=== PATIENT | female | born 1940 | race Caucasian/White ===

== ENCOUNTER → 2016-07-19 | Outpatient (CLI) | payer OTHER ==
[~2016-07-19] MED LIST: ALBUAER2 INH; ALPR0.5T PO; ASPEC81 PO; BCTO TOP; BENZ10LO2 PO; BSP/10 PO; BUSP-8 PO; CARI350T28 PO; CLOB-65 EXT; CYM/30 PO; CYM60 PO; DICL1GEL28 TOP; DPH/ PO; ERGO1CAP35 PO; EZET10TA63 PO; FLUO0.05 TOP; FLV1 PO; FURO40TA3 PO; HYDCR1CL EXT; HYDR-389 PO; ISS/10 PO; KETO2CRE14 EX; LEVO112T2 PO; METO50TA7 PO; MORP30TA23 PO; NTRGSL/4 SL; OXGN; PHEN-876 PO; POTA10CA28 PO; ROSU40TA PO; SPIR25TA PO; WARF3TAB PO; [UNRECOGNIZED DRUG - CODE]; [UNRECOGNIZED DRUG - CODE] OTL
[2016-07-19 12:31] LABS: INR 2.4 (0.9-1.1); PROTHROMBIN TIME (PATIENT) 26.6 SECONDS (9.0-12.0)
== END | disposition home or self-care (01) ==
LOC: C.LABWYN 10:55
PROVIDERS: ATTEND Pharmacist Pharmacotherapy
DX: Z51.81 Encounter for therapeutic drug level monitoring (principal); Z79.01 Long term (current) use of anticoagulants

== ENCOUNTER → 2016-08-16 | Outpatient (CLI) | payer OTHER ==
[2016-08-16 08:59] LABS: INR 2.2 (0.9-1.1); PROTHROMBIN TIME (PATIENT) 24.1 SECONDS (9.0-12.0)
== END | disposition home or self-care (01) ==
LOC: C.LABWYN 08:29
PROVIDERS: ATTEND Internal Medicine
DX: Z51.81 Encounter for therapeutic drug level monitoring (principal); Z79.01 Long term (current) use of anticoagulants

== ENCOUNTER → 2016-08-25 | Outpatient (CLI) | payer OTHER ==
[2016-08-25 13:05] LABS: BLOOD UREA NITROGEN 13 mg/dl (7-18); CARBON DIOXIDE 35 mmol/L (21-32); CHLORIDE 103 mmol/L (98-107); CREATININE 0.86 mg/dl (0.60-1.20); GLUCOSE 82 mg/dl (70-99); POTASSIUM 4.2 mmol/L (3.5-5.1); SODIUM 143 mmol/L (136-145)
== END | disposition home or self-care (01) ==
LOC: C.LABWYN 12:46
PROVIDERS: ATTEND Nurse Practitioner Family
DX: I10 Essential (primary) hypertension (principal)

== ENCOUNTER → 2016-09-15 | Outpatient (CLI) | payer OTHER ==
[2016-09-15 13:38] LABS: INR 2.1 (0.9-1.1); PROTHROMBIN TIME (PATIENT) 22.8 SECONDS (9.0-12.0)
== END | disposition home or self-care (01) ==
LOC: C.LABWYN 07:30
PROVIDERS: ATTEND Pharmacist Pharmacotherapy
DX: Z51.81 Encounter for therapeutic drug level monitoring (principal); Z79.01 Long term (current) use of anticoagulants

== ENCOUNTER → 2016-10-13 | Outpatient (CLI) | payer OTHER ==
[2016-10-13 12:29] LABS: INR 2.4 (0.9-1.1); PROTHROMBIN TIME (PATIENT) 26.8 SECONDS (9.0-12.0)
== END | disposition home or self-care (01) ==
LOC: C.LABWYN 12:18
PROVIDERS: ATTEND Pharmacist Pharmacotherapy
DX: Z51.81 Encounter for therapeutic drug level monitoring (principal); Z79.01 Long term (current) use of anticoagulants

== ENCOUNTER → 2016-11-10 | Outpatient (CLI) | payer OTHER ==
[2016-11-10 12:27] LABS: INR 2.5 (0.9-1.1); PROTHROMBIN TIME (PATIENT) 28.2 SECONDS (9.0-12.0)
== END | disposition home or self-care (01) ==
LOC: C.LABWYN 12:44
PROVIDERS: ATTEND Pharmacist Pharmacotherapy
DX: I21.3 ST elevation (STEMI) myocardial infarction of unspecified site (principal)

== ENCOUNTER → 2016-12-08 | Outpatient (CLI) | payer OTHER ==
[2016-12-08 12:33] LABS: INR 2.7 (0.9-1.1); PROTHROMBIN TIME (PATIENT) 30.4 SECONDS (9.0-12.0)
== END | disposition home or self-care (01) ==
LOC: C.LABWYN 13:40
PROVIDERS: ATTEND Pharmacist Pharmacotherapy
DX: Z51.81 Encounter for therapeutic drug level monitoring (principal); Z79.01 Long term (current) use of anticoagulants

== ENCOUNTER → 2017-01-05 | Outpatient (CLI) | payer OTHER ==
[2017-01-05 12:44] LABS: INR 2.3 (0.9-1.1); PROTHROMBIN TIME (PATIENT) 25.7 SECONDS (9.0-12.0)
== END | disposition home or self-care (01) ==
LOC: C.LABWYN 13:30
PROVIDERS: ATTEND Pharmacist Pharmacotherapy
DX: Z51.81 Encounter for therapeutic drug level monitoring (principal); Z79.01 Long term (current) use of anticoagulants

== ENCOUNTER → 2017-02-02 | Outpatient (CLI) | payer OTHER ==
[2017-02-02 12:43] LABS: INR 2.7 (0.9-1.1); PROTHROMBIN TIME (PATIENT) 30.6 SECONDS (9.0-12.0)
== END | disposition home or self-care (01) ==
LOC: C.LABWYN 12:32
PROVIDERS: ATTEND Pharmacist Pharmacotherapy
DX: Z51.81 Encounter for therapeutic drug level monitoring (principal); Z79.01 Long term (current) use of anticoagulants

== ENCOUNTER → 2017-03-02 | Outpatient (CLI) | payer OTHER ==
[2017-03-02 12:44] LABS: INR 1.9 (0.9-1.1); PROTHROMBIN TIME (PATIENT) 20.7 SECONDS (9.0-12.0)
== END | disposition home or self-care (01) ==
LOC: C.LABWYN 15:25
PROVIDERS: ATTEND Internal Medicine
DX: Z79.01 Long term (current) use of anticoagulants (principal)

== ENCOUNTER → 2017-03-30 | Outpatient (CLI) | payer OTHER ==
[2017-03-30 12:11] LABS: PROTHROMBIN TIME (PATIENT) 22.1 SECONDS (9.0-12.0)
== END | disposition home or self-care (01) ==
LOC: C.LABWYN 12:20
PROVIDERS: ATTEND Internal Medicine
DX: Z51.81 Encounter for therapeutic drug level monitoring (principal); Z79.01 Long term (current) use of anticoagulants

== ENCOUNTER → 2017-05-30 | Outpatient (CLI) | payer OTHER ==
[2017-05-30 12:45] LABS: INR 2.2 (0.9-1.1); PROTHROMBIN TIME (PATIENT) 23.9 SECONDS (9.0-12.0)
== END | disposition home or self-care (01) ==
LOC: C.LABWYN 12:13
PROVIDERS: ATTEND Pharmacist Pharmacotherapy
DX: Z51.81 Encounter for therapeutic drug level monitoring (principal); Z79.01 Long term (current) use of anticoagulants

== ENCOUNTER → 2017-06-27 | Outpatient (CLI) | payer OTHER ==
[2017-06-27 12:43] LABS: INR 2.2 (0.9-1.1); PROTHROMBIN TIME (PATIENT) 22.9 SECONDS (9.0-12.0)
== END | disposition home or self-care (01) ==
LOC: C.LABPVFM 10:28
PROVIDERS: ATTEND Pharmacist Pharmacotherapy
DX: Z51.81 Encounter for therapeutic drug level monitoring (principal); Z79.01 Long term (current) use of anticoagulants

== ENCOUNTER → 2017-07-25 | Outpatient (CLI) | payer OTHER ==
[2017-07-25 12:43] LABS: INR 2.9 (0.9-1.1)
== END | disposition home or self-care (01) ==
LOC: C.LABWYN 11:07
PROVIDERS: ATTEND Pharmacist Pharmacotherapy
DX: Z51.81 Encounter for therapeutic drug level monitoring (principal); Z79.02 Long term (current) use of antithrombotics/antiplatelets

== ENCOUNTER → 2017-08-22 | Outpatient (CLI) | payer OTHER ==
[~2017-08-22] MED LIST changes: -METO50TA7 PO; +METO50TA8 PO
[2017-08-22 12:52] LABS: INR 2.3 (0.9-1.1)
== END | disposition home or self-care (01) ==
LOC: C.LABWYN 10:52
PROVIDERS: ATTEND Physician Assistant
DX: Z51.81 Encounter for therapeutic drug level monitoring (principal); Z79.01 Long term (current) use of anticoagulants

== ENCOUNTER → 2017-09-19 | Outpatient (CLI) | payer OTHER ==
[2017-09-19 13:01] LABS: INR 1.8 (0.9-1.1)
== END | disposition home or self-care (01) ==
LOC: C.LABWYN 12:05
PROVIDERS: ATTEND Pharmacist Pharmacotherapy
DX: Z51.81 Encounter for therapeutic drug level monitoring (principal); I48.91 Unspecified atrial fibrillation; Z79.01 Long term (current) use of anticoagulants

== ENCOUNTER → 2017-09-21 | Outpatient (CLI) | payer OTHER ==
[2017-09-21 13:27] LABS: HEMOGLOBIN A1C 4.9 % (4.5-5.6)
== END | disposition home or self-care (01) ==
LOC: C.LABWYN 08:47
PROVIDERS: ATTEND Physician Assistant
DX: I25.10 Atherosclerotic heart disease of native coronary artery without angina pectoris (principal); N18.3 Chronic kidney disease, stage 3 (moderate)

== ENCOUNTER → 2017-10-17 | Outpatient (CLI) | payer OTHER ==
[2017-10-17 13:17] LABS: INR 2.7 (0.9-1.1)
== END | disposition home or self-care (01) ==
LOC: C.LABWYN 11:43
PROVIDERS: ATTEND Pharmacist Pharmacotherapy
DX: I48.91 Unspecified atrial fibrillation (principal); Z79.01 Long term (current) use of anticoagulants

== ENCOUNTER → 2017-10-26 | Outpatient (CLI) | payer OTHER ==
[2017-10-26 12:56] LABS: HEMATOCRIT 42.5 % (37-47); HEMOGLOBIN 13.3 g/dL (12.0-16.0); MEAN CELL VOLUME 97.5 fL (80-100); MEAN CORPUSCULAR HEMOGLOBIN 30.5 pg (25-34); MEAN CORPUSCULAR HGB CONC 31.3 g/dl (32-36); MEAN PLATELET VOLUME 10.1 fL (7.4-10.4); PLATELET COUNT 180 K/uL (130-400); RED CELL DISTRIBUTION WIDTH SD 50.3 fL (36.4-46.3); WHITE BLOOD COUNT 6.08 K/uL (4.8-10.8)
[2017-10-26 14:13] LABS: BLOOD UREA NITROGEN 21 mg/dl (7-18); CALCIUM 8.6 mg/dl (8.5-10.1); CARBON DIOXIDE 36 mmol/L (21-32); CREATININE 1.09 mg/dl (0.60-1.20); GLUCOSE 155 mg/dl (70-99); POTASSIUM 4.6 mmol/L (3.5-5.1); SODIUM 139 mmol/L (136-145)
== END | disposition home or self-care (01) ==
LOC: C.LABWYN 13:25
PROVIDERS: ATTEND Nurse Practitioner Adult Health
DX: E03.9 Hypothyroidism, unspecified (principal); M81.0 Age-related osteoporosis without current pathological fracture; E78.5 Hyperlipidemia, unspecified; I48.91 Unspecified atrial fibrillation

== ENCOUNTER → 2017-10-31 | Outpatient (CLI) | payer OTHER | END | disposition home or self-care (01) | LOC: C.LABWYN 17:29 | PROVIDERS: ATTEND Nurse Practitioner Adult Health | DX: E78.5 Hyperlipidemia, unspecified (principal); I10 Essential (primary) hypertension; E03.9 Hypothyroidism, unspecified; M81.0 Age-related osteoporosis without current pathological fracture ==

== ENCOUNTER → 2017-11-14 | Outpatient (CLI) | payer OTHER ==
[2017-11-14 14:12] LABS: INR 3.2 (0.9-1.1)
== END | disposition home or self-care (01) ==
LOC: C.LABWYN 16:53
PROVIDERS: ATTEND Pharmacist Ambulatory Care
DX: I48.91 Unspecified atrial fibrillation (principal)

== ENCOUNTER → 2018-01-09 | Outpatient (CLI) | payer OTHER ==
[~2018-01-09] MED LIST changes: -ALBUAER2 INH; +ALPR-411 PO; -ALPR0.5T PO; -ASPEC81 PO; +ASPI81TA28 PO; -BCTO TOP; -BENZ10LO2 PO; -BSP/10 PO; -CLOB-65 EXT; -CYM/30 PO; -CYM60 PO; +DEXT30TA7 PO; -DICL1GEL28 TOP; +DIPH-416 PO; -DPH/ PO; +DULO60CA44 PO; -ERGO1CAP35 PO; +ERGO500037 PO; -FLUO0.05 TOP; -FLV1 PO; +FOLI1TAB8 PO; +FURO-85 PO; -FURO40TA3 PO; -HYDCR1CL EXT; -HYDR-389 PO; -KETO2CRE14 EX; -LEVO112T2 PO; +LEVO137T3 PO; +LSX40 PO; +METO25TA3 PO; -METO50TA8 PO; +MORP1TAB12 PO; -MORP30TA23 PO; -NTRGSL/4 SL; +NTRGSL/4 UT; -PHEN-876 PO; -POTA10CA28 PO; -WARF3TAB PO; +WARF3TAB6 PO; -[UNRECOGNIZED DRUG - CODE]; -[UNRECOGNIZED DRUG - CODE] OTL; +[UNRECOGNIZED DRUG - CODE] TOP
[2018-01-09 12:58] LABS: INR 2.9 (0.9-1.1)
== END | disposition home or self-care (01) ==
LOC: C.LABWYN 13:48
PROVIDERS: ATTEND Internal Medicine
DX: I48.91 Unspecified atrial fibrillation (principal)

== ENCOUNTER → 2018-02-06 | Outpatient (CLI) | payer OTHER | END | disposition home or self-care (01) | LOC: C.LABWYN 16:23 | PROVIDERS: ATTEND Pharmacist Pharmacotherapy | DX: Z51.81 Encounter for therapeutic drug level monitoring (principal); Z79.01 Long term (current) use of anticoagulants ==

== ENCOUNTER 2019-01-23 08:22 | Inpatient (IN) ==
[2019-01-23] MEDS ORDERED: RAPID SEQUENCE INDUCTION BAG ONE (08:26)
[2019-01-23] MEDS ORDERED: ALBUT/IPRATROP 3MG/0.5MG NEB 3 ML VIAL ONE (08:29)
[2019-01-23] MEDS ORDERED: ALBUT/IPRATROP 3MG/0.5MG NEB 3 ML VIAL INH STA (08:30)
[2019-01-23] MEDS ORDERED: NITROGLYCERIN 2% OINTMENT 30GM TUBE EXT STA (08:37)
[2019-01-23] MEDS ORDERED: NITROGLYCERIN 2% OINTMENT 30GM TUBE ONE (08:39)
[2019-01-23] MEDS ORDERED: FUROSEMIDE 40 MG/4 ML VIAL IV STA (08:45)
[2019-01-23 08:50] LABS: Basophils # (auto) 0.03 K/uL (0-0.2); Basophils % (auto) 0.3 %; Hematocrit (blood only) 48.3 % (37-47); Immature Granulocytes # (auto) 0.04 K/uL (0.00-0.02); Immature Granulocytes % (auto) 0.4 %; Lymphocytes # (auto) 1.63 K/uL (1.2-3.4); Lymphocytes % (auto) 16.3 %; Mean Corpuscular Hgb Conc 33.1 g/dL (32-36); Mean Corpuscular Volume 90.8 fL (80-100); Mean Platelet Volume 9.5 fL (7.4-10.4); Monocytes # (auto) 1.86 K/uL (0.11-0.59); Monocytes % (auto) 18.6 %; Neutrophils # (auto) 6.46 K/uL (1.4-6.5); Neutrophils % (auto) 64.4 %; Nucleated RBC # (auto) 0.16 K/uL (0-0); Nucleated RBC % (auto) 1.6 %; Platelet Count 210 K/uL (130-400); RDW Coefficient of Variation 18.1 % (11.5-14.5); RDW Standard Deviation 59.8 fL (36.4-46.3); Red Blood Count 5.32 M/uL (4.2-5.4); White Blood Count 10.02 K/uL (4.8-10.8)
[2019-01-23 08:53] LABS: Base Excess VBG 2.8 mEq/L; Oxygen Saturation VBG 66.9 %; pH VBG 7.28 (7.36-7.41)
--- NOTE | 2019-01-23 09:06 | XRay Report ---
SINGLE VIEW CHEST CLINICAL HISTORY: Dyspnea. FINDINGS: An AP, portable, upright chest radiograph is compared to study dated 12/10/2017. The examina tion is degraded by portable technique and patient rotation. The heart is enlarged and there is ath erosclerotic calcification of the thoracic aorta. There is pulmonary vascular congestion. Diffuse ret iculonodular densities and hazy opacities likely represent interstitial edema. No large pleural effus ion or pneumothorax is seen. The skeletal structures are osteopenic. The bony thorax is grossly intac t. IMPRESSION: 1. Cardiomegaly with evidence of congestive failure. 2. Diffuse reticulonodular airspace opacities have increased from previous and likely represent a com ponent of interstitial edema. Clinical correlation will be required and radiographic follow-up to res olution is recommended. Electronically signed by: Janes Aguirre M.D. 01/23/2019 9:05 AM
[2019-01-23 09:07] LABS: Alanine Aminotransferase 27 U/L (12-78); Albumin Level 3.1 gm/dl (3.4-5.0); Aspartate Aminotransferase 28 U/L (15-37); BUN Creatinine Ratio 19.6 (10-20); Blood Urea Nitrogen 23 mg/dl (7-18); Calcium 9.8 mg/dl (8.5-10.1); Carbon Dioxide 31 mmol/L (21-32); Chloride 100 mmol/L (98-107); Est GFR (African American) 53.5; Est GFR (Non-African American) 46.2; Glucose 134 mg/dl (70-99); Magnesium 2.1 mg/dl (1.8-2.4); Potassium 4.4 mmol/L (3.5-5.1); Sodium 139 mmol/L (136-145)
[2019-01-23 09:13] LABS: Prothrombin Time 54.8 Seconds (9.0-12.0)
[2019-01-23 09:15] LABS: INR 6.1 (0.9-1.1); Partial Thromboplastin Time 53.8 Seconds (21.0-31.0)
[2019-01-23 09:19] LABS: Appearance Urine Cloudy (Clear); Bacteria Urine Automated Negative (Negative); Color Urine Dark Yellow; Epithelial Cell Urine Auto >30 /lpf (0-5); Glucose Urine UA Negative (Negative); Ketones Urine Trace (Negative); Leukocyte Esterase Urine Negative (Negative); Nitrite Urine Negative (Negative); Protein Urine 3+ (Negative); Specific Gravity Urine 1.031 (1.000-1.030); Urobilinogen Urine Negative (Negative); pH Urine 5.5 (4.5-7.5)
[2019-01-23 09:26] LABS: Albumin Globulin Ratio 0.6 (0.9-2); Alkaline Phosphatase 102 U/L (45-117); Bilirubin,Total 0.7 mg/dl (0.2-1); Globulin 5.2 gm/dl (2.5-4.0); NT Pro B Type Natriuretic Pept 3988 pg/ml (0-1800); Total Protein 8.3 gm/dl (6.4-8.2); Troponin I 0.439 ng/ml (0-0.045)
[2019-01-23 09:32] LABS: Bilirubin Urine Negative (Negative); Cast Urine Automated >30 /lpf (0-5); Granular Casts Urine >30 /lpf (0); Ictotest Urine Negative (Negative)
--- NOTE | 2019-01-23 10:24 | History & Physical Report ---
Date of Service January 23, 2019 Assessment & Plan (1) Acute on chronic respiratory failure: This is a 78-year-old female with a PMH of chronic respiratory failure with hypoxia on 2L [place] O2, COPD, current tobacco use, CAD (s/p stents), severe ischemic cardiomyopathy with EF of 20-25%, CKD 3, paroxysmal A. fib on anticoagulation, fibromyalgia and other medical problems listed below who presents from [facility] with acute respiratory failure in setting of acute decompensated heart failure and COPD exacerbation. -Hypoxic in the 60s, cyanotic and dyspneic on home 2L this morning. Significant improvement on BiPAP in the ED -Continue to monitor on BiPAP. VBG with pH of 7.28. Lactic elevated 2.7 -In setting of COPD exacerbation in active smoker, acute decompensated heart failure -Management per ICU (2) Acute decompensated heart failure: History of anterior WA in 2005 with severe ischemic cardiomyopathy -Most recent echo from 2016 with severely enlarged left ventricular cavity, akinesis of mid and apical anterior septum and inferior shin, akinesis of the apical lateral and anterior shin. Calculated EF 20 to 25% -Was evaluated by EP service in 2013 and ICD therapy still offered but declined -CXR today with cardiomegaly and evidence of congestive heart failure. Troponin mildly elevated at 0.439. BNP elevated at 3988 -Given 60mg IV Lasix in ED, strict I&Os, daily weights -Holding home PO lasix (3) COPD exacerbation: Active smoker but has decreased amount to 10 cigarettes daily -Continue BiPAP, IV solu-medrol, neb treatments and Levaquin per Dr. Horn -ABG showed improvement of pH from 7.28 to 7.36 since initiation of bipap -Recently established with [facility] pulmonology for COPD. CT chest with evidence of 9 mm ground glass opacity with six-month follow-up CT scheduled in April 2019 (4) CAD (coronary artery disease): H/o anterior WA in 2005 s/p stents -No chest pain or ischemic changes on EKG -Continue baby aspirin, Isosordil, statin (5) CKD (chronic kidney disease), stage III: Kidney function at baseline -Continue to monitor with daily BMP (6) Supratherapeutic INR: INR supratherapeutic at 6.1 -Holding anticoagulation, no evidence of active bleeding (7) Paroxysmal A-fib: Sinus tachycardia on EKG -Continue Toprol (8) Tobacco use: Strong cessation recommended (9) Mood disorder: Continue Cymbalta, Buspar, Xanax PRN (10) Fibromyalgia: Continue home MS Contin, muscle relaxer as needed (11) Hypothyroidism: Continue levothyroxine DVT Ppx: Holding coumadin for now Code status: FULL per discussion with patient and family. Only interested in em ergent intubation, not on [facility] mechanical [facility] PCP: Sandra at [facility] Dispo: Admitted to ICU. Discharge planning ordered. Patient seen in collaboration with Dr. An. Please see addendum. History of Present Illness Chief Complaint: Respiratory failure Primary Care Provider: [facility] This is a 78-year-old female with a PMH of chronic respiratory failure with hypoxia on 2L [place] O2, COPD, current tobacco use, CAD (s/p stents), severe ischemic cardiomyopathy with EF of 20-25%, CKD 3, paroxysmal A. fib on anticoagulation, fibromyalgia and other medical problems listed below who presents from [facility] with acute respiratory failure. Patient was reportedly found this morning hypoxic in the 60s, cyanotic and dyspneic on home 2 L. Placed on high flow oxygen per EMS and transitioned to BiPAP in the ED with improvement. Patient with oxygen saturation of 96% on BiPAP now with resolution of tachypnea. History of anterior WA in 2005 with severe ischemic cardiomyopathy. Most recent echo from 2016 with severely enlarged left ventricular cavity, akinesis of mid and apical anterior septum and inferior shin, akinesis of the apical lateral and anterior shin. Calculated EF 20 to 25%. Was evaluated by EP service in 2013 but was not felt to be an ideal candidate for ICD therapy. ICD therapy still offered but declined. Follows with Nikolay So PA-C and is on Lasix 20mg and spironolactone 25mg daily. Also recently established with [facility] pulmonology for COPD. CT chest with evidence of 9 mm ground glass opacity with six-month follow-up CT scheduled in April 2019. Is on Coumadin for paroxysmal atrial fibrillation. In ED, found initially to be hypertensive at 138/102 with tachypnea of 32. EKG reveals sinus tach with PVCs at 123 bpm. Chest x-ray with cardiomegaly and evidence of congestive heart failure. VBG with pH of 7.28. Lactic elevated 2.7. Troponin mildly elevated at 0.439. BNP elevated at 3988. Clinical status much improved on BiPAP. Also received breathing treatment, IV Lasix 60 mg and nitro paste. ED physician discussed with ICU attending, who will evaluate the patient further in the unit. History primarily obtained by daughter at bedside. Patient is alert and conversing but ROS limited due to patient being on BiPAP. Denies any fever, chills, chest pain. Chronic abdominal pain. Allergies Allergy/AdvReac Type Severity Reaction Status Date / Time fentanyl Allergy Mild Verified 01/23/19 09:22 nitrofurantoin Allergy Mild OTHER Verified 01/23/19 09:22 Penicillins Allergy Mild Verified 01/23/19 09:22 Home Medications Home Medications Medication Instructions Recorded Confirmed Type albuterol sulfate [Ventolin HFA] 90 mcg INHALATION Q4H PRN 01/23/19 01/23/19 History alprazolam 0.5 mg PO TID PRN 01/23/19 01/23/19 History alum-mag hydroxide-simeth [Mi-Acid] 15 ml PO Q4H PRN 01/23/19 01/23/19 History aspirin 81 mg PO HS 01/23/19 01/23/19 History betamethasone, augmented 1 applic TOPICAL BID 01/23/19 01/23/19 History buspirone 10 mg PO BID 01/23/19 01/23/19 History carboxymethylcellulose-glycern 0.5 drp OPHTHALMIC (EYE) TID 01/23/19 01/23/19 History [Refresh Optive] carisoprodol 350 mg PO TID PRN 01/23/19 01/23/19 History duloxetine 60 mg PO HS 01/23/19 01/23/19 History ergocalciferol (vitamin D2) 50,000 unit PO WK 01/23/19 01/23/19 History [Vitamin D2] ezetimibe 10 mg PO PM 01/23/19 01/23/19 History fluticasone propion-salmeterol 1 inh INHALATION Q12H 01/23/19 01/23/19 History [Advair Diskus] folic acid 1 mg PO QAM 01/23/19 01/23/19 History furosemide 20 mg PO DAILY 01/23/19 01/23/19 History guaifenesin [Mucinex] 600 mg PO BID PRN 01/23/19 01/23/19 History ipratropium-albuterol 0.5 ml INHALATION Q4H PRN 01/23/19 01/23/19 History iron,carbonyl-vitamin C [Vitron-C] 65 tab PO MOWEFR@0900 01/23/19 01/23/19 History isosorbide dinitrate 10 mg PO TID 01/23/19 01/23/19 History ketoconazole 2 % TOPICAL BID PRN 01/23/19 01/23/19 History levothyroxine 112 mcg PO QAM 01/23/19 01/23/19 History metoprolol succinate 25 mg PO QAM 01/23/19 01/23/19 History morphine 30 mg PO Q12H PRN 01/23/19 01/23/19 History nitroglycerin 0.4 mg SUBLINGUAL QAM PRN 01/23/19 01/23/19 History ondansetron HCl 4 mg PO Q6H PRN 01/23/19 01/23/19 History phenazopyridine 200 mg PO TID PRN 01/23/19 01/23/19 History rosuvastatin 40 mg PO HS 01/23/19 01/23/19 History spironolactone 25 mg PO 5XWK 01/23/19 01/23/19 History tiotropium bromide [Spiriva with 18 mcg INHALATION QAM 01/23/19 01/23/19 History HandiHaler] tobramycin 1 drp OPHTHALMIC (EYE) Q4H 01/23/19 01/23/19 History tramadol 50 mg PO Q4H PRN 01/23/19 01/23/19 History warfarin 4 mg PO HS 01/23/19 01/23/19 History white petrolatum-mineral oil 20 inch OPHTHALMIC (EYE) HS 01/23/19 01/23/19 History [Soothe Night Time Lubricant] Past Med/Surg History Medical History Tobacco use (Chronic) Mood disorder (Chronic) Fibromyalgia (Chronic) CKD (chronic kidney disease), stage III (Chronic) CAD (coronary artery disease) (Chronic) Hypothyroidism (Chronic) Chronic respiratory failure (Chronic) home 2L [place] O2 Ischemic cardiomyopathy (Chronic) IBS (irritable bowel syndrome) (Chronic) COPD (chronic obstructive pulmonary disease) (Chronic) Chronic interstitial cystitis (Chronic) Chronic pain (Chronic) Surgical History H/O cystoscopy (Chronic) H/O heart artery stent (Chronic) Family History Other Colorectal cancer Heart disease Social History Preferred Language: [place] Communication Ability: Effective Demurrage Clerk Required: Yes Beliefs That Will Affect Care: None Current Living Situation: Personal Care Facility Current Living Situation Comment: [facility] Other Information That Helps Us Care for You: No Feels Safe at Home: Yes Safety Concerns: Feels Safe At This Time Smoking Status: Current every day smoker Tobacco Type: cigarettes Cigarettes Per Day: 10 Hx Alcohol Use: No Hx Substance Use: No Review of Systems Review of Systems: ROS limited due to patient requiring BiPAP for respiratory failure Physical Exam Physical Exam: General Appearance: WD/WN, no apparent distress, wearing bipap mask, alert Head: normocephalic, atraumatic Eyes: normal inspection, PERRL, EOMI ENT: hearing grossly normal, wearing bipap mask Neck: supple, no JVD, no adenopathy Respiratory/Chest: Coarse breath sounds throughout with bibasilar crackles, scattered expiratory wheezes. No respiratory distress or accessory muscle use Cardiovascular: tachycardic, no murmur appreciated, normal peripheral pulses , trace BLE edema Abdomen/GI: normal bowel sounds, soft, non-tender to palpation Extremities/Musculoskelatal: normal inspection, no calf tenderness, normal capillary refill Neurologic/Psych: alert, normal mood/affect, oriented x 3, moves all extremities spontaneously Skin: normal color, warm/dry Results & Data Vital Signs (Past 12 Hours) Vital Signs Temp Pulse Resp BP Pulse Ox 01/23/19 10:10 112 H 96 01/23/19 10:01 113 H 24 132/85 97 01/23/19 10:00 113 H 98 01/23/19 09:50 94 H 96 01/23/19 09:46 112 H 26 H 140/78 96 01/23/19 09:40 112 H 97 01/23/19 09:32 113 H 97 01/23/19 09:31 103 H 125/81 97 01/23/19 09:30 112 H 97 01/23/19 09:20 116 H 97 01/23/19 09:16 114 H 138/108 H 98 01/23/19 09:10 119 H 97 01/23/19 09:01 115 H 32 H 138/102 H 99 01/23/19 09:00 153 H 98 01/23/19 08:50 116 H 98 01/23/19 08:46 120 H 30 H 140/79 98 01/23/19 08:40 121 H 97 01/23/19 08:38 122 H 30 H 134/73 98 01/23/19 08:34 123 H 96 01/23/19 08:30 96 01/23/19 08:28 36.9 C 126 H 35 H 143/95 H 95 01/23/19 08:25 120 H 34 H 98 Laboratory Results Short CBC 01/23/19 Range/Units 08:39 WBC 10.02 (4.8-10.8) K/uL Hgb 16.0 (12.0-16.0) g/dL Hct 48.3 H (37-47) % Plt Count 210 (130-400) K/uL BMP 01/23/19 08:39 Sodium 139 Potassium 4.4 Chloride 100 Carbon Dioxide 31 BUN 23 H Creatinine 1.15 Glucose 134 H Calcium 9.8 Cardiac Enzymes 01/23/19 Range/Units 08:39 Troponin I 0.439 H* (0-0.045) ng/ml Liver Function 01/23/19 Range/Units 08:39 Total Bilirubin 0.7 (0.2-1) mg/dl AST 28 (15-37) U/L ALT 27 (12-78) U/L Alkaline Phosphatase 102 (45-117) U/L Albumin 3.1 L (3.4-5.0) gm/dl Urine 01/23/19 Range/Units 09:05 Urine Color Dark Yellow Urine Appearance Cloudy A (Clear) Urine pH 5.5 (4.5-7.5) Ur Specific [place] 1.031 H (1.000-1.030) Urine Protein 3+ H (Negative) Urine Glucose (UA) Negative (Negative) Diagnostic Findings CXR: IMPRESSION: 1. Cardiomegaly with evidence of congestive failure. 2. Diffuse reticulonodular airspace opacities have increased from previous and likely represent a component of interstitial edema. Clinical correlation will be required and radiographic follow-up to resolution is recommended. ECG Rhythm: sinus tachycardia Findings: + PVC Supervising Physician Co-Signing Physician Notes Attending addendum: Patient seen and examined care coordinated with Michelle Ghosh with [facility] This is a 78-year-old female with complex past medical history of chronic respiratory failure on 2 L O2 continuous/COPD, ongoing tobacco abuse, severe ischemic cardiomyopathy with EF of 20-25%, CKD stage III paroxysmal A. fib on anticoagulation Sent from [facility] [place] [facility] with hypoxic respiratory failure with oxygenation in the low 60s, requiring BiPAP ICU admission Patient's respiratory status improved after being on BiPAP, nebulizer treatment, antibiotic Chest x-ray: Cardiomegaly with evidence of congestive heart failure: proBNP elevated 3988, given 60 mg IV Lasix Physical exam:( focused) General, patient is alert and awake, requiring high flow oxygen, does not appear to be any distress HEENT, sclera nonicteric Pulmonary: Diffuse wheezing in all lung field, with bibasilar crackles Cardio: Irregularly irregular Abdomen: Benign Neuro: No focal neurological deficit Assessment plan: ACUTE HYPOXIC RESPIRATORY FAILURE HISTORY OF CHRONIC RESPIRATORY FAILURE WITH HOME O2 Acute respiratory failure with hypoxia and low-dose 60s on home 2 L oxygen via nasal cannula, improved after BiPAP treatment, possible cause of hypoxic respiratory failure -decompensation CHF/COPD exacerbation Improved after IV Lasix, nebulizer treatment, IV Solu-Medrol ACUTE DECOMPENSATED HEART FAILURE WITH SYSTOLIC DYSFUNCTION 3 of WA in 2005 with severe ischemic cardiomyopathy, recent echo EF 20-25%, not a candidate for AICD patient refused AICD in past IV Lasix, continue diuresis Cardiology eval ELEVATED TROPONIN/TYPE II [place] Patient had mild elevation of troponin, without active anginal symptoms, Possible demand ischemia in the setting of severe hypoxemic respiratory failure Patient's INR elevated more than 6 Indication of IV heparin anticoagulation Deferred repeat echo, cardiology consult Please refer to further documentation by Michelle Ghosh PA-C for discussion of other chronic issues Rosalia An MD
[2019-01-23] MEDS ORDERED: ICU PROTOCOL FOR HYPERGLYCEMIA PRN (10:42)
--- NOTE | 2019-01-23 11:13 | Critical Care Consultation ---
Date of Consultation January 23, 2019 Assessment & Plan (1) Admitted to intensive care unit: Elderly female admitted with acute respiratory failure secondary to acute pulmonary edema/exacerbation of chronic obstructive pulmonary disease. Neuro: From the neuro point the patient remains stable. There are no neurological deficit at this time and she is moving all extremities. Cardiac: The patient was admitted with pulmonary edema, tachycardia. She received 60 mg of IV Lasix seems to be putting out good urine. Oxygenation is stable at this time 95% on 70% FiO2 on BiPAP. We will continue with all her current management and also BiPAP supplements. Her troponin is elevated to 0.439 and her BNP is also elevated to 3988. Respiratory: The patient continued to smoke more than half pack of cigarettes a day. She is also admitted with acute exacerbation of chronic obstructive pulmonary disease and respiratory failure. Currently she remains on BiPAP and we are going to continue with that. We also going to start on NicoDerm patch 21 mg every 24 hours and also IV Solu-Medrol and nebulizer treatment. We will continue with the BiPAP and I am going to do ABG on current settings and adjust her BiPAP accordingly. According to the daughter patient was diagnosed with right upper lobe nodule on a CT scan of the chest. We do not have those results yet. Once she is more stable will have a CT scan of the chest and follow-up with a bronchoscopy if indicated. She was also strongly recommended to stop smoking. The patient also had ABG which revealed pH of 7.36 PCO2 58 PO2 of 94 base excess of 8 bicarb of 34 and saturation of 97% and this was on 50% FiO2 on a BiPAP. We will go down on high FiO2 to 40% and monitor closely. The patient is a chronic retainer of the CO2 secondary to her chronic moderate to severe COPD. I am also going to give her a course of Levaquin IV 500 mg daily. GI: From GI point the patient remains stable at this time. Hematology: The patient overall remains stable. Her H&H and platelets are also stable. Her H&H is 16/48 and her platelets are 210. Renal: The patient is making good urine. The patient received 60 mg of IV Lasix. Her potassium is 4.4 and her BUN/creatinine is 23/1.15. Her lactate was also elevated to 2.7. We are going to monitor her electrolytes very closely. Her magnesium was 1.9. If needed we will supplement all the electrolytes. If also needed we will give her another dose of IV Lasix. Endocrine: The patient had a TSH drawn which was 0.094. We are going to check it when she is more stable because at this stage she is admitted with the acute pulmonary edema and acute respiratory failure so results will be abnormal. Her blood sugar remains stable at 134. The patient is also on steroids and we are going to monitor it very closely and she is also on ICU glycemic control. I have discussed with the family at length and answered all the questions. I have spent greater than 55 minutes of critical care time. (2) Pulmonary edema: (3) Respiratory distress: (4) CHF (congestive heart failure): (5) CO2 retention: (6) Respiratory acidosis: (7) COPD exacerbation: History of Present Illness Reason for Consultation: Respiratory failure/patient on BiPAP Requesting Physician: Rosalia An MD Attending Physician: Rosalia An MD History of Present Illness This is a 78-year-old female who has past medical history significant for chronic obstructive pulmonary disease as well as cardiomyopathy and also she had coronary artery disease status post stent placement in the past and paroxysmal atrial fibrillation currently on anticoagulation, was brought into the hospital with increasing shortness of breath tightness in her chest and oxygen saturation of only in the 60s. According to the daughter who is by the bedside the patient continued to smoke more than half pack of cigarettes a day and she lives in a ssisted living and she was doing good until last night she was more short of breath she was hypoxemic and she was brought here where it was noticed that she was in acute pulmonary edema. In the emergency room she received 60 mg of IV Lasix and currently she is still passing urine. The patient remains on a BiPAP and seems to be oxygenating well and to 98%. The patient also has previous history of coronary artery disease, status post stent placement in the past and also history of chronic kidney disease. Currently she continues to smoke. 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 We do not have any results at this time. It seems patient also had a CT of the chest which revealed right upper lobe nodules and she refused for a bronchoscopy so she was told or recommended to go for a follow-up CT scan which is still pending. Currently she is still short of breath and remains on a BiPAP and a high flow of oxygen supplementation with saturation around 97%. Allergies Allergy/AdvReac Type Severity Reaction Status Date / Time fentanyl Allergy Mild Verified 01/23/19 09:22 nitrofurantoin Allergy Mild OTHER Verified 01/23/19 09:22 Penicillins Allergy Mild Verified 01/23/19 09:22 Home Medications Home Medications Medication Instructions Recorded Confirmed Type albuterol sulfate [Ventolin HFA] 90 mcg INHALATION Q4H PRN 01/23/19 01/23/19 History alprazolam 0.5 mg PO TID PRN 01/23/19 01/23/19 History alum-mag hydroxide-simeth [Mi-Acid] 15 ml PO Q4H PRN 01/23/19 01/23/19 History aspirin 81 mg PO HS 01/23/19 01/23/19 History betamethasone, augmented 1 applic TOPICAL BID 01/23/19 01/23/19 History buspirone 10 mg PO BID 01/23/19 01/23/19 History carboxymethylcellulose-glycern 0.5 drp OPHTHALMIC (EYE) TID 01/23/19 01/23/19 History [Refresh Optive] carisoprodol 350 mg PO TID PRN 01/23/19 01/23/19 History duloxetine 60 mg PO HS 01/23/19 01/23/19 History ergocalciferol (vitamin D2) 50,000 unit PO WK 01/23/19 01/23/19 History [Vitamin D2] ezetimibe 10 mg PO PM 01/23/19 01/23/19 History fluticasone propion-salmeterol 1 inh INHALATION Q12H 01/23/19 01/23/19 History [Advair Diskus] folic acid 1 mg PO QAM 01/23/19 01/23/19 History furosemide 20 mg PO DAILY 01/23/19 01/23/19 History guaifenesin [Mucinex] 600 mg PO BID PRN 01/23/19 01/23/19 History ipratropium-albuterol 0.5 ml INHALATION Q4H PRN 01/23/19 01/23/19 History iron,carbonyl-vitamin C [Vitron-C] 65 tab PO MOWEFR@0900 01/23/19 01/23/19 History isosorbide dinitrate 10 mg PO TID 01/23/19 01/23/19 History ketoconazole 2 % TOPICAL BID PRN 01/23/19 01/23/19 History levothyroxine 112 mcg PO QAM 01/23/19 01/23/19 History metoprolol succinate 25 mg PO QAM 01/23/19 01/23/19 History morphine 30 mg PO Q12H PRN 01/23/19 01/23/19 History nitroglycerin 0.4 mg SUBLINGUAL QAM PRN 01/23/19 01/23/19 History ondansetron HCl 4 mg PO Q6H PRN 01/23/19 01/23/19 History phenazopyridine 200 mg PO TID PRN 01/23/19 01/23/19 History rosuvastatin 40 mg PO HS 01/23/19 01/23/19 History spironolactone 25 mg PO 5XWK 01/23/19 01/23/19 History tiotropium bromide [Spiriva with 18 mcg INHALATION QAM 01/23/19 01/23/19 History HandiHaler] tobramycin 1 drp OPHTHALMIC (EYE) Q4H 01/23/19 01/23/19 History tramadol 50 mg PO Q4H PRN 01/23/19 01/23/19 History warfarin 4 mg PO HS 01/23/19 01/23/19 History white petrolatum-mineral oil 20 inch OPHTHALMIC (EYE) HS 01/23/19 01/23/19 History [Soothe Night Time Lubricant] Patient History Medical History Acute HI COPD (chronic obstructive pulmonary disease) IBS (irritable bowel syndrome) Social History Preferred Language: Yi Communication Ability: Effective 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 Most of the history was obtained from her daughter who was by the bedside. The patient remains full code and at this stage they would like everything to be done including CPR as well as shock and intubation if indicated. The patient is short of breath and when she came she was hypoxemic to 66%. She seems to be somewhat comfortable after she was started on BiPAP and her tachypnea and tachycardia has also improved. A chest x-ray was consistent with pulmonary edema and she was given 60 mg of IV Lasix and now she is passing good urine. Physical Exam Physical Exam: Elderly female lying in the bed on BiPAP not any acute distress breathing with the BiPAP with oxygen saturation of 98% on 100% FiO2. HEENT: Pupils are equally reactive to light. Unable to examine the oral cavity as well as nasal passages because currently she is wearing the BiPAP. Chest: Bilateral air entry with coarse breathing and scattered rhonchi also has expiratory wheeze. She also has bilateral crackles posteriorly. Cardiac: S1-S2 heard, tachycardia, no murmur gallop or rubs appreciated. GI: Abdomen is soft, nontender and bowel sounds are positive. Unable to palpate any mass. Neuro: The patient is currently sleeping but she is arousable and she tries to follow simple commands and she is also moving all extremities. Extremities: There is no clubbing, no edema. Nontender calf muscles. Skin: There is no rash or lesion seen. Psychiatrically: Unable to assess because of her current medical condition and mental status. Results & Data Vital Signs (Past 12 Hours) Vital Signs Temp Pulse Resp BP Pulse Ox 01/23/19 10:30 31 H 97 01/23/19 10:10 112 H 96 01/23/19 10:01 113 H 24 132/85 97 01/23/19 10:00 113 H 98 01/23/19 09:50 94 H 96 01/23/19 09:46 112 H 26 H 140/78 96 01/23/19 09:40 112 H 97 01/23/19 09:32 113 H 97 01/23/19 09:31 103 H 125/81 97 01/23/19 09:30 112 H 97 01/23/19 09:20 116 H 97 01/23/19 09:16 114 H 138/108 H 98 01/23/19 09:10 119 H 97 01/23/19 09:01 115 H 32 H 138/102 H 99 07/24/19 09:00 153 H 98 01/23/19 08:50 116 H 98 01/23/19 08:46 120 H 30 H 140/79 98 01/23/19 08:40 121 H 97 01/23/19 08:38 122 H 30 H 134/73 98 01/23/19 08:34 123 H 96 01/23/19 08:30 96 01/23/19 08:28 36.9 C 126 H 35 H 143/95 H 95 01/23/19 08:25 120 H 34 H 98 Laboratory Results Abnormal lab results 01/23/19 01/23/19 01/23/19 Range/Units 08:39 08:39 08:39 Hct 48.3 H (37-47) % RDW Std Deviation 59.8 H (36.4-46.3) fL RDW Coeff of Adrianna 18.1 H (11.5-14.5) % Immature Gran # (Auto) 0.04 H (0.00-0.02) K/uL [place] # (Auto) 1.86 H (0.11-0.59) K/uL Absolute Nucleated RBC 0.16 H (0-0) K/uL PT 54.8 H (9.0-12.0) Seconds INR 6.1 H* (0.9-1.1) APTT 53.8 H* (21.0-31.0) Seconds VBG pH (7.36-7.41) VBG pCO2 (38-50) mmHg BUN 23 H (7-18) mg/dl Glucose 134 H (70-99) mg/dl Lactate (0.4-2.0) mmol/L Troponin I 0.439 H* (0-0.045) ng/ml NT-Pro-B Natriuret Pep 3988 H (0-1800) pg/ml Total Protein 8.3 H (6.4-8.2) gm/dl Albumin 3.1 L (3.4-5.0) gm/dl Globulin 5.2 H (2.5-4.0) gm/dl Albumin/Globulin Ratio 0.6 L (0.9-2) Urine Appearance (Clear) Ur Specific [place] (1.000-1.030) Urine Protein (Negative) Urine Ketones (Negative) Urine Blood (Negative) Urine RBC (Auto) (0-4) /hpf U Hyaline Cast (Auto) (0-5) /lpf U Epithel Cells (Auto) (0-5) /lpf Granular Casts (0) /lpf 01/23/19 01/23/19 01/23/19 Range/Units 08:39 08:39 09:05 Hct (37-47) % RDW Std Deviation (36.4-46.3) fL RDW Coeff of Adrianna (11.5-14.5) % Immature Gran # (Auto) (0.00-0.02) K/uL [place] # (Auto) (0.11-0.59) K/uL Absolute Nucleated RBC (0-0) K/uL PT (9.0-12.0) Seconds INR (0.9-1.1) APTT (21.0-31.0) Seconds VBG pH 7.28 L (7.36-7.41) VBG pCO2 71 H (38-50) mmHg BUN (7-18) mg/dl Glucose (70-99) mg/dl Lactate 2.7 H* (0.4-2.0) mmol/L Troponin I (0-0.045) ng/ml NT-Pro-B Natriuret Pep (0-1800) pg/ml Total Protein (6.4-8.2) gm/dl Albumin (3.4-5.0) gm/dl Globulin (2.5-4.0) gm/dl Albumin/Globulin Ratio (0.9-2) Urine Appearance Cloudy A (Clear) Ur Specific [place] 1.031 H (1.000-1.030) Urine Protein 3+ H (Negative) Urine Ketones Trace H (Negative) Urine Blood 3+ H (Negative) Urine RBC (Auto) 5-10 H (0-4) /hpf U Hyaline Cast (Auto) >30 H (0-5) /lpf U Epithel Cells (Auto) >30 H (0-5) /lpf Granular Casts >30 H (0) /lpf Diagnostic Findings SINGLE VIEW CHEST CLINICAL HISTORY: Dyspnea. FINDINGS: An AP, portable, upright chest radiograph is compared to study dated 12/10/2017. The examination is degraded by portable technique and patient rotation. The heart is enlarged and there is atherosclerotic calcification of the thoracic aorta. There is pulmonary vascular congestion. Diffuse reticulonodular densities and hazy opacities likely represent interstitial edema. No large pleural effusion or pneumothorax is seen. The skeletal structures are osteopenic. The bony thorax is grossly intact. IMPRESSION: 1. Cardiomegaly with evidence of congestive failure. 2. Diffuse reticulonodular airspace opacities have increased from previous and likely represent a component of interstitial edema. Clinical correlation will be required and radiographic follow-up to resolution is recommended. Electronically signed by: Janes Aguirre M.D. 01/23/2019 9:05 AM PG Care Time/CCT Total # of Minutes Spent Total Time Spent: 55 Total Time Spent with Patient: Total time spent is greater than 50% in coordination of care (as documented) at patient's floor/unit and/or counseling patient: Critical Care Time: Yes Total Critical Care Time: 55 (1) CHF (congestive heart failure) Heart failure type: unspecified
[2019-01-23] MEDS: methylPREDNISolone 80 MG in SYRINGE 0 ML IV SCH ×2 (11:35→18:27)
[2019-01-23] MEDS: ALBUT/IPRATROP 3MG/0.5MG NEB 3 ML VIAL NEB SCH ×2 (11:38→15:30)
[2019-01-23] MEDS ORDERED: ACETAMINOPHEN 325 MG TAB PO PRN (11:40)
[2019-01-23 11:47] LABS: iSTAT Allen Test Pass; iSTAT Arterial Blood Gas HCO3 34 meg/L (19-24); iSTAT Carbon Dioxide 36 mEq/l (24-31); iSTAT FiO2 50 %; iSTAT Hemoglobin 15.3 g/dl (12.0-16.0)
[2019-01-23] MEDS ORDERED: LEVOFLOXACIN/D5W 750 MG/150 ML BAG IV SCH (12:00)
[2019-01-23] MEDS: NICOTINE 21 MG/24 HR TDSY TD SCH (12:25)
--- NOTE | 2019-01-23 12:52 | Emergency Department Note ---
Entered by Pallavi Sanchez acting as a scribe for History of Present Illness General Chief complaint: Respiratory Distress Time Seen by Provider: 01/23/19 08:30 Source: family and EMS Mode of arrival: EMS History of Present Illness Provider complaint: respiratory distress Onset (ago): hour(s) Pain Consistency: + other (episode) Quality: + other (respiratory distress) Associated symptoms: + other (lower extremity edema, diminished lung sounds in bases, abdomen distended and soft) Treatments prior to arrival: other (CPAP) The patient is a 78 year old female who presents to the ED with an episode of respiratory distress that began a few hours ago. Per EMS, the patient was found in respiratory distress this am. Per EMS, the last time she was checked on at [facility] was last night, and she seemed okay at that time. EMS states that the patient is on Coumadin, Lasix, receives 2L of oxygen via nasal cannula and has a history of acute ND, IBS, and COPD. Per EMS, the patient had an O2 sat of 67 when they were called. Per EMS, upon arrival, the patient was in significant distress and was on a 15L non-rebreather mask, with O2 sats in 80s and respiratory rate in mid 30s. EMS notes lower extremity edema that is worse on the right, diminished lung sounds in bases bilaterally, abdomen slightly distended and soft, and blood pressure that has been steady in the 130/70s. Per EMS, no DNR or DNI was obtained. EMS stated that she was given CPAP en route. The patient's daughter states that she would like to avoid intubation at all cost. HPI and ROS is limited secondary to respiratory distress. Home Medications Home Medications Medication Instructions Recorded Confirmed Type albuterol sulfate [Ventolin HFA] 90 mcg INHALATION Q4H PRN 01/23/19 01/23/19 History alprazolam 0.5 mg PO TID PRN 01/23/19 01/23/19 History alum-mag hydroxide-simeth [Mi-Acid] 15 ml PO Q4H PRN 01/23/19 01/23/19 History aspirin 81 mg PO HS 01/23/19 01/23/19 History betamethasone, augmented 1 applic TOPICAL BID 01/23/19 01/23/19 History buspirone 10 mg PO BID 01/23/19 01/23/19 History carboxymethylcellulose-glycern 0.5 drp OPHTHALMIC (EYE) TID 01/23/19 01/23/19 History [Refresh Optive] carisoprodol 350 mg PO TID PRN 01/23/19 01/23/19 History duloxetine 60 mg PO HS 01/23/19 01/23/19 History ergocalciferol (vitamin D2) 50,000 unit PO WK 01/23/19 01/23/19 History [Vitamin D2] ezetimibe 10 mg PO PM 01/23/19 01/23/19 History fluticasone propion-salmeterol 1 inh INHALATION Q12H 01/23/19 01/23/19 History [Advair Diskus] folic acid 1 mg PO QAM 01/23/19 01/23/19 History furosemide 20 mg PO DAILY 01/23/19 01/23/19 History guaifenesin [Mucinex] 600 mg PO BID PRN 01/23/19 01/23/19 History ipratropium-albuterol 0.5 ml INHALATION Q4H PRN 01/23/19 01/23/19 History iron,carbonyl-vitamin C [Vitron-C] 65 tab PO MOWEFR@0900 01/23/19 01/23/19 History isosorbide dinitrate 10 mg PO TID 01/23/19 01/23/19 History ketoconazole 2 % TOPICAL BID PRN 01/23/19 01/23/19 History levothyroxine 112 mcg PO QAM 01/23/19 01/23/19 History metoprolol succinate 25 mg PO QAM 01/23/19 01/23/19 History morphine 30 mg PO Q12H PRN 01/23/19 01/23/19 History nitroglycerin 0.4 mg SUBLINGUAL QAM PRN 01/23/19 01/23/19 History ondansetron HCl 4 mg PO Q6H PRN 01/23/19 01/23/19 History phenazopyridine 200 mg PO TID PRN 01/23/19 01/23/19 History rosuvastatin 40 mg PO HS 01/23/19 01/23/19 History spironolactone 25 mg PO 5XWK 01/23/19 01/23/19 History tiotropium bromide [Spiriva with 18 mcg INHALATION QAM 01/23/19 01/23/19 History HandiHaler] tobramycin 1 drp OPHTHALMIC (EYE) Q4H 01/23/19 01/23/19 History tramadol 50 mg PO Q4H PRN 01/23/19 01/23/19 History warfarin 4 mg PO HS 01/23/19 01/23/19 History white petrolatum-mineral oil 20 inch OPHTHALMIC (EYE) HS 01/23/19 01/23/19 History [Soothe Night Time Lubricant] Allergies Allergy/AdvReac Type Severity Reaction Status Date / Time fentanyl Allergy Mild Verified 01/23/19 09:22 nitrofurantoin Allergy Mild OTHER Verified 01/23/19 09:22 Penicillins Allergy Mild Verified 01/23/19 09:22 Past Med/Surg History Medical History Tobacco use (Chronic) Mood disorder (Chronic) Fibromyalgia (Chronic) CKD (chronic kidney disease), stage III (Chronic) CAD (coronary artery disease) (Chronic) Hypothyroidism (Chronic) Chronic respiratory failure (Chronic) home 2L NC O2 Ischemic cardiomyopathy (Chronic) IBS (irritable bowel syndrome) (Chronic) COPD (chronic obstructive pulmonary disease) (Chronic) Chronic interstitial cystitis (Chronic) Chronic pain (Chronic) Surgical History H/O cystoscopy (Chronic) H/O heart artery stent (Chronic) Family History Other Colorectal cancer Heart disease Social History Preferred Language: Dominican Communication Ability: Effective Slitter Helper Required: Yes Beliefs That Will Affect Care: None Current Living Situation: Personal Care Facility Current Living Situation Comment: [facility] Other Information That Helps Us Care for You: No Feels Safe at Home: Yes Safety Concerns: Feels Safe At This Time Smoking Status: Current every day smoker Tobacco Type: cigarettes Cigarettes Per Day: 10 Hx Alcohol Use: No Hx Substance Use: No Review of Systems See HPI for pertinent positives & negatives. HPI and ROS is limited secondary to respiratory distress. Physical Exam Vital Signs Vital Signs - 24 hr 01/23/19 08:11 01/23/19 08:25 01/23/19 08:28 Temperature 36.9 C Temperature Source Axillary Sepsis Recent Fever Within 48 Hours No Sepsis New/Unexplained Change in Mental Status No Sepsis Action Taken by Nursing No Action Required Pulse Rate 120 H 126 H Pulse Rate [Right Finger] Pulse Rate from SpO2 Sensor Pulse Rhythm Regular Pulse Strength Normal Respiratory Rate 34 H 35 H Respiratory Effort / Characteristics Spontaneous Labored Spontaneous Labored Respiratory Depth Shallow Shallow Respiratory Pattern Tachypnea Tachypnea Tachypnea Blood Pressure 143/95 H Blood Pressure Mean 111 Blood Pressure Position Sitting Pulse Oximetry 98 95 Oxygen Delivery Method BiPAP BiPAP Fraction of Inspired Oxygen 100 01/23/19 08:30 01/23/19 08:34 01/23/19 08:38 Temperature Temperature Source Sepsis Recent Fever Within 48 Hours Sepsis New/Unexplained Change in Mental Status Sepsis Action Taken by Nursing Pulse Rate 123 H 122 H Pulse Rate [Right Finger] Pulse Rate from SpO2 Sensor 123 H 122 H Pulse Rhythm Pulse Strength Respiratory Rate 30 H Respiratory Effort / Characteristics Respiratory Depth Respiratory Pattern Blood Pressure 134/73 Blood Pressure Mean 93 Blood Pressure Position Pulse Oximetry 96 96 98 Oxygen Delivery Method BiPAP Fraction of Inspired Oxygen 01/23/19 08:40 01/23/19 08:46 01/23/19 08:50 Temperature Temperature Source Sepsis Recent Fever Within 48 Hours Sepsis New/Unexplained Change in Mental Status Sepsis Action Taken by Nursing Pulse Rate 121 H 120 H 116 H Pulse Rate [Right Finger] 113 H Pulse Rate from SpO2 Sensor 121 H 120 H 118 H Pulse Rhythm Pulse Strength Respiratory Rate 31 H 30 H Respiratory Effort / Characteristics Short of Breath Respiratory Depth Respiratory Pattern Blood Pressure 140/79 Blood Pressure Mean 99 Blood Pressure Position Pulse Oximetry 96 98 98 Oxygen Delivery Method BiPAP Fraction of Inspired Oxygen 100 01/23/19 09:00 01/23/19 09:01 01/23/19 09:10 Temperature Temperature Source Sepsis Recent Fever Within 48 Hours Sepsis New/Unexplained Change in Mental Status Sepsis Action Taken by Nursing Pulse Rate 153 H 115 H 119 H Pulse Rate [Right Finger] Pulse Rate from SpO2 Sensor 117 H 117 H 120 H Pulse Rhythm Pulse Strength Respiratory Rate 32 H Respiratory Effort / Characteristics Respiratory Depth Respiratory Pattern Blood Pressure 138/102 H Blood Pressure Mean 114 Blood Pressure Position Pulse Oximetry 98 99 97 Oxygen Delivery Method Fraction of Inspired Oxygen 01/23/19 09:16 01/23/19 09:20 01/23/19 09:30 Temperature Temperature Source Sepsis Recent Fever Within 48 Hours Sepsis New/Unexplained Change in Mental Status Sepsis Action Taken by Nursing Pulse Rate 114 H 116 H 112 H Pulse Rate [Right Finger] Pulse Rate from SpO2 Sensor 117 H 116 H 112 H Pulse Rhythm Pulse Strength Respiratory Rate Respiratory Effort / Characteristics Respiratory Depth Respiratory Pattern Blood Pressure 138/108 H Blood Pressure Mean 118 Blood Pressure Position Pulse Oximetry 98 97 97 Oxygen Delivery Method Fraction of Inspired Oxygen 01/23/19 09:31 01/23/19 09:32 01/23/19 09:40 Temperature Temperature Source Sepsis Recent Fever Within 48 Hours Sepsis New/Unexplained Change in Mental Status Sepsis Action Taken by Nursing Pulse Rate 103 H 113 H 112 H Pulse Rate [Right Finger] Pulse Rate from SpO2 Sensor 112 H 114 H 112 H Pulse Rhythm Pulse Strength Respiratory Rate Respiratory Effort / Characteristics Respiratory Depth Respiratory Pattern Blood Pressure 125/81 Blood Pressure Mean 95 Blood Pressure Position Pulse Oximetry 97 97 97 Oxygen Delivery Method Fraction of Inspired Oxygen 01/23/19 09:46 01/23/19 09:50 Temperature Temperature Source Sepsis Recent Fever Within 48 Hours Sepsis New/Unexplained Change in Mental Status Sepsis Action Taken by Nursing Pulse Rate 112 H 94 H Pulse Rate [Right Finger] Pulse Rate from SpO2 Sensor 112 H 111 H Pulse Rhythm Pulse Strength Respiratory Rate 26 H Respiratory Effort / Characteristics Respiratory Depth Respiratory Pattern Blood Pressure 140/78 Blood Pressure Mean 98 Blood Pressure Position Pulse Oximetry 96 96 Oxygen Delivery Method Fraction of Inspired Oxygen GENERAL: Respiratory distress noted. HEENT: No acute trauma, normocephalic atraumatic, mucous membranes moist, no nasal congestion, no scleral icterus. NECK: No stridor, no adenopathy, no meningismus, trachea is midline. LUNGS: Increased respiratory rate, moderate respiratory distress, wheezes and rhonchi bilaterally, diminished breath sounds bilaterally. HEART: Tachycardic with regular rhythm. No murmurs. ABDOMEN: Soft, nontender, bowel sounds positive, no hernias, no peritonitis. EXTREMITIES: No cyanosis, full range of motion of all the joints without pain or difficulty, no signs for acute trauma. NEUROLOGIC: Oriented x 3, no acute motor or sensory deficits, no focal weakness. SKIN: No rash, no jaundice, no diaphoresis. Course 08: Past medical records reviewed. The patient was evaluated in room B1. A complete history and physical exam was performed. 0914: I discussed the patient's case with GILMA Gannon. She will be accepting the patient for Dr. Luz Morrow Hospitalist. He will evaluate the patient for further management. 0918: I discussed the patient's case with ICU attending. He believes the patient should come to the ICU, but does think he needs to see her right now. He will evaluate her when she gets there. 0955: I reevaluated the patient and she is looking better. Intubation will probably be avoidable. Consultations Consultation #1: I discussed the patient's case with GILMA Gannon. She will be accepting the patient for Dr. Luz Morseist. He will evaluate the patient for further management. Time: 09:14 Consultation #2: I discussed the patient's case with ICU attending. He believes the patient should come to the ICU, but does think he needs to see her right now. He will evaluate her when she gets there. Time: 09:18 Administered Medications Albuterol (Duoneb) 3 ml NEB Q4R MIAN Stop: 02/22/19 11:59 Last Admin: 01/23/19 11:38 Dose: 3 ml Documented by: [id number] Methylprednisolone 80 mg/ (Syringe) 1.28 mls @ 1.5 mls/min IV Q8H MIAN Stop: 01/25/19 03:01 Last Admin: 01/23/19 11:35 Dose: 1.5 mls/min Documented by: [id number] Levofloxacin/Dextrose (Levaquin/D5w) 750 mg in 150 mls @ 100 mls/hr IV Q24H MIAN; Protocol Stop: 01/25/19 11:59 Last Infusion: 01/23/19 14:20 Dose: 0 mls/hr Documented by: [id number] Admin: 01/23/19 12:26 Dose: 100 mls/hr Documented by: [id number] Nicotine (Nicoderm Cq) 21 mg TD QAM MIAN Stop: 02/22/19 10:59 Last Admin: 01/23/19 12:25 Dose: 21 mg Documented by: [id number] Discontinued Medications Albuterol (Duoneb) Confirm Administered Dose 3 ml .ROUTE .STK-MED ONE Stop: 01/23/19 08:30 Last Admin: 01/23/19 08:39 Dose: Not Given Documented by: [id number] Albuterol (Duoneb) 3 ml INH NOW STA Stop: 01/23/19 08:31 Last Admin: 01/23/19 08:37 Dose: 3 ml Documented by: [id number] Furosemide (Lasix) 60 mg IV NOW STA Stop: 01/23/19 08:46 Last Admin: 01/23/19 08:49 Dose: 60 mg Documented by: [id number] Miscellaneous () Confirm Administered Dose 1 ea .ROUTE .STK-MED ONE Stop: 01/23/19 08:27 Last Admin: 01/23/19 11:36 Dose: Not Given Documented by: [id number] Nitroglycerin (Nitro-Bid 2%) 2 inch EXT NOW STA Stop: 01/23/19 08:38 Last Admin: 01/23/19 08:40 Dose: 2 inch Documented by: [id number] Nitroglycerin (Nitro-Bid 2%) Confirm Administered Dose 36 inch .ROUTE .STK-MED ONE Stop: 01/23/19 08:40 Last Admin: 01/23/19 08:41 Dose: Not Given Documented by: [id number] Medical Decision Making Differential Diagnosis Differentials include CHF, exacerbation of COPD, pneumonia, ND, anemia, electrolyte imbalance, bronchitis, pneumothorax. Medical Records Attestation: I reviewed the patient's medical records. Home Medications Current Medication List: was personally reviewed by me Laboratory Data Attestation: I reviewed the patient's lab results. Result diagrams: 01/23/19 08:39 01/23/19 08:39 Lab Results 01/23/19 01/23/19 01/23/19 Range/Units 08:39 08:39 08:39 WBC 10.02 (4.8-10.8) K/uL RBC 5.32 (4.2-5.4) M/uL Hgb 16.0 (12.0-16.0) g/dL Hct 48.3 H (37-47) % MCV 90.8 (80-100) fL MCH 30.1 (25-34) pg MCHC 33.1 (32-36) g/dL RDW Std Deviation 59.8 H (36.4-46.3) fL RDW Coeff of Adrianna 18.1 H (11.5-14.5) % Plt Count 210 (130-400) K/uL MPV 9.5 (7.4-10.4) fL Immature Gran % (Auto) 0.4 % Neut % (Auto) 64.4 % Lymph % (Auto) 16.3 % Turner % (Auto) 18.6 % Eos % (Auto) 0.0 % Baso % (Auto) 0.3 % Immature Gran # (Auto) 0.04 H (0.00-0.02) K/uL Neut # (Auto) 6.46 (1.4-6.5) K/uL Lymph # (Auto) 1.63 (1.2-3.4) K/uL Turner # (Auto) 1.86 H (0.11-0.59) K/uL Eos # (Auto) 0.00 (0-0.5) K/uL Baso # (Auto) 0.03 (0-0.2) K/uL Absolute Nucleated RBC 0.16 H (0-0) K/uL Nucleated RBC % (auto) 1.6 % PT 54.8 H (9.0-12.0) Seconds INR 6.1 H* (0.9-1.1) APTT 53.8 H* (21.0-31.0) Seconds PTT Ratio 2.0 VBG pH (7.36-7.41) VBG pCO2 (38-50) mmHg VBG pO2 mmHg VBG HCO3 mmol/L VBG O2 Saturation % VBG Base Excess mEq/L Barometric Pressure mm/Hg Sodium 139 (136-145) mmol/L Potassium 4.4 (3.5-5.1) mmol/L Chloride 100 (98-107) mmol/L Carbon Dioxide 31 (21-32) mmol/L Anion Gap 8.0 (3-11) BUN 23 H (7-18) mg/dl Creatinine 1.15 (0.6-1.2) mg/dl Est Cr Clr Drug Dosing Not Reportable Est GFR ( Amer) 53.5 Est GFR (Non-Af Amer) 46.2 BUN/Creatinine Ratio 19.6 (10-20) Glucose 134 H (70-99) mg/dl Lactate (0.4-2.0) mmol/L Calcium 9.8 (8.5-10.1) mg/dl Magnesium 2.1 (1.8-2.4) mg/dl Total Bilirubin 0.7 (0.2-1) mg/dl AST 28 (15-37) U/L ALT 27 (12-78) U/L Alkaline Phosphatase 102 (45-117) U/L Troponin I 0.439 H* (0-0.045) ng/ml NT-Pro-B Natriuret Pep 3988 H (0-1800) pg/ml Total Protein 8.3 H (6.4-8.2) gm/dl Albumin 3.1 L (3.4-5.0) gm/dl Globulin 5.2 H (2.5-4.0) gm/dl Albumin/Globulin Ratio 0.6 L (0.9-2) Urine Color Urine Appearance (Clear) Urine pH (4.5-7.5) Ur Specific Morven (1.000-1.030) Urine Protein (Negative) Urine Glucose (UA) (Negative) Urine Ketones (Negative) Urine Blood (Negative) Urine Nitrite (Negative) Urine Bilirubin (Negative) Urine Urobilinogen (Negative) Ur Leukocyte Esterase (Negative) Urine WBC (Auto) (0-5) /hpf Urine RBC (Auto) (0-4) /hpf U Hyaline Cast (Auto) (0-5) /lpf U Epithel Cells (Auto) (0-5) /lpf Urine Bacteria (Auto) (Negative) Ur Renal Epithelial Cell Granular Casts (0) /lpf 01/23/19 01/23/19 01/23/19 Range/Units 08:39 08:39 09:05 WBC (4.8-10.8) K/uL RBC (4.2-5.4) M/uL Hgb (12.0-16.0) g/dL Hct (37-47) % MCV (80-100) fL MCH (25-34) pg MCHC (32-36) g/dL RDW Std Deviation (36.4-46.3) fL RDW Coeff of Adrianna (11.5-14.5) % Plt Count (130-400) K/uL MPV (7.4-10.4) fL Immature Gran % (Auto) % Neut % (Auto) % Lymph % (Auto) % Turner % (Auto) % Eos % (Auto) % Baso % (Auto) % Immature Gran # (Auto) (0.00-0.02) K/uL Neut # (Auto) (1.4-6.5) K/uL Lymph # (Auto) (1.2-3.4) K/uL Turner # (Auto) (0.11-0.59) K/uL Eos # (Auto) (0-0.5) K/uL Baso # (Auto) (0-0.2) K/uL Absolute Nucleated RBC (0-0) K/uL Nucleated RBC % (auto) % PT (9.0-12.0) Seconds INR (0.9-1.1) APTT (21.0-31.0) Seconds PTT Ratio VBG pH 7.28 L (7.36-7.41) VBG pCO2 71 H (38-50) mmHg VBG pO2 36 mmHg VBG HCO3 32 mmol/L VBG O2 Saturation 66.9 % VBG Base Excess 2.8 mEq/L Barometric Pressure 732.9 mm/Hg Sodium (136-145) mmol/L Potassium (3.5-5.1) mmol/L Chloride (98-107) mmol/L Carbon Dioxide (21-32) mmol/L Anion Gap (3-11) BUN (7-18) mg/dl Creatinine (0.6-1.2) mg/dl Est Cr Clr Drug Dosing Est GFR ( Amer) Est GFR (Non-Af Amer) BUN/Creatinine Ratio (10-20) Glucose (70-99) mg/dl Lactate 2.7 H* (0.4-2.0) mmol/L Calcium (8.5-10.1) mg/dl Magnesium (1.8-2.4) mg/dl Total Bilirubin (0.2-1) mg/dl AST (15-37) U/L ALT (12-78) U/L Alkaline Phosphatase (45-117) U/L Troponin I (0-0.045) ng/ml NT-Pro-B Natriuret Pep (0-1800) pg/ml Total Protein (6.4-8.2) gm/dl Albumin (3.4-5.0) gm/dl Globulin (2.5-4.0) gm/dl Albumin/Globulin Ratio (0.9-2) Urine Color Dark Yellow Urine Appearance Cloudy A (Clear) Urine pH 5.5 (4.5-7.5) Ur Specific Morven 1.031 H (1.000-1.030) Urine Protein 3+ H (Negative) Urine Glucose (UA) Negative (Negative) Urine Ketones Trace H (Negative) Urine Blood 3+ H (Negative) Urine Nitrite Negative (Negative) Urine Bilirubin Negative (Negative) Urine Urobilinogen Negative (Negative) Ur Leukocyte Esterase Negative (Negative) Urine WBC (Auto) 1-5 (0-5) /hpf Urine RBC (Auto) 5-10 H (0-4) /hpf U Hyaline Cast (Auto) >30 H (0-5) /lpf U Epithel Cells (Auto) >30 H (0-5) /lpf Urine Bacteria (Auto) Negative (Negative) Ur Renal Epithelial Cell Not Reportable Granular Casts >30 H (0) /lpf Imaging Data Radiologist's Impression: Radiology results as stated below per my review and the radiologist's interpretation: SINGLE VIEW CHEST CLINICAL HISTORY: Dyspnea. FINDINGS: An AP, portable, upright chest radiograph is compared to study dated 12/10/2017. The examination is degraded by portable technique and patient rotation. The heart is enlarged and there is atherosclerotic calcification of the thoracic aorta. There is pulmonary vascular congestion. Diffuse reticulonodular densities and hazy opacities likely represent interstitial edema. No large pleural effusion or pneumothorax is seen. The skeletal structures are osteopenic. The bony thorax is grossly intact. IMPRESSION: 1. Cardiomegaly with evidence of congestive failure. 2. Diffuse reticulonodular airspace opacities have increased from previous and likely represent a component of interstitial edema. Clinical correlation will be required and radiographic follow-up to resolution is recommended. Electronically signed by: Janes Aguirre M.D. 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 INR is quite elevated at 6.1, she is over anticoagulated. Renal panel testing does not show any significant electrolyte abnormality or kidney failure. Lactic acid level was somewhat elevated consistent with possible infection versus an elevation from her hypoxia. No concerning liver enzyme elevation. BNP was quite elevated at isamar ost 4000, this is consistent with fluid overload/CHF. Chest film does suggest CHF, no pneumonia or pneumothorax. VBG shows a respiratory acidosis with a pH of 7.28. The CO2 is elevated at 71. No hypoxia. Urinalysis does show some hematuria, no signs of infection. EKG shows a sinus tachycardia, no acute ischemic change. Cardiac troponin is slightly elevated, this could be consistent with cardiac injury or strain or possibly just mismatch given her hypoxia. The patient presents in respiratory distress. She was initially placed on BiPAP and given a DuoNeb. She had already received a dose of IV Solu-Medrol prior to arrival. She was placed on 2 inches of Nitropaste. She was given 60 mg of IV Lasix. A Sanchez catheter was placed to help monitor her urine output. The patient seems to be improving. I do think she is going to be able to avoid intubation. I had a discussion about intubation with the patient and her daughter--intubation would only be acceptable as a last resort. The patient appears to be having a flare of COPD. She is in heart failure. The 2 of these issues have led to her dyspnea. She is, however, making slow improvement and seems much more comfortable than when she first arrived. I spoke to the ICU attending, I spoke with case management, the on-call spitalist has been consulted. Admission is warranted. Impression & Plan Respiratory distress, CHF (congestive heart failure), CO2 retention, Respiratory acidosis, COPD exacerbation Critical Care Time Critical Care Time: Yes Total Critical Care Time: 45 I have personally spent 45 minutes of critical care time in the direct management of this patient. This includes bedside care, interpretation of diagnostic studies, and testing, discussion with consultants, patient, and family members, and other required patient management activities. This 45 minutes is in excess of all separately billable procedures. Discharge Plan Visit Data *Final* Discharge Date/Time: 01/23/19 10:14 Chief Complaint: Respiratory Distress ED Provider: Janes Rao Discharge Problem: Respiratory distress, CHF (congestive heart failure), CO2 retention, Respiratory acidosis, COPD exacerbation Patient Disposition: Admitted As Inpatient Discharge Instructions Interventions: ED Discharge Assessment Last Done: 01/23/19 10:14 The scribe's documentation has been prepared under my direction and personally reviewed by me in its entirety. I confirm that the note above accurately reflects all work, treatment, procedures, and medical decision making performed by me.
[2019-01-23] MEDS ORDERED: PHENAZOPYRIDINE HCL 200 MG TAB PO PRN (17:25)
[2019-01-23] MEDS ORDERED: ONDANSETRON 4 MG TAB PO PRN (17:25)
[2019-01-23] MEDS ORDERED: guaiFENesin 600 MG TABCR PO PRN (17:25)
[2019-01-23] MEDS ORDERED: NITROGLYCERIN SL 0.4 MG/TAB TAB SL PRN (17:25)
[2019-01-23] MEDS ORDERED: ALBUTEROL HFA 8 GM INHALER INH PRN (17:25)
[2019-01-23] MEDS: ALPRAZolam 0.5 MG TABLET PO PRN (18:30)
[2019-01-23] MEDS: FLUTICASONE/SALMETEROL 250/50 (ADVAIR) 14 PUFF/1 INHALER INH SCH (19:33)
[2019-01-23] MEDS: EZETIMIBE 10 MG TABLET PO SCH (19:35)
[2019-01-23] MEDS: ASPIRIN 81 MG ECTAB PO SCH (19:35)
[2019-01-23] MEDS: ROSUVASTATIN CALCIUM 20 MG TAB PO SCH (19:36)
[2019-01-23] MEDS: DULOXETINE HCL 60 MG CAP PO SCH (19:36)
[2019-01-23] MEDS: TOBRAMYCIN SULF 0.3% OP SOLN 5 ML BTL OP SCH ×2 (19:38→23:48)
[2019-01-23] MEDS: BETAMETHASONE DIP AUG 0.05% OINT 15 GM TUBE TOP SCH (19:40)
[2019-01-23] MEDS ORDERED: XOPENEX/ATROVENT 1.25mg/0.5MG NEB COMBO NEB SCH (20:00)
[2019-01-23] MEDS: IPRATROPIUM BROMIDE NEB SOLN 0.02% 2.5 ML VIAL INH SCH ×2 (20:46→23:18)
[2019-01-23] MEDS: LEVALBUTEROL 1.25MG/0.5ML NEB INH SCH ×2 (20:46→23:18)
[2019-01-23] MEDS: ARTIFICIAL TEARS OP SCH (20:56)
[2019-01-23] MEDS ORDERED: MINERAL OIL OP SCH (21:00)
[2019-01-23] MEDS ORDERED: [UNRECOGNIZED DRUG - OTHER] OP SCH (21:00)
[2019-01-23] MEDS ORDERED: WHITE PETROLATUM OP SCH (21:00)
[2019-01-23] MEDS ORDERED: ARTIFICIAL TEARS OP SCH (21:00)
[2019-01-23] MEDS: KETOCONAZOLE 2% CR 15 GM TUBE EXT PRN (21:59)
[2019-01-23] MEDS ORDERED: MoRPHine SULFATE IR 15 MG TAB (IMMEDIATE RELEASE) PO STA (22:07)
[2019-01-24] MEDS: ACETAMINOPHEN 1,000 MG/100 ML VIAL IV PRN (02:06)
[2019-01-24] MEDS: methylPREDNISolone 80 MG in SYRINGE 0 ML IV SCH ×2 (02:07→10:40)
[2019-01-24] MEDS: TOBRAMYCIN SULF 0.3% OP SOLN 5 ML BTL OP SCH ×6 (03:11→23:50)
[2019-01-24] MEDS: LEVALBUTEROL 1.25MG/0.5ML NEB INH SCH ×6 (03:11→23:02)
[2019-01-24] MEDS: IPRATROPIUM BROMIDE NEB SOLN 0.02% 2.5 ML VIAL INH SCH ×6 (03:11→23:02)
[2019-01-24] MEDS: ALPRAZolam 0.5 MG TABLET PO PRN (05:02)
[2019-01-24] MEDS: LEVOTHYROXINE SODIUM 112 MCG TABLET PO SCH (05:03)
[2019-01-24] MEDS: ALUMINUM/MAGNESIUM/SIMETH (MAALOX MAX) 30 ML UDC PO PRN (06:49)
[2019-01-24 07:20] LABS: Hematocrit (blood only) 45.1 % (37-47); Hemoglobin 14.9 g/dL (12.0-16.0); Mean Corpuscular Volume 88.3 fL (80-100); Mean Platelet Volume 9.7 fL (7.4-10.4); Nucleated RBC # (auto) 0.09 K/uL (0-0); Nucleated RBC % (auto) 1.1 %; Platelet Count 178 K/uL (130-400); RDW Coefficient of Variation 17.8 % (11.5-14.5); RDW Standard Deviation 57.5 fL (36.4-46.3); Red Blood Count 5.11 M/uL (4.2-5.4); White Blood Count 8.13 K/uL (4.8-10.8)
[2019-01-24 07:41] LABS: Prothrombin Time 47.1 Seconds (9.0-12.0)
[2019-01-24] MEDS: FOLIC ACID 1 MG TAB PO SCH (07:41)
[2019-01-24] MEDS: NICOTINE 21 MG/24 HR TDSY TD SCH (07:41)
[2019-01-24] MEDS: FLUTICASONE/SALMETEROL 250/50 (ADVAIR) 14 PUFF/1 INHALER INH SCH ×2 (07:42→21:10)
[2019-01-24] MEDS: BETAMETHASONE DIP AUG 0.05% OINT 15 GM TUBE TOP SCH ×2 (07:43→21:14)
[2019-01-24] MEDS: TIOTROPIUM BROMIDE 5 PUFF/90 MCG INH INH SCH (07:45)
[2019-01-24 07:47] LABS: INR 5.2 (0.9-1.1)
[2019-01-24] MEDS: ARTIFICIAL TEARS OP SCH ×3 (07:57→21:10)
[2019-01-24 07:59] LABS: BUN Creatinine Ratio 34.4 (10-20); Calcium 9.9 mg/dl (8.5-10.1); Creatinine Clr Calc Pharmacy 45.6 ml/min; Est GFR (African American) 53.5; Est GFR (Non-African American) 46.2; Potassium 3.5 mmol/L (3.5-5.1)
[2019-01-24] MEDS ORDERED: METOPROLOL SUCC 25MG EXT REL TAB PO SCH (09:00)
--- NOTE | 2019-01-24 09:16 | Cardiology Consultation ---
Date of Consultation January 24, 2019 Assessment & Plan (1) Acute on chronic respiratory failure: (2) Acute decompensated heart failure: (3) Ischemic cardiomyopathy: (4) Tobacco use: (5) COPD exacerbation: (6) Elevated troponin I level: 78-year-old female admitted with acute respiratory failure secondary to exacerbation of COPD and acute decompensated systolic heart failure with pulmonary edema. Elevated troponin secondary to type II injury, demand ischemia in the setting of acute hypoxemic respiratory failure, COPD exacerbation, and acute decompensated systolic heart failure. Respiratory status improved with IV Lasix, steroids, and nebulizer treatments. Will continue Lasix 20 mill grams IV daily. Monitor fluid balance, daily weight, GFR, and electrolytes. Hold warfarin today with supratherapeutic INR. Repeat INR in a.m. Patient anticoagulated due to history of severe ischemic cardiomyopathy with extensive anterior apical expansion. No indication for IV heparin currently in setting of supratherapeutic INR. History of Present Illness Reason for Consultation: Elevated Troponin Requesting Physician: Dr. An Attending Physician: Rosalia An MD History of Present Illness 78-year-old female presented to the emergency department with acute shortness of breath. Hypoxic with oxygen saturation in the 60s on presentation. Patient states she attempted to get up to smoke a cigarette which is her usual routine in the evening. She became short of breath walking down the hallway. She returned to her bed there initially felt better however began to experience worsening shortness of breath and respiratory distress. She was brought to the emergency department treated with IV steroids, antibiotics, and Lasix. Respiratory status improved. Oxygen saturation 95% currently on high flow oxygen nasal cannula. Denies chest pain, palpitations, lightheadedness, dizziness, syncope, or near syncope. Currently patient feeling better. Tolerating a.m. meal. Denies chest pain or cough. Notes occasional orthopnea without paroxysmal nocturnal dyspnea. No lower extremity edema or weight gain. Troponin mildly elevated. ECG without significant changes. Cardiac history: 1. Acute anterior apical ST segment elevation myocardial infarction in January 2006 with PTCA and stenting of the left anterior descending. Patient with extensive anteroapical expansion. 2. Repeat cardiac catheterization in 03/10 demonstrated a RCA occlusion with excellent collateral filling, patent stenting of the LAD and only moderate luminal irregularities of the left circumflex coronary artery. 3. Severe ischemic cardiomyopathy. Patient referred to EP, evaluated by Dr. Suarez on 04/30/2014 who felt that she was not an ideal candidate for ICD therapy; ICD therapy was offered but declined. 4. Moderate mitral insufficiency 5. Hypertension 6. Hyperlipidemia 7. Chronic anemia, iron deficieincy 8. Chronic obstructive pulmonary disease with continued chronic tobacco use. 9. Nocturnal hypoxemia 10. Pulmonary nodules 11. Hypothyroidism 12. Fibromyalgia Allergies Allergy/AdvReac Type Severity Reaction Status Date / Time fentanyl Allergy Mild Verified 01/23/19 09:22 nitrofurantoin Allergy Mild OTHER Verified 01/23/19 09:22 Penicillins Allergy Mild Verified 01/23/19 09:22 Home Medications Home Medications Medication Instructions Recorded Confirmed Type albuterol sulfate [Ventolin HFA] 90 mcg INHALATION Q4H PRN 01/23/19 01/23/19 History alprazolam 0.5 mg PO TID PRN 01/23/19 01/23/19 History alum-mag hydroxide-simeth [Mi-Acid] 15 ml PO Q4H PRN 01/23/19 01/23/19 History aspirin 81 mg PO HS 01/23/19 01/23/19 History betamethasone, augmented 1 applic TOPICAL BID 01/23/19 01/23/19 History buspirone 10 mg PO BID 01/23/19 01/23/19 History carboxymethylcellulose-glycern 0.5 drp OPHTHALMIC (EYE) TID 01/23/19 01/23/19 History [Refresh Optive] carisoprodol 350 mg PO TID PRN 01/23/19 01/23/19 History duloxetine 60 mg PO HS 01/23/19 01/23/19 History ergocalciferol (vitamin D2) 50,000 unit PO WK 01/23/19 01/23/19 History [Vitamin D2] ezetimibe 10 mg PO PM 01/23/19 01/23/19 History fluticasone propion-salmeterol 1 inh INHALATION Q12H 01/23/19 01/23/19 History [Advair Diskus] folic acid 1 mg PO QAM 01/23/19 01/23/19 History furosemide 20 mg PO DAILY 01/23/19 01/23/19 History guaifenesin [Mucinex] 600 mg PO BID PRN 01/23/19 01/23/19 History ipratropium-albuterol 0.5 ml INHALATION Q4H PRN 01/23/19 01/23/19 History iron,carbonyl-vitamin C [Vitron-C] 65 tab PO MOWEFR@0900 01/23/19 01/23/19 History isosorbide dinitrate 10 mg PO TID 01/23/19 01/23/19 History ketoconazole 2 % TOPICAL BID PRN 01/23/19 01/23/19 History levothyroxine 112 mcg PO QAM 01/23/19 01/23/19 History metoprolol succinate 25 mg PO QAM 01/23/19 01/23/19 History morphine 30 mg PO Q12H PRN 01/23/19 01/23/19 History nitroglycerin 0.4 mg SUBLINGUAL QAM PRN 01/23/19 01/23/19 History ondansetron HCl 4 mg PO Q6H PRN 01/23/19 01/23/19 History phenazopyridine 200 mg PO TID PRN 01/23/19 01/23/19 History rosuvastatin 40 mg PO HS 01/23/19 01/23/19 History spironolactone 25 mg PO 5XWK 01/23/19 01/23/19 History tiotropium bromide [Spiriva with 18 mcg INHALATION QAM 01/23/19 01/23/19 History HandiHaler] tobramycin 1 drp OPHTHALMIC (EYE) Q4H 01/23/19 01/23/19 History tramadol 50 mg PO Q4H PRN 01/23/19 01/23/19 History warfarin 4 mg PO HS 01/23/19 01/23/19 History white petrolatum-mineral oil 20 inch OPHTHALMIC (EYE) HS 01/23/19 01/23/19 History [Soothe Night Time Lubricant] Patient History Medical History Tobacco use (Chronic) Mood disorder (Chronic) Fibromyalgia (Chronic) CKD (chronic kidney disease), stage III (Chronic) CAD (coronary artery disease) (Chronic) Hypothyroidism (Chronic) Chronic respiratory failure (Chronic) home 2L NC O2 Ischemic cardiomyopathy (Chronic) IBS (irritable bowel syndrome) (Chronic) COPD (chronic obstructive pulmonary disease) (Chronic) Chronic interstitial cystitis (Chronic) Chronic pain (Chronic) Surgical History H/O cystoscopy (Chronic) H/O heart artery stent (Chronic) Family History Other Colorectal cancer Heart disease Social History Preferred Language: Croatian Communication Ability: Effective 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 Chronically ill. HEENT: Normocephalic. Atraumatic. Conjunctiva pink, no scleral icterus. Neck: No carotid bruits, the carotid upstrokes are brisk. No JVD. No HJR Heart: Regular normal S-1 and S-2 no S-3 or S-4 gallop. No murmurs or rub appreciated. PMI is not displaced. No RV heave. Lungs: + Bilateral rhonchi and expiratory wheezing. Abdomen: Normal bowel sounds. Soft. Nontender. No masses or organomegaly. No abdominal bruits. Extremities: No clubbing, cyanosis, or edema. Pulses: radial=2/4, posterior tibial=2/4. Neuro: Cranial nerves grossly intact. No focal motor deficit. Results & Data Vital Signs (Past 12 Hours) Vital Signs Temp Pulse Pulse Resp BP Pulse Ox 01/24/19 07:38 68 20 95 01/24/19 07:32 104 H 20 95 01/24/19 06:44 36.8 C 113 H 22 126/72 93 01/24/19 03:12 108 H 24 93 01/24/19 03:11 108 H 24 93 01/24/19 02:02 36.6 C 107 H 22 112/61 93 01/23/19 23:22 107 H 22 93 01/23/19 23:18 119 H 28 H 97 01/23/19 23:07 36.6 C 119 H 22 108/55 L 93 01/23/19 22:20 112 H Laboratory Results Laboratory Results - last 24 hr 01/23/19 01/23/19 01/23/19 08:39 08:39 08:39 WBC RBC Hgb POC Hgb Hct POC Hct MCV MCH MCHC RDW Std Deviation RDW Coeff of Adrianna Plt Count MPV Absolute Nucleated RBC Nucleated RBC % (auto) PT 54.8 H INR 6.1 H* APTT 53.8 H* PTT Ratio 2.0 Sample Site POC pH POC pCO2 POC pO2 POC HCO3 POC Total CO2 POC Base Excess ABG pH (Temp Correct) ABG pCO2 (Temp Corrct POC ABG pO2 at Pt Temp Hermann Test O2 Delivery Device POC O2 Rate POC FiO2 IPAP POC Sodium Sodium 139 POC Potassium Potassium 4.4 Chloride 100 Carbon Dioxide 31 Anion Gap 8.0 BUN 23 H Creatinine 1.15 Est Cr Clr Drug Dosing Not Reportable Est GFR ( Amer) 53.5 Est GFR (Non-Af Amer) 46.2 BUN/Creatinine Ratio 19.6 Glucose 134 H Lactate 2.7 H* Calcium 9.8 Magnesium 2.1 Total Bilirubin 0.7 AST 28 ALT 27 Alkaline Phosphatase 102 Troponin I 0.439 H* NT-Pro-B Natriuret Pep 3988 H Total Protein 8.3 H Albumin 3.1 L Globulin 5.2 H Albumin/Globulin Ratio 0.6 L Urine Color Urine Appearance Urine pH Ur Specific [place] Urine Protein Urine Glucose (UA) Urine Ketones Urine Blood Urine Nitrite Urine Bilirubin Urine Urobilinogen Ur Leukocyte Esterase Urine WBC (Auto) Urine RBC (Auto) U Hyaline Cast (Auto) U Epithel Cells (Auto) Urine Bacteria (Auto) Ur Renal Epithelial Cell Granular Casts Nasal Screen MRSA (PCR) 01/23/19 01/23/19 01/23/19 09:05 11:33 13:00 WBC RBC Hgb POC Hgb 15.3 Hct POC Hct 45 MCV MCH MCHC RDW Std Deviation RDW Coeff of Adrianna Plt Count MPV Absolute Nucleated RBC Nucleated RBC % (auto) PT INR APTT PTT Ratio Sample Site R Radial POC pH 7.37 POC pCO2 59 H POC pO2 94 POC HCO3 34 H POC Total CO2 36 H POC Base Excess 8.0 H ABG pH (Temp Correct) 7.375 ABG pCO2 (Temp Corrct 58 H POC ABG pO2 at Pt Temp 91 Hermann Test Pass O2 Delivery Device BIPAP POC O2 Rate 16 POC FiO2 50 IPAP 14 POC Sodium 139 Sodium POC Potassium 3.9 Potassium Chloride Carbon Dioxide Anion Gap BUN Creatinine Est Cr Clr Drug Dosing Est GFR ( Amer) Est GFR (Non-Af Amer) BUN/Creatinine Ratio Glucose Lactate Calcium Magnesium Total Bilirubin AST ALT Alkaline Phosphatase Troponin I NT-Pro-B Natriuret Pep Total Protein Albumin Globulin Albumin/Globulin Ratio Urine Color Dark Yellow Urine Appearance Cloudy A Urine pH 5.5 Ur Specific [place] 1.031 H Urine Protein 3+ H Urine Glucose (UA) Negative Urine Ketones Trace H Urine Blood 3+ H Urine Nitrite Negative Urine Bilirubin Negative Urine Urobilinogen Negative Ur Leukocyte Esterase Negative Urine WBC (Auto) 1-5 Urine RBC (Auto) 5-10 H U Hyaline Cast (Auto) >30 H U Epithel Cells (Auto) >30 H Urine Bacteria (Auto) Negative Ur Renal Epithelial Cell Not Reportable Granular Casts >30 H Nasal Screen MRSA (PCR) Positive A 01/23/19 01/23/19 01/23/19 14:35 14:35 20:36 WBC RBC Hgb POC Hgb Hct POC Hct MCV MCH MCHC RDW Std Deviation RDW Coeff of Adrianna Plt Count MPV Absolute Nucleated RBC Nucleated RBC % (auto) PT INR APTT PTT Ratio Sample Site POC pH POC pCO2 POC pO2 POC HCO3 POC Total CO2 POC Base Excess ABG pH (Temp Correct) ABG pCO2 (Temp Corrct POC ABG pO2 at Pt Temp Hermann Test O2 Delivery Device POC O2 Rate POC FiO2 IPAP POC Sodium Sodium POC Potassium Potassium Chloride Carbon Dioxide Anion Gap BUN Creatinine Est Cr Clr Drug Dosing Est GFR ( Amer) Est GFR (Non-Af Amer) BUN/Creatinine Ratio Glucose Lactate 2.4 H* Calcium Magnesium Total Bilirubin AST ALT Alkaline Phosphatase Troponin I 2.000 H* 2.610 H* NT-Pro-B Natriuret Pep Total Protein Albumin Globulin Albumin/Globulin Ratio Urine Color Urine Appearance Urine pH Ur Specific [place] Urine Protein Urine Glucose (UA) Urine Ketones Urine Blood Urine Nitrite Urine Bilirubin Urine Urobilinogen Ur Leukocyte Esterase Urine WBC (Auto) Urine RBC (Auto) U Hyaline Cast (Auto) U Epithel Cells (Auto) Urine Bacteria (Auto) Ur Renal Epithelial Cell Granular Casts Nasal Screen MRSA (PCR) 01/24/19 01/24/19 01/24/19 07:03 07:03 07:03 WBC 8.13 RBC 5.11 Hgb 14.9 POC Hgb Hct 45.1 POC Hct MCV 88.3 MCH 29.2 MCHC 33.0 RDW Std Deviation 57.5 H RDW Coeff of Adrianna 17.8 H Plt Count 178 MPV 9.7 Absolute Nucleated RBC 0.09 H Nucleated RBC % (auto) 1.1 PT 47.1 H INR 5.2 H APTT PTT Ratio Sample Site POC pH POC pCO2 POC pO2 POC HCO3 POC Total CO2 POC Base Excess ABG pH (Temp Correct) ABG pCO2 (Temp Corrct POC ABG pO2 at Pt Temp Hermann Test O2 Delivery Device POC O2 Rate POC FiO2 IPAP POC Sodium Sodium 139 POC Potassium Potassium 3.5 D Chloride 98 Carbon Dioxide 34 H Anion Gap 7.0 BUN 40 H D Creatinine 1.15 Est Cr Clr Drug Dosing 45.6 Est GFR ( Amer) 53.5 Est GFR (Non-Af Amer) 46.2 BUN/Creatinine Ratio 34.4 H Glucose 155 H Lactate Calcium 9.9 Magnesium Total Bilirubin AST ALT Alkaline Phosphatase Troponin I NT-Pro-B Natriuret Pep Total Protein Albumin Globulin Albumin/Globulin Ratio Urine Color Urine Appearance Urine pH Ur Specific [place] Urine Protein Urine Glucose (UA) Urine Ketones Urine Blood Urine Nitrite Urine Bilirubin Urine Urobilinogen Ur Leukocyte Esterase Urine WBC (Auto) Urine RBC (Auto) U Hyaline Cast (Auto) U Epithel Cells (Auto) Urine Bacteria (Auto) Ur Renal Epithelial Cell Granular Casts Nasal Screen MRSA (PCR) (1) Acute on chronic respiratory failure Respiratory failure complication: hypoxia and hypercapnia Qualified Code(s): J96.21 - Acute and chronic respiratory failure with hypoxia; J96.22 - Acute and chronic respiratory failure with hypercapnia
[2019-01-24] MEDS: FUROSEMIDE 20 MG in SYRINGE 0 ML IV SCH (09:35)
[2019-01-24] MEDS ORDERED: ALBUT/IPRATROP 3MG/0.5MG NEB 3 ML VIAL INH PRN (10:21)
[2019-01-24] MEDS: MoRPHine SULFATE IR 15 MG TAB (IMMEDIATE RELEASE) PO PRN ×2 (10:40→23:50)
--- NOTE | 2019-01-24 12:25 | Hospitalist Progress Note ---
Date of Service January 24, 2019 Assessment & Plan (1) Acute on chronic respiratory failure: PRESENTED WITH ACUTE HYPOXEMIC RESPIRATORY FAILURE: Secondary to decompensated CHF/COPD exacerbation -Hypoxic in the 60s, cyanotic and dyspneic on home 2L this morning. 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 was transferred out of ICU to telemetry unit, Patient's severe bronchospasm/wheeze improved with IV Solu-Medrol Nebulizer treatment with Xopenex continued SPO2 noted to be in 96% on high flow O2, High flow O2 discontinued transition to nasal cannula at present on 3 L O2 (at base on 2 L home O2 continuous) Continue Lasix 20 mg IV daily Antibiotic level Alexandr discontinued as no evidence of pneumonia (2) Acute decompensated heart failure: Acute decompensated heart failure with severe systolic dysfunction EF 20% History of anterior NH in 2005 with severe ischemic cardiomyopathy -Most recent echo from 2015 with severely enlarged left ventricular cavity, akinesis of mid and apical anterior septum and inferior shin, akinesis of the apical lateral and anterior shin. Calculated EF 20 to 25% -Was evaluated by EP service in 2013 and ICD therapy still offered but declined -CXR cardiomegaly and evidence of congestive heart failure. Troponin mildly elevated at 0.439. BNP elevated at 3988 -Given 60mg IV Lasix in ED,-with improvement of respiratory status Appreciate input from cardiology Continue diuresis with 20 mg IV Lasix daily Monitor intake output and daily weights strictly (3) COPD exacerbation: Active smoker but has decreased amount to 10 cigarettes daily Presented with acute hypoxemic respiratory failure with combination of severe systolic CHF/COPD exacerbation -Received BiPAP, IV solu-medrol, neb treatments in ICU -ABG showed improvement of pH from 7.28 to 7.36 since initiation of bipap -Recently established with [facility] pulmonology for COPD. -CT chest with evidence of 9 mm ground glass opacity with six-month follow-up CT scheduled in April 2019 -We will start weaning down IV Solu-Medrol, continue nebulizer treatment Levaquin discontinued as there is no evidence of pneumonia Patient is strongly encouraged to quit smoking (4) CAD (coronary artery disease): H/o anterior NH in 2005 s/p stents -No chest pain or ischemic changes on EKG Patient with decompensated CHF with systolic dysfunction Troponin elevation noted: Secondary to type II NH/demand ischemia in the setting of severe ischemic cardiomyopathy, severe hypoxia, acute respiratory failure Appreciate input from cardiology Patient presented with elevated INR 6, no indication of IV heparin treatment -Continue baby aspirin, Isosordil, statin (5) CKD (chronic kidney disease), stage III: Kidney function at baseline -Continue to monitor with daily BMP (6) Supratherapeutic INR: INR supratherapeutic at 6.1 on admission -Holding anticoagulation, INR improved to 5 today no evidence of active bleeding Continue to hold Coumadin, ordered for daily PT/INR (7) Paroxysmal A-fib: Sinus tachycardia on EKG -Continue Toprol INR elevated (8) Tobacco use: Smoking cessation strongly encouraged (9) Mood disorder: Continue Cymbalta, Buspar, Xanax PRN (10) Fibromyalgia: Continue home MS Contin, muscle relaxer as needed (11) Hypothyroidism: Continue levothyroxine DVT Ppx: Elevated INR Code status: FULL per discussion with patient and family. Only interested in emergent intubation, not on penitentiary mechanical ventilation PCP: Sandra at [facility] Dispo: Patient is a resident at [facility] Ordered for PT OT evaluation Plan to discharge back to [facility] when medically stable Subjective Respiratory status much improved today, Weaned off high flow oxygen, transition to 3 L oxygen via nasal cannula Patient complains of generalized pain, chronic-continue to her fibromyalgia Requesting her pain meds, irritated that her pain meds were kept on hold yesterday Patient is counseled, she presented with severe respiratory failure, all sedatives were tried avoid to allow adequate respiratory Physical Exam Physical Exam: GENERAL: No sign of distress, HEENT: Sclera nonicteric, pink-purple bilateral equal reactive to light extraocular muscle intact Normal oral mucosa, neck: No JVD, no thyromegaly, trachea midline Lungs: Scattered wheeze, improved auscultation from yesterday, trace bilateral rails Cardiovascular: Regular S1 and S2, no murmur or gallop, no JVD, no lower extremity edema Abdomen: Soft, nontender, bowel sounds active, no hepatosplenomegaly Extremities: No rash or deformity, normal joint, Neuro: No focal neurological deficit, no dysarthria, no facial droop Psych: Alert awake oriented x3: Euthymic Skin: No rash LYMPH NODES: No cervical lymphadenopathy Results & Data Vital Signs (Past 12 Hours) Vital Signs Temp Pulse Resp BP Pulse Ox 01/24/19 11:08 105 H 18 50 L 01/24/19 10:24 36.7 C 108 H 19 129/71 92 01/24/19 07:38 68 20 95 01/24/19 07:32 104 H 20 95 01/24/19 06:44 36.8 C 113 H 22 126/72 93 01/24/19 03:12 108 H 24 93 01/24/19 03:11 108 H 24 93 01/24/19 02:02 36.6 C 107 H 22 112/61 93 (1) Acute on chronic respiratory failure Respiratory failure complication: hypoxia and hypercapnia Qualified Code(s): J96.21 - Acute and chronic respiratory failure with hypoxia; J96.22 - Acute and chronic respiratory failure with hypercapnia
[2019-01-24] MEDS: ISOSORBIDE DINITRATE 10 MG TAB PO SCH ×2 (16:49→21:10)
[2019-01-24] MEDS ORDERED: POTASSIUM CHLORIDE 20 MEQ TABCR PO STA (18:24)
[2019-01-24] MEDS: METOPROLOL TARTRATE 25 MG TAB PO SCH (18:48)
[2019-01-24] MEDS: methylPREDNISolone 40 MG in SYRINGE 0 ML IV SCH (18:49)
[2019-01-24] MEDS: DULOXETINE HCL 60 MG CAP PO SCH (21:13)
[2019-01-24] MEDS: EZETIMIBE 10 MG TABLET PO SCH (21:13)
[2019-01-24] MEDS: ASPIRIN 81 MG ECTAB PO SCH (21:13)
[2019-01-24] MEDS: ROSUVASTATIN CALCIUM 20 MG TAB PO SCH (21:13)
[2019-01-25] MEDS: methylPREDNISolone 40 MG in SYRINGE 0 ML IV SCH ×3 (02:22→20:50)
[2019-01-25] MEDS: LEVALBUTEROL 1.25MG/0.5ML NEB INH SCH ×6 (04:10→23:16)
[2019-01-25] MEDS: IPRATROPIUM BROMIDE NEB SOLN 0.02% 2.5 ML VIAL INH SCH ×6 (04:10→23:16)
[2019-01-25] MEDS: TOBRAMYCIN SULF 0.3% OP SOLN 5 ML BTL OP SCH ×7 (05:10→23:40)
[2019-01-25] MEDS: LEVOTHYROXINE SODIUM 112 MCG TABLET PO SCH (06:03)
[2019-01-25 07:27] LABS: Hematocrit (blood only) 46.5 % (37-47); Hemoglobin 15.7 g/dL (12.0-16.0); Mean Corpuscular Hgb Conc 33.8 g/dL (32-36); Mean Corpuscular Volume 89.6 fL (80-100); Mean Platelet Volume 9.8 fL (7.4-10.4); Nucleated RBC # (auto) 0.04 K/uL (0-0); Nucleated RBC % (auto) 0.3 %; Platelet Count 223 K/uL (130-400); RDW Coefficient of Variation 17.9 % (11.5-14.5); RDW Standard Deviation 58.4 fL (36.4-46.3); Red Blood Count 5.19 M/uL (4.2-5.4); White Blood Count 11.82 K/uL (4.8-10.8)
[2019-01-25 07:38] LABS: INR 3.2 (0.9-1.1); Prothrombin Time 30.3 Seconds (9.0-12.0)
[2019-01-25 08:05] LABS: BUN Creatinine Ratio 38.7 (10-20); Calcium 9.7 mg/dl (8.5-10.1); Creatinine Clr Calc Pharmacy 50.3 ml/min; Est GFR (African American) 60.4; Est GFR (Non-African American) 52.1; Magnesium 2.6 mg/dl (1.8-2.4); Potassium 3.8 mmol/L (3.5-5.1)
[2019-01-25] MEDS: MoRPHine SULFATE IR 15 MG TAB (IMMEDIATE RELEASE) PO PRN ×2 (08:25→21:03)
[2019-01-25] MEDS: ALPRAZolam 0.5 MG TABLET PO PRN (08:25)
[2019-01-25] MEDS: TIOTROPIUM BROMIDE 5 PUFF/90 MCG INH INH SCH (08:26)
[2019-01-25] MEDS: FLUTICASONE/SALMETEROL 250/50 (ADVAIR) 14 PUFF/1 INHALER INH SCH ×2 (08:27→20:49)
[2019-01-25] MEDS: FOLIC ACID 1 MG TAB PO SCH (08:27)
[2019-01-25] MEDS: BETAMETHASONE DIP AUG 0.05% OINT 15 GM TUBE TOP SCH ×2 (08:27→21:26)
[2019-01-25] MEDS: SPIRONOLACTONE 25 MG TAB PO SCH (08:27)
[2019-01-25] MEDS: FUROSEMIDE 20 MG in SYRINGE 0 ML IV SCH (08:28)
[2019-01-25] MEDS: ARTIFICIAL TEARS OP SCH ×3 (08:28→20:50)
[2019-01-25] MEDS: ISOSORBIDE DINITRATE 10 MG TAB PO SCH ×3 (08:29→19:51)
[2019-01-25] MEDS: NICOTINE 21 MG/24 HR TDSY TD SCH (08:29)
[2019-01-25] MEDS: METOPROLOL TARTRATE 25 MG TAB PO SCH (08:29)
[2019-01-25] MEDS ORDERED: IRON CARBONYL VITAMIN C PO SCH (09:00)
[2019-01-25] MEDS ORDERED: FUROSEMIDE 20 MG TAB PO SCH (09:00)
[2019-01-25] MEDS ORDERED: LOPERAMIDE HCL 2 MG CAP PO PRN ×2 (09:39→09:46)
--- NOTE | 2019-01-25 12:41 | Cardiology Progress Note ---
Date of Service January 25, 2019 Assessment & Plan (1) Acute on chronic respiratory failure: (2) Acute decompensated heart failure: (3) Ischemic cardiomyopathy: (4) Tobacco use: (5) COPD exacerbation: (6) Elevated troponin I level: 78-year-old female admitted with acute respiratory failure secondary to exacerbation of COPD and acute decompensated systolic heart failure with pulmonary edema. Elevated troponin secondary to type II injury, demand ischemia in the setting of acute hypoxemic respiratory failure, COPD exacerbation, and acute decompensated systolic heart failure. Repeat resting 2D transthoracic echocardiogram demonstrates stable findings with severe ischemic cardiomyopathy. Respiratory status markedly improved this a.m. with diuretic therapy, steroids, and nebulizer treatment. Continue IV Lasix x24 hours with consideration for transition to oral diuretic therapy in the next 24 to 48 hours. Coumadin may be restarted today at reduced dose. Repeat INR in a.m. Monitor daily weight, fluid balance, GFR, and electrolytes. Continue other cardiovascular medications as previously ordered. Subjective Patient seen and examined at the bedside. Respiratory status markedly improved. Fluid balance negative approximately 1300 cc. Lying flat without orthopnea. Denies chest pain or palpitations. Isolated javon of nonsustained ventricular tachycardia recorded last evening at approximately 5:30 PM. No associated symptoms are reported. Urine output not accurately measured due to intermittent incontinence. Weight loss noted. Patient states she does not feel ready for discharge at this time. ECG performed this a.m. stable without ischemic changes. INR trending downward however remains supratherapeutic at 3.2 today. Review of Systems Review of Systems: All systems reviewed & are unremarkable except as noted in HPI & below Physical Exam Physical Exam: General: NAD, AAO x3, well nourished. Chronically ill. HEENT: Normocephalic. Atraumatic. Conjunctiva pink, no scleral icterus. Neck: No carotid bruits, the carotid upstrokes are brisk. No JVD. No HJR Heart: Regular normal S-1 and S-2 no S-3 or S-4 gallop. No murmurs or rub appreciated. PMI is not displaced. No RV heave. Lungs: Scant crackles at the bases bilaterally. No rhonchi or wheeze. Abdomen: Normal bowel sounds. Soft. Nontender. No masses or organomegaly. No abdominal bruits. Extremities: No clubbing, cyanosis, or edema. Pulses: radial=2/4, posterior tibial=2/4. Neuro: Cranial nerves grossly intact. No focal motor deficit. Results & Data Vital Signs (Past 12 Hours) Vital Signs Temp Pulse Resp BP BP Pulse Ox Pulse Ox 01/25/19 11:23 91 01/25/19 11:21 79 16 96 01/25/19 10:58 96/60 L 01/25/19 10:47 36.8 C 84 19 84/42 L 96 01/25/19 07:09 36.6 C 88 19 110/66 98 01/25/19 07:05 87 18 94 01/25/19 04:00 36.6 C 90 24 105/73 94 Pulse Ox Pulse Ox Pulse Ox 01/25/19 11:23 90 91 85 L 01/25/19 11:21 01/25/19 10:58 01/25/19 10:47 01/25/19 07:09 01/25/19 07:05 01/25/19 04:00 (1) Acute on chronic respiratory failure Respiratory failure complication: hypoxia and hypercapnia Qualified Code(s): J96.21 - Acute and chronic respiratory failure with hypoxia; J96.22 - Acute and chronic respiratory failure with hypercapnia
[2019-01-25] MEDS: FERROUS SULFATE 325 MG TAB PO SCH (12:45)
[2019-01-25] MEDS: ASCORBIC ACID 500 MG TAB PO SCH (12:45)
[2019-01-25] MEDS: POTASSIUM CHLORIDE 20 MEQ TABCR PO SCH (12:45)
--- NOTE | 2019-01-25 15:08 | Hospitalist Progress Note ---
Date of Service January 25, 2019 Assessment & Plan (1) Acute on chronic respiratory failure: PRESENTED WITH ACUTE HYPOXEMIC RESPIRATORY FAILURE: Clinically much improved with ongoing diuresis with IV Lasix At present on negative balance, Received IV Solu-Medrol, scheduled nebulizer treatment Off BiPAP, on nasal cannula, requiring higher than her baseline 3 L with desaturation noted with exertion(baseline on 2 L oxygen continuous) Given underlying advanced COPD patient's oxygen saturation should be kept in higher 80slower 90s to prevent CO2 retention Secondary to decompensated CHF/COPD exacerbation -Hypoxic in the 60s, was cyanotic and dyspneic at [facility]. Required BiPAP support/ICU admission -Given Lasix 60 mg IV x1 in ER with adequate diuresis - Respiratory status improved, appreciate input from box fabricator was transferred out of ICU to telemetry unit, Patient's severe bronchospasm/wheeze improved with IV Solu-Medrol Nebulizer treatment with Xopenex continued SPO2 noted to be in 96% on high flow O2, High flow O2 discontinued transition to nasal cannula at present on 3 L O2 ([place] on 2 L home O2 continuous) Continue Lasix 20 mg IV daily Antibiotic discontinued as there was no evidence of pneumonia (2) Acute decompensated heart failure: Acute decompensated heart failure with severe systolic dysfunction EF 20% History of anterior CT in 2006 with severe ischemic cardiomyopathy -Most recent echo from 2016 with severely enlarged left ventricular cavity, akinesis of mid and apical anterior septum and inferior shin, akinesis of the apical lateral and anterior shin. Calculated EF 20 to 25% -Was evaluated by EP service in 2014 and ICD therapy still offered but declined -Echo this admission shows unchanged severe cardiomyopathy with low ejection fraction with normal wall motion abnormality involved akinesis of mid and apical anteroseptal and inferior wall Overall poor prognosis, continue medical management as per cardiology Appreciate input from cardiology Continue diuresis with 20 mg IV Lasix daily Plan to transition to oral Lasix possible tomorrow Monitor intake output and daily weights strictly (3) COPD exacerbation: Active smoker but has decreased amount to 10 cigarettes daily Continues to smokeon 2 L oxygen via nasal cannula continuous, patient reports she takes her oxygen off while smoking Presented with acute hypoxemic respiratory failure with combination of severe systolic CHF/COPD exacerbation-when she stepped outside to smoke -Received BiPAP, IV solu-medrol, neb treatments in ICU -ABG showed improvement of pH from 7.28 to 7.36 since initiation of bipap -Recently established with [facility] pulmonology for COPD. -CT chest with evidence of 9 mm ground glass opacity with six-month follow-up CT scheduled in April 2019-needs close surveillance given history of smoking IV Solu-Medrol continued, will do very slow weaning Levaquin discontinued as there is no evidence of pneumonia Patient is strongly encouraged to quit smoking (4) CAD (coronary artery disease): H/o anterior CT in 2005 s/p stents -No chest pain or ischemic changes on EKG Patient with decompensated CHF with systolic dysfunction Troponin elevation noted: Secondary to type II CT/demand ischemia in the setting of severe ischemic cardiomyopathy, severe hypoxia, acute respiratory failure Appreciate input from cardiology Echo shows chronic severe wall motion changes with, ejection fraction in the low 20s Continue Lasix diuresis On aspirin statin and beta-iqra (5) CKD (chronic kidney disease), stage III: Kidney function at baseline -Continue to monitor with daily BMP (6) Supratherapeutic INR: INR supratherapeutic at 6.1 on admission -Holding anticoagulation, INR improved to 5 -3.5 no evidence of active bleeding Coumadin will be resumed on lower dose, ordered for daily PT/INR (7) Paroxysmal A-fib: Sinus tachycardia on EKG -Continue Toprol INR elevated (8) Tobacco use: Smoking cessation strongly encouraged (9) Mood disorder: Continue Cymbalta, Buspar, Xanax PRN (10) Fibromyalgia: Continue home MS Contin, muscle relaxer as needed (11) Hypothyroidism: Continue levothyroxine DVT Ppx: Elevated INR Code status: FULL per discussion with patient and family. Only interested in emergent intubation, not on assisted mechanical ventilation PCP: Sandra at [facility] Dispo: Patient is a resident at [facility] Ordered for PT OT evaluation Plan to discharge back to [facility] when medically stable Subjective Respiratory status improved, on 3 L oxygen via nasal cannula, noted to have desaturation with minimum activity/movement No cough no chest heaviness or discomfort, Patient's main issue is generalized pain secondary to fibromyalgia No fever or chills Physical Exam Physical Exam: GENERAL: Elderly female, no sign of distress, HEENT: Sclera nonicteric, pink-purple bilateral equal reactive to light extraocular muscle intact Normal oral mucosa, neck: No JVD, no thyromegaly, trachea midline Lungs: Persistent wheeze, bilateral leg Rales auscultation improved since yesterday Cardiovascular: Regular S1 and S2, no murmur or gallop, no JVD, no lower extremity edema Abdomen: Soft, nontender, bowel sounds active, no hepatosplenomegaly Extremities: No rash or deformity, normal joint, Neuro: No focal neurological deficit, no dysarthria, no facial droop Psych: Alert awake oriented x3: Euthymic Skin: No rash LYMPH NODES: No cervical lymphadenopathy Results & Data Vital Signs (Past 12 Hours) Vital Signs Temp Pulse Resp BP BP Pulse Ox Pulse Ox 01/25/19 11:23 91 01/25/19 11:21 79 16 96 01/25/19 10:58 96/60 L 01/25/19 10:47 36.8 C 84 19 84/42 L 96 01/25/19 07:09 36.6 C 88 19 110/66 98 01/25/19 07:05 87 18 94 01/25/19 04:00 36.6 C 90 24 105/73 94 Pulse Ox Pulse Ox Pulse Ox 01/25/19 11:23 90 91 85 L 01/25/19 11:21 01/25/19 10:58 01/25/19 10:47 01/25/19 07:09 01/25/19 07:05 01/25/19 04:00 (1) Acute on chronic respiratory failure Respiratory failure complication: hypoxia and hypercapnia Qualified Code(s): J96.21 - Acute and chronic respiratory failure with hypoxia; J96.22 - Acute and chronic respiratory failure with hypercapnia
[2019-01-25] MEDS: EZETIMIBE 10 MG TABLET PO SCH (20:48)
[2019-01-25] MEDS: ROSUVASTATIN CALCIUM 20 MG TAB PO SCH (20:48)
[2019-01-25] MEDS: ASPIRIN 81 MG ECTAB PO SCH (20:48)
[2019-01-25] MEDS: KETOCONAZOLE 2% CR 15 GM TUBE EXT PRN (20:49)
[2019-01-25] MEDS: DULOXETINE HCL 60 MG CAP PO SCH (20:50)
[2019-01-26] MEDS: IPRATROPIUM BROMIDE NEB SOLN 0.02% 2.5 ML VIAL INH SCH ×7 (03:40→23:00)
[2019-01-26] MEDS: LEVALBUTEROL 1.25MG/0.5ML NEB INH SCH ×7 (03:41→23:00)
[2019-01-26] MEDS: TOBRAMYCIN SULF 0.3% OP SOLN 5 ML BTL OP SCH ×6 (04:00→23:45)
[2019-01-26] MEDS: LEVOTHYROXINE SODIUM 112 MCG TABLET PO SCH (05:27)
[2019-01-26] MEDS: methylPREDNISolone 40 MG in SYRINGE 0 ML IV SCH ×3 (05:28→21:09)
[2019-01-26] MEDS: ACETAMINOPHEN 1,000 MG/100 ML VIAL IV PRN (05:28)
[2019-01-26 06:28] LABS: INR 2.5 (0.9-1.1); Prothrombin Time 24.1 Seconds (9.0-12.0)
[2019-01-26 06:44] LABS: Calcium 9.3 mg/dl (8.5-10.1); Creatinine Clr Calc Pharmacy 55.1 ml/min; Est GFR (African American) 67.4; Est GFR (Non-African American) 58.2; Magnesium 2.4 mg/dl (1.8-2.4); Potassium 4.2 mmol/L (3.5-5.1)
[2019-01-26] MEDS: MoRPHine SULFATE IR 15 MG TAB (IMMEDIATE RELEASE) PO PRN (09:19)
[2019-01-26] MEDS: FLUTICASONE/SALMETEROL 250/50 (ADVAIR) 14 PUFF/1 INHALER INH SCH ×2 (09:20→21:06)
[2019-01-26] MEDS: FUROSEMIDE 20 MG in SYRINGE 0 ML IV SCH (09:20)
[2019-01-26] MEDS: SPIRONOLACTONE 25 MG TAB PO SCH (09:21)
[2019-01-26] MEDS: ISOSORBIDE DINITRATE 10 MG TAB PO SCH ×3 (09:21→20:55)
[2019-01-26] MEDS: FERROUS SULFATE 325 MG TAB PO SCH (09:21)
[2019-01-26] MEDS: ASCORBIC ACID 500 MG TAB PO SCH (09:21)
[2019-01-26] MEDS: KETOCONAZOLE 2% CR 15 GM TUBE EXT PRN (09:21)
[2019-01-26] MEDS: NICOTINE 21 MG/24 HR TDSY TD SCH (09:22)
[2019-01-26] MEDS: BETAMETHASONE DIP AUG 0.05% OINT 15 GM TUBE TOP SCH (09:22)
[2019-01-26] MEDS: TIOTROPIUM BROMIDE 5 PUFF/90 MCG INH INH SCH (09:22)
[2019-01-26] MEDS: METOPROLOL SUCC 25MG EXT REL TAB PO SCH (09:22)
[2019-01-26] MEDS: POTASSIUM CHLORIDE 20 MEQ TABCR PO SCH (09:22)
[2019-01-26] MEDS: FOLIC ACID 1 MG TAB PO SCH (09:22)
[2019-01-26] MEDS: ARTIFICIAL TEARS OP SCH ×3 (09:23→21:07)
--- NOTE | 2019-01-26 11:02 | Cardiology Progress Note ---
Date of Service January 26, 2019 Assessment & Plan (1) Acute on chronic respiratory failure: (2) Acute decompensated heart failure: (3) Ischemic cardiomyopathy: (4) Tobacco use: (5) COPD exacerbation: (6) Elevated troponin I level: 78-year-old female admitted with acute respiratory failure secondary to exacerbation of COPD and acute decompensated systolic heart failure with pulmonary edema. Elevated troponin secondary to type II injury, demand ischemia in the setting of acute hypoxemic respiratory failure, COPD exacerbation, and acute decompensated systolic heart failure. Repeat resting 2D transthoracic echocardiogram demonstrates stable findings with severe ischemic cardiomyopathy. Respiratory status continues gradual improving appears to be exacerbation obstructive lung disease with cardiac demand issues secondary to medical issues Slowly improving now back on beta-iqra and usual cardiac medications. Would continue IV furosemide additional 24-hour along with treatment of underlying pulmonary exacerbation Subjective Patient seen and examined, chart, telemetry, medications reviewed. Continues to complain of loose cough diffuse myalgias. Painful all over. Notes uses multiple pillows at home to for comfort measures with poor sleep last night. Respiratory status approximately same, notes nebulizers do appear to help Physical Exam Constitutional: + ill appearing; no acute distress Eyes: PERRL, conjunctivae normal, anicteric sclerae Neck: trachea midline, no thyromegaly Respiratory: Coarse rhonchi and wheeze present with cough diminished breath sounds diffusely Cardiovascular: Rate/Rhythm: regular rate and regular rhythm Heart Sounds: normal S1 and normal S2; no gallop Extremities: + edema (Trace) Gastrointestinal (Abdomen): normal bowel sounds, soft, nontender, no hepatosplenomegaly Results & Data Vital Signs (Past 12 Hours) Vital Signs Temp Pulse Pulse Resp BP BP Pulse Ox 01/26/19 10:35 36.8 C 93 H 20 143/66 H 92 01/26/19 07:13 36.8 C 77 19 108/74 99 01/26/19 07:04 73 16 93 01/26/19 05:18 36.8 C 85 20 89/47 L 94 01/26/19 03:41 94 H 18 92 01/25/19 23:41 78 01/25/19 23:25 36.7 C 94 H 24 123/79 93 01/25/19 23:18 86 17 94 Laboratory Results Laboratory Results - last 24 hr 01/26/19 01/26/19 05:31 05:31 PT 24.1 H INR 2.5 H Sodium 138 Potassium 4.2 Chloride 95 L Carbon Dioxide 38 H Anion Gap 5.0 BUN 36 H Creatinine 0.95 Est Cr Clr Drug Dosing 55.1 Est GFR ( Amer) 67.4 Est GFR (Non-Af Amer) 58.2 BUN/Creatinine Ratio 38.0 H Glucose 175 H Calcium 9.3 Magnesium 2.4 (1) Acute on chronic respiratory failure Respiratory failure complication: hypoxia and hypercapnia Qualified Code(s): J96.21 - Acute and chronic respiratory failure with hypoxia; J96.22 - Acute and chronic respiratory failure with hypercapnia
[2019-01-26] MEDS ORDERED: WARFARIN SOD 4 MG TAB PO SCH (16:00)
[2019-01-26] MEDS: WARFARIN SOD 2 MG TAB PO SCH (16:46)
[2019-01-26] MEDS: TRAMADOL HCL 50 MG TABLET PO PRN (19:33)
[2019-01-26] MEDS: ASPIRIN 81 MG ECTAB PO SCH (21:08)
[2019-01-26] MEDS: EZETIMIBE 10 MG TABLET PO SCH (21:08)
[2019-01-26] MEDS: ROSUVASTATIN CALCIUM 20 MG TAB PO SCH (21:08)
[2019-01-26] MEDS: DULOXETINE HCL 60 MG CAP PO SCH (21:09)
[2019-01-26] MEDS: CARISOPRODOL 350 MG TABLET PO PRN (21:25)
[2019-01-27] MEDS: MoRPHine SULFATE IR 15 MG TAB (IMMEDIATE RELEASE) PO PRN ×2 (01:55→15:21)
[2019-01-27] MEDS: LEVALBUTEROL 1.25MG/0.5ML NEB INH SCH ×6 (04:20→23:43)
[2019-01-27] MEDS: IPRATROPIUM BROMIDE NEB SOLN 0.02% 2.5 ML VIAL INH SCH ×6 (04:20→23:43)
[2019-01-27] MEDS: TOBRAMYCIN SULF 0.3% OP SOLN 5 ML BTL OP SCH ×6 (05:00→23:14)
[2019-01-27] MEDS: methylPREDNISolone 40 MG in SYRINGE 0 ML IV SCH ×2 (05:39→13:44)
[2019-01-27] MEDS: LEVOTHYROXINE SODIUM 112 MCG TABLET PO SCH (05:39)
[2019-01-27 06:16] LABS: Prothrombin Time 19.6 Seconds (9.0-12.0)
[2019-01-27 06:31] LABS: BUN Creatinine Ratio 38.5 (10-20); Calcium 9.2 mg/dl (8.5-10.1); Creatinine Clr Calc Pharmacy 61.1 ml/min; Est GFR (African American) 77.1; Est GFR (Non-African American) 66.6; Magnesium 2.4 mg/dl (1.8-2.4); Potassium 4.3 mmol/L (3.5-5.1)
[2019-01-27] MEDS: ALPRAZolam 0.5 MG TABLET PO PRN (07:42)
[2019-01-27] MEDS: TRAMADOL HCL 50 MG TABLET PO PRN ×2 (07:42→20:37)
[2019-01-27] MEDS: ASCORBIC ACID 500 MG TAB PO SCH (07:43)
[2019-01-27] MEDS: POTASSIUM CHLORIDE 20 MEQ TABCR PO SCH (07:43)
[2019-01-27] MEDS: SPIRONOLACTONE 25 MG TAB PO SCH (07:43)
[2019-01-27] MEDS: FERROUS SULFATE 325 MG TAB PO SCH (07:44)
[2019-01-27] MEDS: FOLIC ACID 1 MG TAB PO SCH (07:44)
[2019-01-27] MEDS: FUROSEMIDE 20 MG in SYRINGE 0 ML IV SCH (07:44)
[2019-01-27] MEDS: NICOTINE 21 MG/24 HR TDSY TD SCH (07:44)
[2019-01-27] MEDS: METOPROLOL SUCC 25MG EXT REL TAB PO SCH (07:45)
[2019-01-27] MEDS: TIOTROPIUM BROMIDE 5 PUFF/90 MCG INH INH SCH (07:45)
[2019-01-27] MEDS: ARTIFICIAL TEARS OP SCH ×3 (07:46→20:24)
[2019-01-27] MEDS: FLUTICASONE/SALMETEROL 250/50 (ADVAIR) 14 PUFF/1 INHALER INH SCH ×2 (07:46→20:25)
--- NOTE | 2019-01-27 09:53 | Cardiology Progress Note ---
Date of Service January 27, 2019 Assessment & Plan (1) Acute on chronic respiratory failure: (2) Acute decompensated heart failure: (3) Ischemic cardiomyopathy: (4) Tobacco use: (5) COPD exacerbation: (6) Elevated troponin I level: 78-year-old female admitted with acute respiratory failure secondary to exacerbation of COPD and acute decompensated systolic heart failure with pulmonary edema. Elevated troponin secondary to type II injury, demand ischemia in the setting of acute hypoxemic respiratory failure, COPD exacerbation, and acute decompensated systolic heart failure. Repeat resting 2D transthoracic echocardiogram demonstrates stable findings with severe ischemic cardiomyopathy. Respiratory status continues gradual improving appears to be exacerbation obstructive lung disease with cardiac demand issues secondary to medical issues Slowly improving now back on beta-iqra and usual cardiac medications. We will change furosemide to oral continue underlying therapies otherwise with patient demonstrating clinical improvement Subjective Patient sitting up at bedside feels "better" less myalgias this morning. Patient seen and examined, chart, telemetry, medications reviewed. Patient sitting up at bedside this morning. "Feels better "difficulty clearing cough but otherwise breathing easier myalgias better. No tachypalpitations dizziness or lightheadedness. No chest pains. Weight down substantially since admission though not reflected in I's and O's Physical Exam Constitutional: WD/WN, vitals as above no acute distress Eyes: PERRL, conjunctivae normal, anicteric sclerae Neck: trachea midline, no thyromegaly Respiratory: Lung exam reveals diminished breath sounds with few scattered wheezes with better aeration than past examination. Still mild rhonchorous cough on forced cough and expiration Cardiovascular: Rate/Rhythm: regular rate and regular rhythm Heart Sounds: normal S1 and normal S2; no gallop Extremities: + edema (Trace) Gastrointestinal (Abdomen): normal bowel sounds, soft, nontender, no hepatosplenomegaly Musculoskeletal: no cyanosis or clubbing, extremities motor strength 5/5 Results & Data Vital Signs (Past 12 Hours) Vital Signs Temp Pulse Pulse Resp BP Pulse Ox 01/27/19 07:10 65 16 94 01/27/19 07:00 36.9 C 71 19 109/56 L 97 01/27/19 04:20 70 17 95 01/27/19 03:58 36.9 C 75 20 118/57 L 93 01/27/19 01:56 131/82 01/27/19 00:00 81 01/26/19 23:34 36.7 C 95 H 18 108/61 92 01/26/19 23:02 75 16 94 Laboratory Results Laboratory Results - last 24 hr 01/27/19 01/27/19 05:22 05:22 PT 19.6 H INR 2.0 H Sodium 137 Potassium 4.3 Chloride 96 L Carbon Dioxide 36 H Anion Gap 5.0 BUN 33 H Creatinine 0.85 Est Cr Clr Drug Dosing 61.1 Est GFR ( Amer) 77.1 Est GFR (Non-Af Amer) 66.6 BUN/Creatinine Ratio 38.5 H Glucose 152 H Calcium 9.2 Magnesium 2.4 (1) Acute on chronic respiratory failure Respiratory failure complication: hypoxia and hypercapnia Qualified Code(s): J96.21 - Acute and chronic respiratory failure with hypoxia; J96.22 - Acute and chronic respiratory failure with hypercapnia
[2019-01-27] MEDS: ISOSORBIDE DINITRATE 10 MG TAB PO SCH ×3 (11:32→20:27)
[2019-01-27] MEDS: ALUMINUM/MAGNESIUM/SIMETH (MAALOX MAX) 30 ML UDC PO PRN ×2 (11:34→23:14)
[2019-01-27] MEDS: WARFARIN SOD 2 MG TAB PO SCH (15:22)
--- NOTE | 2019-01-27 16:54 | Hospitalist Progress Note ---
Date of Service January 27, 2019 Assessment & Plan (1) Acute on chronic respiratory failure: PRESENTED WITH ACUTE HYPOXEMIC RESPIRATORY FAILURE: Due to combination of acute decompensated CHF with severe systolic dysfunction/COPD exacerbation Respiratory status improved to baseline Volume status improved with ongoing diuresis with IV Lasix-appreciate cardiology input IV Lasix discontinued Patient resumed on outpatient Lasix 20 mg p.o. daily At present on negative balance, Off BiPAP, on nasal cannula, requiring higher than her baseline 3 L with desaturation noted with exertion(baseline on 2 L oxygen continuous) Given underlying advanced COPD patient's oxygen saturation should be kept in higher 80slower 90s to prevent CO2 retention Presentation patient with -Hypoxic in the 60s, was cyanotic and dyspneic [facility] with 2 L oxygen. Required BiPAP support/ICU admission -Given Lasix 60 mg IV x1 in ER with adequate diuresis - Respiratory status improved, appreciate input from watcher automat long goods was transferred out of ICU to telemetry unit, Patient's severe bronchospasm/wheeze improved with IV Solu-Medrol Started to wean down dose, transition to p.o. prednisone 40 mg daily tomorrow Nebulizer treatment with Xopenex continued (2) Acute decompensated heart failure: Acute decompensated heart failure with severe systolic dysfunction EF 20% History of anterior [place] in 2006 with severe ischemic cardiomyopathy -Most recent echo from 2016 with severely enlarged left ventricular cavity, akinesis of mid and apical anterior septum and inferior shin, akinesis of the apical lateral and anterior shin. Calculated EF 20 to 25% -Was evaluated by EP service in 2014 and ICD therapy still offered but declined -Echo this admission shows unchanged severe cardiomyopathy with low ejection fraction with normal wall motion abnormality involved akinesis of mid and apical anteroseptal and inferior wall Overall poor prognosis, continue medical management as per cardiology Appreciate input from cardiology P.o. Lasix 20 mg daily today Monitor intake output and daily weights strictly (3) COPD exacerbation: Active smoker but has decreased amount to 10 cigarettes daily Continues to smokeon 2 L oxygen via nasal cannula continuous, patient reports she takes her oxygen off while smoking Presented with acute hypoxemic respiratory failure with combination of severe systolic CHF/COPD exacerbation-when she stepped outside to smoke -Received BiPAP, IV solu-medrol, neb treatments in ICU -ABG showed improvement of pH from 7.28 to 7.36 since initiation of bipap -Recently established with [facility] pulmonology for COPD. -CT chest with evidence of 9 mm ground glass opacity with six-month follow-up CT scheduled in April 2019-needs close surveillance given history of smoking Start weaning down IV Solu-Medrol Will transition to p.o. prednisone 40 mg daily tomorrow (4) CAD (coronary artery disease): H/o anterior [place] in 2005 s/p stents -No chest pain or ischemic changes on EKG Patient with decompensated CHF with systolic dysfunction Troponin elevation noted: Secondary to type II [place]/demand ischemia in the setting of severe ischemic cardiomyopathy, severe hypoxia, acute respiratory failure Appreciate input from cardiology Echo shows chronic severe wall motion changes with, ejection fraction in the low 20s Adequately diuresed with IV Lasix Transition to 20 mg p.o. Lasix(home dose) On aspirin statin and beta-iqra (5) CKD (chronic kidney disease), stage III: Kidney function at baseline -Continue to monitor with daily BMP (6) Supratherapeutic INR: INR supratherapeutic at 6.1 on admission -Anticoagulation was kept on hold INR improved~2 Coumadin resumed at lower dose, monitor daily PT/INR (7) Paroxysmal A-fib: Sinus tachycardia on EKG -Continue Toprol On Coumadin (8) Tobacco use: Smoking cessation strongly encouraged (9) Mood disorder: Continue Cymbalta, Buspar, Xanax PRN (10) Fibromyalgia: Continue home MS Contin, muscle relaxer as needed (11) Hypothyroidism: Continue levothyroxine DVT Ppx: Coumadin Code status: FULL per discussion with patient and family. Only interested in emergent intubation, not on senior care mechanical ventilation PCP: Sandra at [facility] Dispo: Patient is a resident at [facility] PT OT evaluation appreciated, recommend rehab pt improved markedly clinically repeat PT/OT eval tomorrow pt is interested to return to [facility] , Social service following for discharge planning Subjective breathing much better no cough no chest heaviness continues to feel well Physical Exam Constitutional: WD/WN, vitals as above + ill appearing; no acute distress Eyes: PERRL, conjunctivae normal, anicteric sclerae Neck: trachea midline, no thyromegaly Cardiovascular: Rate/Rhythm: regular rate and regular rhythm Heart Sounds: normal S1 and normal S2; no gallop Extremities: + edema (Trace) Gastrointestinal (Abdomen): normal bowel sounds, soft, nontender, no hepatosplenomegaly Musculoskeletal: no cyanosis or clubbing, extremities motor strength 5/5 Results & Data Vital Signs (Past 12 Hours) Vital Signs Temp Pulse Pulse Resp BP BP Pulse Ox 01/27/19 15:40 81 16 94 01/27/19 15:02 36.6 C 70 19 132/75 96 01/27/19 11:13 69 16 94 01/27/19 10:42 81 01/27/19 10:41 36.8 C 69 18 106/48 L 92 01/27/19 08:00 81 01/27/19 07:10 65 16 94 01/27/19 07:00 36.9 C 71 19 109/56 L 97 (1) Acute on chronic respiratory failure Respiratory failure complication: hypoxia and hypercapnia Qualified Code(s): J96.21 - Acute and chronic respiratory failure with hypoxia; J96.22 - Acute and chronic respiratory failure with hypercapnia
[2019-01-27] MEDS: ASPIRIN 81 MG ECTAB PO SCH (20:27)
[2019-01-27] MEDS: EZETIMIBE 10 MG TABLET PO SCH (20:28)
[2019-01-27] MEDS: DULOXETINE HCL 60 MG CAP PO SCH (20:28)
[2019-01-27] MEDS: ROSUVASTATIN CALCIUM 20 MG TAB PO SCH (20:29)
[2019-01-27] MEDS ORDERED: methylPREDNISolone 40 MG in SYRINGE 0 ML IV SCH (21:00)
[2019-01-27] MEDS: CARISOPRODOL 350 MG TABLET PO PRN (23:20)
[2019-01-28] MEDS: MoRPHine SULFATE IR 15 MG TAB (IMMEDIATE RELEASE) PO PRN (03:39)
[2019-01-28] MEDS: TOBRAMYCIN SULF 0.3% OP SOLN 5 ML BTL OP SCH ×4 (03:40→15:30)
[2019-01-28] MEDS: LEVALBUTEROL 1.25MG/0.5ML NEB INH SCH ×5 (04:24→19:01)
[2019-01-28] MEDS: IPRATROPIUM BROMIDE NEB SOLN 0.02% 2.5 ML VIAL INH SCH ×5 (04:24→19:01)
[2019-01-28] MEDS: LEVOTHYROXINE SODIUM 112 MCG TABLET PO SCH (05:59)
[2019-01-28 06:30] LABS: INR 2.1 (0.9-1.1); Prothrombin Time 20.3 Seconds (9.0-12.0)
[2019-01-28 06:54] LABS: BUN Creatinine Ratio 35.1 (10-20); Calcium 9.3 mg/dl (8.5-10.1); Est GFR (African American) 67.4; Est GFR (Non-African American) 58.2; Magnesium 2.6 mg/dl (1.8-2.4); Potassium 4.8 mmol/L (3.5-5.1)
[2019-01-28] MEDS: ALPRAZolam 0.5 MG TABLET PO PRN (08:44)
[2019-01-28] MEDS: TRAMADOL HCL 50 MG TABLET PO PRN ×2 (08:44→15:29)
[2019-01-28] MEDS: ASCORBIC ACID 500 MG TAB PO SCH (08:46)
[2019-01-28] MEDS: SPIRONOLACTONE 25 MG TAB PO SCH (08:49)
[2019-01-28] MEDS: POTASSIUM CHLORIDE 20 MEQ TABCR PO SCH (08:50)
[2019-01-28] MEDS: FOLIC ACID 1 MG TAB PO SCH (08:50)
[2019-01-28] MEDS: NICOTINE 21 MG/24 HR TDSY TD SCH (08:51)
[2019-01-28] MEDS: FERROUS SULFATE 325 MG TAB PO SCH (08:53)
[2019-01-28] MEDS: FLUTICASONE/SALMETEROL 250/50 (ADVAIR) 14 PUFF/1 INHALER INH SCH (08:54)
[2019-01-28] MEDS: TIOTROPIUM BROMIDE 5 PUFF/90 MCG INH INH SCH (08:54)
[2019-01-28] MEDS: METOPROLOL SUCC 25MG EXT REL TAB PO SCH (08:58)
[2019-01-28] MEDS: ISOSORBIDE DINITRATE 10 MG TAB PO SCH ×2 (08:58→15:31)
[2019-01-28] MEDS: ARTIFICIAL TEARS OP SCH ×2 (08:59→13:17)
[2019-01-28] MEDS ORDERED: predniSONE 20 MG TAB PO SCH (09:00)
[2019-01-28] MEDS ORDERED: FUROSEMIDE 40 MG TAB PO SCH (09:00)
--- NOTE | 2019-01-28 10:27 | Cardiology Progress Note ---
Date of Service January 28, 2019 Assessment & Plan (1) Acute on chronic respiratory failure: (2) Acute decompensated heart failure: (3) Ischemic cardiomyopathy: (4) Tobacco use: (5) COPD exacerbation: (6) Elevated troponin I level: 78-year-old female admitted with acute respiratory failure secondary to exacerbation of COPD and acute decompensated systolic heart failure with pulmonary edema. Elevated troponin secondary to type II injury, demand ischemia in the setting of acute hypoxemic respiratory failure, COPD exacerbation, and acute decompensated systolic heart failure. Repeat resting 2D transthoracic echocardiogram demonstrates stable findings with severe ischemic cardiomyopathy. Respiratory status continues gradual improving appears to be exacerbation obstructive lung disease with cardiac demand issues secondary to medical issues Slowly improving now back on beta-iqra and usual cardiac medications. Will make no changes today continue to treat underlying pulmonary issues treat underlying chronic fibromyalgia Subjective Patient seen and examined, chart reviewed. Slowly getting better but still with rhonchorous cough. No fevers or chills no chest discomfort. Notes chronic myalgia pains and questions whether she is getting her usual medication Physical Exam Constitutional: WD/WN, vitals as above no acute distress Eyes: PERRL, conjunctivae normal, anicteric sclerae Neck: trachea midline, no thyromegaly Respiratory: Auscultation: + diminished lung sounds and + rhonchi (With forced cough) Cardiovascular: Rate/Rhythm: regular rate and regular rhythm Heart Sounds: normal S1 and normal S2; no gallop Extremities: + edema (Trace) Gastrointestinal (Abdomen): normal bowel sounds, soft, nontender, no hepatosplenomegaly Musculoskeletal: no cyanosis or clubbing, extremities motor strength 5/5 Results & Data Vital Signs (Past 12 Hours) Vital Signs Temp Pulse Pulse Resp BP Pulse Ox 01/28/19 07:31 36.6 C 61 17 119/68 91 01/28/19 07:05 86 16 94 01/28/19 04:24 87 16 95 01/28/19 03:13 36.8 C 72 20 131/73 93 01/27/19 23:43 61 18 94 01/27/19 23:28 65 01/27/19 23:03 36.6 C 67 20 112/58 L 95 Laboratory Results Laboratory Results - last 24 hr 01/28/19 01/28/19 05:59 05:59 PT 20.3 H INR 2.1 H Sodium 137 Potassium 4.8 Chloride 95 L Carbon Dioxide 38 H Anion Gap 4.0 BUN 33 H Creatinine 0.95 Est Cr Clr Drug Dosing 54.0 Est GFR ( Amer) 67.4 Est GFR (Non-Af Amer) 58.2 BUN/Creatinine Ratio 35.1 H Glucose 154 H Calcium 9.3 Magnesium 2.6 H (1) Acute on chronic respiratory failure Respiratory failure complication: hypoxia and hypercapnia Qualified Code(s): J96.21 - Acute and chronic respiratory failure with hypoxia; J96.22 - Acute and chronic respiratory failure with hypercapnia
[2019-01-28] MEDS ORDERED: ERGOCALCIFEROL 50,000 UNITS CAP PO SCH (12:00)
[2019-01-28] MEDS: WARFARIN SOD 2 MG TAB PO SCH (15:31)
--- NOTE | 2019-01-28 16:55 | Hospitalist Progress Note ---
Date of Service January 28, 2019 Assessment & Plan (1) Acute on chronic respiratory failure: Resolved respiratory status improved to baseline PRESENTED WITH ACUTE HYPOXEMIC RESPIRATORY FAILURE: Due to combination of acute decompensated CHF with severe systolic dysfunction/COPD exacerbation Respiratory status improved to baseline Volume status improved with ongoing diuresis with IV Lasix-appreciate cardiology input IV Lasix discontinued Lasix dose changed to oral, will be discharged on Lasix 40 mg daily Has been off BiPAP since admission, on nasal cannula, requiring higher than her baseline 3 L with desaturation noted with exertion(baseline on 2 L oxygen continuous) Given underlying advanced COPD patient's oxygen saturation should be kept in higher 80slower 90s to prevent CO2 retention Presentation patient with -Hypoxic in the 60s, was cyanotic and dyspneic at personal usp with 2 L oxygen. Required BiPAP support/ICU admission -Given Lasix 60 mg IV x1 in ER with adequate diuresis - Respiratory status improved, appreciate input from director of architecture was transferred out of ICU to telemetry unit, Patient's severe bronchospasm/wheeze improved with IV Solu-Medrol Started on p.o. prednisone 40 mg daily To be discharged on Medrol Dosepak Patient continues to smoke heavily, possible leading to his COPD exacerbation, decompensated systolic CHF secondary to hypoxia has underlying severe ischemic cardiomegaly Patient counseled repeatedly to quit smoking (2) Acute decompensated heart failure: Volume status improved with diuretics Acute decompensated heart failure with severe systolic dysfunction EF 20% History of anterior CA in 2006 with severe ischemic cardiomyopathy -Most recent echo from 2016 with severely enlarged left ventricular cavity, akinesis of mid and apical anterior septum and inferior shin, akinesis of the apical lateral and anterior shin. Calculated EF 20 to 25% -Was evaluated by EP service in 2014 and ICD therapy still offered but declined -Echo this admission shows unchanged severe cardiomyopathy with low ejection fraction with normal wall motion abnormality involved akinesis of mid and apical anteroseptal and inferior wall Overall poor prognosis, continue medical management as per cardiology Appreciate input from cardiology Will be discharged home with Lasix 40 mg daily, [place] added potassium supplement (3) COPD exacerbation: Active smoker but has decreased amount to 10 cigarettes daily Continues to smokeon 2 L oxygen via nasal cannula continuous, patient reports she takes her oxygen off while smoking Presented with acute hypoxemic respiratory failure with combination of severe systolic CHF/COPD exacerbation-when she stepped outside to smoke -Received BiPAP, IV solu-medrol, neb treatments in ICU -ABG showed improvement of pH from 7.28 to 7.36 since initiation of bipap -Recently established with [facility] pulmonology for COPD. -CT chest with evidence of 9 mm ground glass opacity with six-month follow-up CT scheduled in April 2019-needs close surveillance given history of smoking Start weaning down IV Solu-Medrol On p.o. prednisone 40 mg daily Will be discharged with Medrol Dosepak (4) CAD (coronary artery disease): H/o anterior CA in 2005 s/p stents -No chest pain or ischemic changes on EKG Patient with decompensated CHF with systolic dysfunction Troponin elevation noted: Secondary to type II CA/demand ischemia in the setting of severe ischemic cardiomyopathy, severe hypoxia, acute respiratory failure Appreciate input from cardiology Echo shows chronic severe wall motion changes with, ejection fraction in the low 20s Adequately diuresed with IV Lasix On aspirin statin and beta-iqra (5) CKD (chronic kidney disease), stage III: Kidney function at baseline -Continue to monitor with daily BMP (6) Supratherapeutic INR: INR supratherapeutic at 6.1 on admission -Anticoagulation was kept on hold INR improved~2 Coumadin resumed at lower dose, 2 mg daily (was on 4 mg madiha Patient will need PT/INR check in next 2 days (7) Paroxysmal A-fib: Sinus tachycardia on EKG -Continue Toprol On Coumadin (8) Tobacco use: Smoking cessation strongly encouraged (9) Mood disorder: Continue Cymbalta, Buspar, Xanax PRN (10) Fibromyalgia: Continue home MS Contin, muscle relaxer as needed (11) Hypothyroidism: Continue levothyroxine DVT Ppx: Coumadin Code status: FULL per discussion with patient and family. Only interested in emergent intubation, not on alf mechanical ventilation PCP: Sandra at [facility] Dispo: Patient is a resident at [facility] Patient is independent in her ADLs, ambulating in her hospital room, on 2 L oxygen without any dyspnea on exertion or respiratory distress Patient is stable to return back to the [facility], update given to patient's daughter Dulce over the phone Subjective No complaint of shortness of breath, on 2 L oxygen at baseline Has minimum cough, orthopnea, no fever or chills Stable to return back to the [facility] today Physical Exam Constitutional: WD/WN, vitals as above + ill appearing; no acute distress Eyes: PERRL, conjunctivae normal, anicteric sclerae Neck: trachea midline, no thyromegaly Cardiovascular: Rate/Rhythm: regular rate and regular rhythm Heart Sounds: normal S1 and normal S2; no gallop Extremities: + edema (Trace) Gastrointestinal (Abdomen): normal bowel sounds, soft, nontender, no hep atosplenomegaly Musculoskeletal: no cyanosis or clubbing, extremities motor strength 5/5 Neurologic: PERRL, EOMI, accommodation nl, no face palsy, no dysarthria Psychiatric: A+Ox3, euthymic affect Results & Data Vital Signs (Past 12 Hours) Vital Signs Temp Pulse Pulse Resp BP BP Pulse Ox 01/28/19 16:43 36.6 C 74 18 106/48 L 124/73 92 01/28/19 16:00 66 01/28/19 15:15 36.6 C 74 18 124/73 92 01/28/19 14:56 75 18 95 01/28/19 11:57 36.9 C 83 18 108/62 91 01/28/19 11:21 69 18 94 01/28/19 07:31 36.6 C 61 17 119/68 91 01/28/19 07:05 86 16 94 (1) Acute on chronic respiratory failure Respiratory failure complication: hypoxia and hypercapnia Qualified Code(s): J96.21 - Acute and chronic respiratory failure with hypoxia; J96.22 - Acute and chronic respiratory failure with hypercapnia
--- NOTE | 2019-01-28 16:56 | Discharge Summary ---
Date of Service January 28, 2019 Admission HPI Per Admitting Provider This is a 78-year-old female with a PMH of chronic respiratory failure with hypoxia on 2L [place] O2, COPD, current tobacco use, CAD (s/p stents), severe ischemic cardiomyopathy with EF of 20-25%, CKD 3, paroxysmal A. fib on anticoagulation, fibromyalgia and other medical problems listed below who presents from [facility] with acute respiratory failure. Patient was reportedly found this morning hypoxic in the 60s, cyanotic and dyspneic on home 2 L. Placed on high flow oxygen per EMS and transitioned to BiPAP in the ED with improvement. Patient with oxygen saturation of 96% on BiPAP now with resolution of tachypnea. History of anterior MD in 2005 with severe ischemic cardiomyopathy. Most recent echo from 2015 with severely enlarged left ventricular cavity, akinesis of mid and apical anterior septum and inferior shin, akinesis of the apical lateral and anterior shin. Calculated EF 20 to 25%. Was evaluated by EP service in 2013 but was not felt to be an ideal candidate for ICD therapy. ICD therapy still offered but declined. Follows with Cierra Moreira PA-C and is on Lasix 20mg and spironolactone 25mg daily. Also recently established with [facility] pulmonology for COPD. CT chest with evidence of 9 mm ground glass opacity with six-month follow-up CT scheduled in April 2019. Is on Coumadin for paroxysmal atrial fibrillation. In ED, found initially to be hypertensive at 138/102 with tachypnea of 32. EKG reveals sinus tach with PVCs at 123 bpm. Chest x-ray with cardiomegaly and evidence of congestive heart failure. VBG with pH of 7.28. Lactic elevated 2.7. Troponin mildly elevated at 0.439. BNP elevated at 3988. Clinical status much improved on BiPAP. Also received breathing treatment, IV Lasix 60 mg and nitro paste. ED physician discussed with ICU attending, who will evaluate the patient further in the unit. History primarily obtained by daughter at bedside. Patient is alert and conversing but ROS limited due to patient being on BiPAP. Denies any fever, chills, chest pain. Chronic abdominal pain. Principal Diagnosis ACUTE ON CHRONIC RESPIRATORY FAILURE WITH HYPOXIA/ACUTE CHF WITH SEVERE SYSTOLIC DYSFUNCTION, ISCHEMIC CARDIOMYOPATHY/COPD EXACERBATIONRESOLVED Discharge Data Allergies Allergy/AdvReac Type Severity Reaction Status Date / Time fentanyl Allergy Mild Verified 01/23/19 09:22 nitrofurantoin Allergy Mild OTHER Verified 01/23/19 09:22 Penicillins Allergy Mild Verified 01/23/19 09:22 Consultations 01/23/19 09:30 ED Decision to Admit Stat 01/23/19 10:42 Consult Case Management - Discharge Planning Routine Consult Lamination Machine Operator Routine 01/23/19 18:58 Consult Cardiology Routine Hospital Course (1) Acute on chronic respiratory failure: Resolved respiratory status improved to baseline PRESENTED WITH ACUTE HYPOXEMIC RESPIRATORY FAILURE: Due to combination of acute decompensated CHF with severe systolic dysfunction/COPD exacerbation Respiratory status improved to baseline Volume status improved with ongoing diuresis with IV Lasix-appreciate cardiology input IV Lasix discontinued Lasix dose changed to oral, will be discharged on Lasix 40 mg daily Has been off BiPAP since admission, on nasal cannula, requiring higher than her baseline 3 L with desaturation noted with exertion(baseline on 2 L oxygen continuous) Given underlying advanced COPD patient's oxygen saturation should be kept in higher 80slower 90s to prevent CO2 retention Presentation patient with -Hypoxic in the 60s, was cyanotic and dyspneic at personal [facility] with 2 L oxygen. Required BiPAP support/ICU admission -Given Lasix 60 mg IV x1 in ER with adequate diuresis - Respiratory status improved, appreciate input from client technical support associate was transferred out of ICU to telemetry unit, Patient's severe bronchospasm/wheeze improved with IV Solu-Medrol Started on p.o. prednisone 40 mg daily To be discharged on Medrol Dosepak Patient continues to smoke heavily, possible leading to his COPD exacerbation, decompensated systolic CHF secondary to hypoxia has underlying severe ischemic cardiomegaly Patient counseled repeatedly to quit smoking (2) Acute decompensated heart failure: Volume status improved with diuretics Acute decompensated heart failure with severe systolic dysfunction EF 20% History of anterior MD in 2006 with severe ischemic cardiomyopathy -Most recent echo from 2016 with severely enlarged left ventricular cavity, akinesis of mid and apical anterior septum and inferior shin, akinesis of the apical lateral and anterior shin. Calculated EF 20 to 25% -Was evaluated by EP service in 2013 and ICD therapy still offered but declined -Echo this admission shows unchanged severe cardiomyopathy with low ejection fraction with normal wall motion abnormality involved akinesis of mid and apical anteroseptal and inferior wall Overall poor prognosis, continue medical management as per cardiology Appreciate input from cardiology Will be discharged home with Lasix 40 mg daily, [place] added potassium supplement (3) COPD exacerbation: Active smoker but has decreased amount to 10 cigarettes daily Continues to smokeon 2 L oxygen via nasal cannula continuous, patient reports she takes her oxygen off while smoking Presented with acute hypoxemic respiratory failure with combination of severe systolic CHF/COPD exacerbation-when she stepped outside to smoke -Received BiPAP, IV solu-medrol, neb treatments in ICU -ABG showed improvement of pH from 7.28 to 7.36 since initiation of bipap -Recently established with [facility] pulmonology for COPD. -CT chest with evidence of 9 mm ground glass opacity with six-month follow-up CT scheduled in April 2019-needs close surveillance given history of smoking Start weaning down IV Solu-Medrol On p.o. prednisone 40 mg daily Will be discharged with Medrol Dosepak (4) CAD (coronary artery disease): H/o anterior MD in 2005 s/p stents -No chest pain or ischemic changes on EKG Patient with decompensated CHF with systolic dysfunction Troponin elevation noted: Secondary to type II MD/demand ischemia in the setting of severe ischemic cardiomyopathy, severe hypoxia, acute respiratory failure Appreciate input from cardiology Echo shows chronic severe wall motion changes with, ejection fraction in the low 20s Adequately diuresed with IV Lasix On aspirin statin and beta-iqra (5) CKD (chronic kidney disease), stage III: Kidney function at baseline -Continue to monitor with daily BMP (6) Supratherapeutic INR: INR supratherapeutic at 6.1 on admission -Anticoagulation was kept on hold INR improved~2 Coumadin resumed at lower dose, 2 mg daily (was on 4 mg madiha Patient will need PT/INR check in next 2 days (7) Paroxysmal A-fib: Sinus tachycardia on EKG -Continue Toprol On Coumadin (8) Tobacco use: Smoking cessation strongly encouraged (9) Mood disorder: Continue Cymbalta, Buspar, Xanax PRN (10) Fibromyalgia: Continue home MS Contin, muscle relaxer as needed (11) Hypothyroidism: Continue levothyroxine DVT Ppx: Coumadin Code status: FULL per discussion with patient and family. Only interested in emergent intubation, not on usp mechanical ventilation PCP: Sandra at [facility] Dispo: Patient is a resident at [facility] Patient is independent in her ADLs, ambulating in her hospital room, on 2 L oxygen without any dyspnea on exertion or respiratory distress Patient is stable to return back to the [facility], update given to patient's daughter Dulce over the phone Total Time Total Time Spent Total Time Spent (In Minutes): Proximal 40 minutes Total Time Includes: Examination of the Patient, Discharge Planning and Medication Reconciliation Discharge Plan Discharge Items Patient Disposition: Personal Skilled Nursing Reason For Visit: ACUTE ON CHRONIC RESP FAILURE,CHF,COPD Discharge Diagnosis: ACUTE ON CHRONIC RESPIRATORY FAILURE WITH HYPOXIA/ACUTE CHF WITH SEVERE SYSTOLIC DYSFUNCTION, ISCHEMIC CARDIOMYOPATHY/COPD EXACERBATIONRESOLVED Discharge Goals: Decrease discomfort, Diagnostic testing and Therapeutic intervention Activity: Resume your previous activity Non-emergency contact: Primary Care Provider Call non-emergency contact if: you have any medication questions [facility] - Diet: Heart Healthy Add Provider Instructions: Lasix/furosemide dose increased to 40 mg daily Coumadin dose reduced to 2 mg daily (was on 4 mg daily) PT/INR check in 2 days Complete Medrol Dosepak FOLLOW UP WITH FAMILY PHYSICIAN IN [facility] IN 2-3 DAYS CARDIOLOGY FOLLOW UP WITH CIERRA MOREIRA PA-C IN 3-4 WEEKS NEED TO QUIT SMOKING Call your Primary Care doctor if any of the following symptoms or problems start or get worse: * Shortness of breath or difficulty breathing * Wake up at night short of breath * Chest pain * Cough * Swelling of your hands, feet, or legs * More fatigued or tired with your normal activity * Palpitations - sudden fast heart beats WEIGHT * Weigh yourself every morning after using the bathroom. * Use the same scale. * Wear the same amount of clothing. * Write your weight down on a chart. * Call your Primary Care doctor if you gain more than 2-3 pounds in 1-2 days. MEDICATIONS * Use this discharge instruction sheet for medication instructions. * Take your medications at the time your doctor ordered. * Do not skip a dose of your medicines. * If you miss a dose of medicine, take it as soon as possible, but DO NOT DOUBLE A DOSE. * Read your medicine information when you get home. * Know all of the side effects of your medicine. If in doubt, ask your pharmacist * Call your Primary Care doctor's office if you have any side effects. * Be sure all of your doctors know what medicine and herbs you take (including cold, flu, and herbal medicine). Take the following with you to your follow-up doctor appointments: * Weight Chart * Medication List * List of questions Do not drink excessive alcohol, beer or wine. Prescriptions: New furosemide 40 mg Tablet 40 mg PO QAM 30 Days Qty: 30 RF: 0 potassium chloride [Klor-Con M20] 20 mEq Tablet,Er Particles/Crystals 20 meq PO QAM 30 Days Qty: 30 RF: 0 warfarin [Coumadin] 2 mg Tablet 2 mg PO DAILY 30 Days Qty: 30 RF: 0 methylprednisolone [Medrol (Julian)] 4 mg tablets,dose pack 4 mg PO UD Qty: 21 RF: 0 nicotine 21 mg/24 hr patch 24 hour 1 patch TD DAILY Qty: 28 RF: 3 Continued carisoprodol 350 mg Tablet 350 mg PO TID PRN (Reason: Edema) RF: 0 isosorbide dinitrate 10 mg Tablet 10 mg PO TID RF: 0 ipratropium-albuterol 0.5 mg-3 mg(2.5 mg base)/3 mL Solution For Nebulization 0.5 ml inhalation Q4H PRN (Reason: Shortness Of Breath) RF: 0 phenazopyridine 200 mg Tablet 200 mg PO TID PRN (Reason: Pain) RF: 0 ondansetron HCl 4 mg Tablet 4 mg PO Q6H PRN (Reason: Nausea) RF: 0 aspirin 81 mg Tablet,Delayed Release (Dr/Ec) 81 mg PO HS RF: 0 tramadol 50 mg Tablet 50 mg PO Q4H PRN (Reason: Pain) RF: 0 spironolactone 25 mg Tablet 25 mg PO 5XWK RF: 0 alprazolam 0.5 mg Tablet 0.5 mg PO TID PRN (Reason: Anxiety) RF: 0 morphine 30 mg Tablet 30 mg PO Q12H PRN (Reason: Pain) RF: 0 buspirone 10 mg Tablet 10 mg PO BID RF: 0 nitroglycerin 0.4 mg Tablet, Sublingual 0.4 mg sublingual QAM PRN (Reason: Chest Pain) RF: 0 betamethasone, augmented 0.05 % Ointment 1 applic TOPICAL BID RF: 0 folic acid 1 mg Tablet 1 mg PO QAM RF: 0 metoprolol succinate 25 mg Tablet Extended Release 24 Hr 25 mg PO QAM RF: 0 ergocalciferol (vitamin D2) [Vitamin D2] 50,000 unit Capsule 50,000 unit PO WK RF: 0 alum-mag hydroxide-simeth [Mi-Acid] 200-200-20 mg/5 mL Suspension 15 ml PO Q4H PRN (Reason: dyspepsea) RF: 0 albuterol sulfate [Ventolin HFA] 90 mcg/actuation Hfa Aerosol Inhaler 90 mcg inhalation Q4H PRN (Reason: Shortness Of Breath) RF: 0 ketoconazole 2 % Cream 2 % topical BID PRN (Reason: fungal infection) RF: 0 levothyroxine 112 mcg Tablet 112 mcg PO QAM RF: 0 ezetimibe 10 mg Tablet 10 mg PO PM RF: 0 rosuvastatin 40 mg Tablet 40 mg PO HS RF: 0 Spiriva with HandiHaler 18 mcg Capsule, W/Inhalation Device 18 mcg inhalation QAM RF: 0 duloxetine 60 mg Capsule,Delayed Release(Dr/Ec) 60 mg PO HS RF: 0 Refresh Optive 0.5-0.9 % Drops 0.5 drp ophthalmic (eye) TID RF: 0 Soothe Night Time Lubricant 80-20 % Ointment 20 inch ophthalmic (eye) HS RF: 0 Vitron-C 65 mg iron- 125 mg Tablet,Delayed Release (Dr/Ec) 65 tab PO MOWEFR@0900 RF: 0 guaifenesin [Mucinex] 600 mg Tablet Extended Release 12hr 600 mg PO BID PRN (Reason: Cough) RF: 0 fluticasone propion-salmeterol [Advair Diskus] 250-50 mcg/dose Blister With Device 1 inh INHALATION Q12H RF: 0 tobramycin 0.3 % Drops 1 drp OPHTHALMIC (EYE) Q4H RF: 0 Discontinued warfarin 4 mg Tablet 4 mg PO HS RF: 0 furosemide 20 mg Tablet 20 mg PO DAILY RF: 0 Stand-Alone [facility]: [facility]Other Patient Handouts: Furosemide Oral tablet, Disease Chronic Lung Quit Smoking, Stress Relief Relaxation Discharge Orders: Discharge Order (Routine); Ordered 01/28/19 Ordered By: Rosalia An Admission Data Admit Date/Time: 01/23/19 09:56 Attending Provider: Rosalia An Admit Provider: Rosalia An Primary Care Provider: ARSALAN SO [facility] Other Providers: Rosalia An ; Greyson Horn ; Larry Lai ; Lincoln Nguyen ; Travis Gilbert ; Donnell Goldberg ; Chris Matute ; Cierra Moreira ; Hannah Conte ; Ashley Odonnell Service: Telemetry Other Interventions: Discharge Summary Assessment (RN) Last Done: 01/28/19 16:43
== END 2019-01-28 20:40 | disposition home or self-care (01) | DRG 291 ==
LOC: ED 08:22 → 1E 09:56 → 2E 15:04
DX: I48.0 Paroxysmal atrial fibrillation; J81.0 Acute pulmonary edema; M79.7 Fibromyalgia; J96.21 Acute and chronic respiratory failure with hypoxia; R79.1 Abnormal coagulation profile; E87.2 Acidosis; Z88.5 Allergy status to narcotic agent; Z79.01 Long term (current) use of anticoagulants; I50.21 Acute systolic (congestive) heart failure; I25.2 Old myocardial infarction; E03.9 Hypothyroidism, unspecified; J44.1 Chronic obstructive pulmonary disease with (acute) exacerbation; N18.3 Chronic kidney disease, stage 3 (moderate); Z88.0 Allergy status to penicillin; I25.10 Atherosclerotic heart disease of native coronary artery without angina pectoris; F39 Unspecified mood [affective] disorder; Z88.8 Allergy status to other drugs, medicaments and biological substances; F17.200 Nicotine dependence, unspecified, uncomplicated

== ENCOUNTER 2019-04-30 15:37 | Inpatient (IN) ==
[2019-04-30] MEDS ORDERED: VANCOMYCIN CONSULT ACTIVE PRN (17:24)
[2019-04-30] MEDS ORDERED: VANCOMYCIN HCL 2,250 MG in SODIUM CHLORIDE 0.9% 500 ML IV ONE (17:24)
--- NOTE | 2019-04-30 17:43 | XRay Report ---
XR chest 1V portable CLINICAL HISTORY: Atypical chest pain COMPARISON STUDY: 01/23/2019 FINDINGS: The heart remains enlarged. There is been marked interval improvement in the previously my ntified bilateral reticulonodular shadowing. There is no evidence for lobar consolidation. There are bibasilar opacity statistically atelectatic. There are no pleural effusions. There is no pneumothorax .[ IMPRESSION: 1. Significant interval improvement in the bilateral diffuse reticular nodular airspace opacities 2. Bilateral lower lung zone opacities statistically atelectatic 3. No evidence of pneumothorax Electronically signed by: Santos Rueda M.D. 04/30/2019 5:40 PM
[2019-04-30] MEDS ORDERED: CEFEPIME 2,000 MG in SYRINGE 7.5 ML IV SCH (17:45)
[2019-04-30 18:00] LABS: Basophils # (auto) 0.03 K/uL (0-0.2); Basophils % (auto) 0.4 %; Eosinophils # (auto) 0.23 K/uL (0-0.5); Eosinophils % (auto) 2.9 %; Hematocrit (blood only) 38.9 % (37-47); Hemoglobin 12.9 g/dL (12.0-16.0); Immature Granulocytes # (auto) 0.01 K/uL (0.00-0.02); Immature Granulocytes % (auto) 0.1 %; Lymphocytes # (auto) 1.78 K/uL (1.2-3.4); Lymphocytes % (auto) 22.5 %; Mean Corpuscular Hemoglobin 30.6 pg (25-34); Mean Corpuscular Hgb Conc 33.2 g/dL (32-36); Mean Corpuscular Volume 92.4 fL (80-100); Mean Platelet Volume 8.7 fL (7.4-10.4); Monocytes # (auto) 0.69 K/uL (0.11-0.59); Monocytes % (auto) 8.7 %; Neutrophils # (auto) 5.18 K/uL (1.4-6.5); Neutrophils % (auto) 65.4 %; Platelet Count 266 K/uL (130-400); RDW Standard Deviation 50.8 fL (36.4-46.3); Red Blood Count 4.21 M/uL (4.2-5.4); White Blood Count 7.92 K/uL (4.8-10.8)
[2019-04-30 18:14] LABS: Alanine Aminotransferase 20 U/L (12-78); Albumin Level 3.2 gm/dl (3.4-5.0); Aspartate Aminotransferase 22 U/L (15-37); BUN Creatinine Ratio 18.9 (10-20); Blood Urea Nitrogen 20 mg/dl (7-18); Calcium 9.6 mg/dl (8.5-10.1); Carbon Dioxide 35 mmol/L (21-32); Chloride 98 mmol/L (98-107); Creatinine Clr Calc Pharmacy 49.1 ml/min; Est GFR (African American) 60.4; Est GFR (Non-African American) 52.1; Glucose 95 mg/dl (70-99); Potassium 4.2 mmol/L (3.5-5.1); Sodium 137 mmol/L (136-145)
[2019-04-30 18:18] LABS: Albumin Globulin Ratio 0.7 (0.9-2); Alkaline Phosphatase 89 U/L (45-117); Bilirubin,Total 0.3 mg/dl (0.2-1); Globulin 4.3 gm/dl (2.5-4.0); Total Protein 7.5 gm/dl (6.4-8.2); Troponin I < 0.015 ng/ml (0-0.045)
--- NOTE | 2019-04-30 19:27 | History & Physical Report ---
Date of Service April 30, 2019 Assessment & Plan (1) Cellulitis of right lower extremity: Cellulitis refractory to Levaquin p.o. x4 days plus dalbavancin given on 04/28. She remains afebrile and without chills or other symptoms. She is not septic. Continue vancomycin and cefepime started in the ER. Will consult infectious diseases to help with antibiotic de-escalation. Continue supportive care (2) Hypotension: Looks to be around her baseline blood pressure may be slightly lower. Not on any antihypertensives at this time. We will give some IV fluids overnight. (3) Paroxysmal A-fib: Sinus rhythm on EKG tonight. Continue Coumadin with therapeutic INR. Continue Toprol-XL for rate control per home regimen. (4) CKD (chronic kidney disease), stage III: Chronic, stable and at baseline. Continue to avoid nephrotoxic substances. (5) CAD (coronary artery disease): Chronic, has reported stable angina that is not currently present. Continue medical management with Crestor, Isordil, Zetia, metoprolol, aspirin per home regimen. Notably she is not on an TANNER or arm. Will review this and cardiology outpatient notes. She does have a history of ischemic cardiomyopathy. Continue spinal lactone per home regimen. (6) Hypothyroidism: Normal TSH last month. Continue home dose of Synthroid. (7) Chronic respiratory failure: Continue chronic home oxygen. (8) DVT prophylaxis: Anticoagulated on Coumadin Full code as discussed with patient and her family on admission. Disposition-pending response to antibiotics and infectious disease recommendations. Doris Estevez DO [facility] Hospitalist History of Present Illness Chief Complaint: Persisting right lower extremity cellulitis Primary Care Provider: [facility] 78-year-old female [facility] with right lower extremity cellulitis present for the last 7 days and refractory to Levaquin p.o. and dalbavancin given in the ER 2 days ago. She denies any fevers or chills but does report some pain in her right lower extremity. She otherwise denies any chest pain, shortness of breath, nausea, vomiting, diarrhea, changes in urination or other issues at this time. She has been tolerating food without issue. Allergies Allergy/AdvReac Type Severity Reaction Status Date / Time fentanyl Allergy Mild Unknown Verified 04/30/19 16:40 nitrofurantoin Allergy Mild Unknown Verified 04/30/19 16:40 Penicillins Allergy Mild Unknown Verified 04/30/19 16:40 Home Medications Home Medications Medication Instructions Recorded Confirmed Type Refresh Optive 0.5 drp OPB DAILY@0800,1200,1700 01/23/19 04/30/19 History Soothe Night Time Lubricant 20 inch OPB HS 01/23/19 04/30/19 History Spiriva with HandiHaler 18 mcg INHALATION DAILY@1000 01/23/19 04/30/19 History Vitron-C 65 tab PO DAILY@1200 01/23/19 04/30/19 History albuterol sulfate [Ventolin HFA] 90 mcg INHALATION Q4H PRN 01/23/19 04/30/19 History alprazolam 0.5 mg PO DAILY@1000,2200 PRN 01/23/19 04/30/19 History alum-mag hydroxide-simeth [Mi-Acid] 15 ml PO Q4H PRN 01/23/19 04/30/19 History aspirin 81 mg PO DAILY@1200 01/23/19 04/30/19 History betamethasone, augmented 1 applic TOPICAL DAILY@0800,1700 01/23/19 04/30/19 History carisoprodol 350 mg PO TID PRN 01/23/19 04/30/19 History duloxetine 60 mg PO DAILY@1600 01/23/19 04/30/19 History ergocalciferol (vitamin D2) 50,000 unit PO MO@1200 01/23/19 04/30/19 History [Vitamin D2] ezetimibe 10 mg PO HS 01/23/19 04/30/19 History fluticasone propion-salmeterol 1 inh INHALATION Q12H 01/23/19 04/30/19 History [Advair Diskus] folic acid 1 mg PO DAILY@1200 01/23/19 04/30/19 History guaifenesin [Mucinex] 600 mg PO BID PRN 01/23/19 04/30/19 History ipratropium-albuterol 0.5 ml INHALATION Q4H PRN 01/23/19 04/30/19 History isosorbide dinitrate 10 mg PO DAILY@1000,1600,2200 01/23/19 04/30/19 History ketoconazole 2 % TOPICAL BID PRN 01/23/19 04/30/19 History levothyroxine 112 mcg PO QAM 01/23/19 04/30/19 History metoprolol succinate 25 mg PO DAILY@1200 01/23/19 04/30/19 History nitroglycerin 0.4 mg SUBLINGUAL QAM PRN 01/23/19 04/30/19 History ondansetron HCl 4 mg PO Q6H PRN 01/23/19 04/30/19 History phenazopyridine 200 mg PO TID PRN 01/23/19 04/30/19 History rosuvastatin 40 mg PO HS 01/23/19 04/30/19 History spironolactone 25 mg PO SUMOWEFRSA@1000 01/23/19 04/30/19 History tramadol 50 mg PO Q4H PRN 01/23/19 04/30/19 History buspirone 10 mg PO DAILY@1200 04/27/19 04/30/19 History buspirone 20 mg PO HS 04/27/19 04/30/19 History furosemide 20 mg PO DAILY@1700 04/27/19 04/30/19 History furosemide 40 mg PO DAILY@0800 04/27/19 04/30/19 History levofloxacin 250 mg PO DAILY@0800 04/27/19 04/30/19 History nicotine 1 patch TD QAM 04/27/19 04/30/19 History potassium chloride [Klor-Con M20] 20 meq PO DAILY@0800 04/27/19 04/30/19 History warfarin 4 mg PO DAILY@1700 04/27/19 04/30/19 History buspirone 5 mg PO QAM 04/30/19 04/30/19 History morphine 30 mg PO DAILY@1000,2200 PRN 04/30/19 04/30/19 History tiotropium bromide [Spiriva with 04/30/19 History HandiHaler] Past Med/Surg History Medical History CHF (congestive heart failure) (Chronic) Tobacco use (Chronic) Mood disorder (Chronic) Fibromyalgia (Chronic) CKD (chronic kidney disease), stage III (Chronic) CAD (coronary artery disease) (Chronic) Hypothyroidism (Chronic) Chronic respiratory failure (Chronic) home 2L NC O2 Ischemic cardiomyopathy (Chronic) IBS (irritable bowel syndrome) (Chronic) COPD (chronic obstructive pulmonary disease) (Chronic) Pulmonary edema (Acute) Respiratory acidosis (Acute) Myocardial infarction (Resolved) Chronic interstitial cystitis (Chronic) Chronic pain (Chronic) Surgical History H/O cystoscopy (Chronic) H/O heart artery stent (Chronic) Family History Other Colorectal cancer Heart disease Social History Preferred Language: [place] Communication Ability: Effective Nursing Home Director Required: No Beliefs That Will Affect Care: None marital status: Current Living Situation: Personal Care Facility Current [facility] Situation Comment: [facility] current occupational status: retired Other Information That Helps Us Care for You: No Feels Safe at Home: Yes Safety Concerns: Feels Safe At This Time Smoking Status: Former smoker Tobacco Type: cigarettes ; Cigarettes Per Day: 10 ; Smoking End Date: december ; Hx Alcohol Use: No Hx Substance Use: No Review of Systems Review of Systems: At least 10 systems were reviewed and negative except as indicated in HPI above Physical Exam Physical Exam: CONSTITUTIONAL: WNWD, vitals as above, generally well- appearing EYES: normal conjunctivae, no scleral icterus ENT: mucous membranes were dry RESPIRATORY: clear to auscultation bilaterally, no crackles, rales or wheezes, normal respiratory effort CARDIOVASCULAR: regular rate and rhythm, S1 and 2 heard without murmurs, gallops or rubs, no JVD GASTROINTESTINAL: normal bowel sounds, soft, nontender, nondistended MUSCULOSKELETAL: strength 5/5 throughout, head is normocephalic and atraumatic, moving all extremities equally SKIN: warm and dry, RLE swelling and erythema up to the knee area. 1+ pitting edema. Small closed scab on anterior tibia area. NEUROLOGIC: No facial palsy, CN 2-12 grossly intact, normal cognition,no gross focal deficits. PSYCHIATRIC: alert cooperative and oriented to person, place and time. Results & Data Vital Signs (Past 12 Hours) Vital Signs Temp Pulse Pulse Resp BP BP Pulse Ox 04/30/19 17:56 70 18 92/53 L 97 04/30/19 15:48 36.4 C L 71 18 93/64 L 93 Laboratory Results Short CBC 04/30/19 Range/Units 17:38 WBC 7.92 (4.8-10.8) K/uL Hgb 12.9 (12.0-16.0) g/dL Hct 38.9 (37-47) % Plt Count 266 (130-400) K/uL BMP 04/30/19 17:38 Sodium 137 Potassium 4.2 Chloride 98 Carbon Dioxide 35 H BUN 20 H Creatinine 1.04 Glucose 95 Calcium 9.6 Cardiac Enzymes 04/30/19 Range/Units 17:38 Troponin I < 0.015 (0-0.045) ng/ml Liver Function 04/30/19 Range/Units 17:38 Total Bilirubin 0.3 (0.2-1) mg/dl AST 22 (15-37) U/L ALT 20 (12-78) U/L Alkaline Phosphatase 89 (45-117) U/L Albumin 3.2 L (3.4-5.0) gm/dl Code Status & VTE Plan Code Status full
--- NOTE | 2019-04-30 20:45 | Emergency Department Note ---
General (ED) Blank Date of Service April 30, 2019 I attended to this patient's care in conjunction with Dr. Berkowitz; please see his documentation for pertinent details regarding care. : Cellulitis Qualifiers: Site of cellulitis: extremity Site of cellulitis of extremity: lower extremity Laterality: left Qualified Code(s): L03.116 - Cellulitis of left lower limb
[2019-04-30] MEDS ORDERED: PHENAZOPYRIDINE HCL 200 MG TAB PO PRN (21:09)
[2019-04-30] MEDS ORDERED: ONDANSETRON 4 MG OD TAB PO PRN (21:09)
[2019-04-30] MEDS ORDERED: SODIUM CHLORIDE 0.9% 500 ML IV SCH (21:09)
[2019-04-30] MEDS ORDERED: NITROGLYCERIN SL 0.4 MG/TAB TAB SL PRN (21:09)
[2019-04-30] MEDS ORDERED: CEFEPIME CONSULT ACTIVE STA (21:09)
[2019-04-30] MEDS ORDERED: ROSUVASTATIN CALCIUM 20 MG TAB PO SCH (21:09)
[2019-04-30] MEDS ORDERED: ALBUTEROL HFA 8 GM INHALER INH PRN (21:09)
[2019-04-30] MEDS ORDERED: ALUMINUM/MAGNESIUM SUSP 30 ML UDC PO PRN (21:09)
[2019-04-30] MEDS ORDERED: EZETIMIBE 10 MG TABLET PO SCH (21:09)
[2019-04-30] MEDS ORDERED: CEFEPIME CONSULT ACTIVE PRN (21:31)
--- NOTE | 2019-04-30 21:41 | Pharmacy Report ---
Pharmacy Abx Dose Short Note - Date of Service April 30, 2019 - Assessment & Plan Assessment: 78 yo Female receiving VANC/CEFEPIME-IV for treatment of RLE cellulitis * Day # 1 of antimicrobial therapy. Plan: Vanc-IV: * Estimated pharmacokinetics: Vd~0.7 L/kg, Ke~0.0451 hr-1, T 1/2~15 hrs * LOADING DOSE: VANC 2250mg (~25mg/kg) IV x 1, then * MAINTENANCE DOSE: VANC 1250mg (~14mg/kg) IV q 16 hours. * Goal trough level: ~15 mcg/mL * VANC Trough level ordered @ [facility] prior to 05/02/19 1800 dose Cefepime-IV: target dose 2giv q 12h, ordered 2g IV q24h for est GFR 30- 60mL/min. Pharmacy will continue to follow and will adjust dose/frequency as necessary. Thank you.
[2019-04-30 21:58] LABS: INR 2.4 (0.9-1.1)
--- NOTE | 2019-04-30 22:07 | Emergency Department Note ---
Entered by Jj Valdez acting as a scribe for History of Present Illness General Chief complaint: Infection Stated complaint: RECHECK FOR CELLULITIS Time Seen by Provider: 04/30/19 16:18 Source: patient History of Present Illness Onset (ago): day(s) (few) Location: lower extremity and left Pain Consistency: + constant Maximum Pain Intensity: 2 Quality: + other (cellulitis) Associated symptoms: no fever/chills and no nausea/vomiting The patient is a 78 y/o female w/ PMHx COPD, [place], hypothyroidism, IBS, CKD, CAD, CHF, paroxysmal a-fib who presents to the ED w/ CC of constant cellulitis to her left lower extremity beginning a few days ago. The patient states she was evaluated in the ED last week and given Dalvance. She reports she was told to come back in 48 hours to have a recheck. The patient notes she returned yes terday and was told her cellulitis has not decreased as much as it should, and she should return in 24 hours to have one last evaluation before being admitted to the hospital. She states she returned today for re-evaluation. The patient reports it has gotten slightly better and has receded from the line that was drawn on her leg, but it has not gotten significantly better or worse. She notes she was advised to elevate her left leg, but she has not been because it increases her chronic back pain. The patient states she does not have any other symptoms at this time, including fevers, chills, nausea, and vomiting. Home Medications Home Medications Medication Instructions Recorded Confirmed Type Refresh Optive 0.5 drp OPB DAILY@0800,1200,1700 01/23/19 04/30/19 History Soothe Night Time Lubricant 20 inch OPB HS 01/23/19 04/30/19 History Spiriva with HandiHaler 18 mcg INHALATION DAILY@1000 01/23/19 04/30/19 History Vitron-C 65 tab PO DAILY@1200 01/23/19 04/30/19 History albuterol sulfate [Ventolin HFA] 90 mcg INHALATION Q4H PRN 01/23/19 04/30/19 History alprazolam 0.5 mg PO DAILY@1000,2200 PRN 01/23/19 04/30/19 History alum-mag hydroxide-simeth [Mi-Acid] 15 ml PO Q4H PRN 01/23/19 04/30/19 History aspirin 81 mg PO DAILY@1200 01/23/19 04/30/19 History betamethasone, augmented 1 applic TOPICAL DAILY@0800,1700 01/23/19 04/30/19 History carisoprodol 350 mg PO TID PRN 01/23/19 04/30/19 History duloxetine 60 mg PO DAILY@1600 01/23/19 04/30/19 History ergocalciferol (vitamin D2) 50,000 unit PO MO@1200 01/23/19 04/30/19 History [Vitamin D2] ezetimibe 10 mg PO HS 01/23/19 04/30/19 History fluticasone propion-salmeterol 1 inh INHALATION Q12H 01/23/19 04/30/19 History [Advair Diskus] folic acid 1 mg PO DAILY@1200 01/23/19 04/30/19 History guaifenesin [Mucinex] 600 mg PO BID PRN 01/23/19 04/30/19 History ipratropium-albuterol 0.5 ml INHALATION Q4H PRN 01/23/19 04/30/19 History isosorbide dinitrate 10 mg PO DAILY@1000,1600,2200 01/23/19 04/30/19 History ketoconazole 2 % TOPICAL BID PRN 01/23/19 04/30/19 History levothyroxine 112 mcg PO QAM 01/23/19 04/30/19 History metoprolol succinate 25 mg PO DAILY@1200 01/23/19 04/30/19 History nitroglycerin 0.4 mg SUBLINGUAL QAM PRN 01/23/19 04/30/19 History ondansetron HCl 4 mg PO Q6H PRN 01/23/19 04/30/19 History phenazopyridine 200 mg PO TID PRN 01/23/19 04/30/19 History rosuvastatin 40 mg PO HS 01/23/19 04/30/19 History spironolactone 25 mg PO SUMOWEFRSA@1000 01/23/19 04/30/19 History tramadol 50 mg PO Q4H PRN 01/23/19 04/30/19 History buspirone 10 mg PO DAILY@1200 04/27/19 04/30/19 History buspirone 20 mg PO HS 04/27/19 04/30/19 History furosemide 20 mg PO DAILY@1700 04/27/19 04/30/19 History furosemide 40 mg PO DAILY@0800 04/27/19 04/30/19 History levofloxacin 250 mg PO DAILY@0800 04/27/19 04/30/19 History nicotine 1 patch TD QAM 04/27/19 04/30/19 History potassium chloride [Klor-Con M20] 20 meq PO DAILY@0800 04/27/19 04/30/19 History warfarin 4 mg PO DAILY@1700 04/27/19 04/30/19 History buspirone 5 mg PO QAM 04/30/19 04/30/19 History morphine 30 mg PO DAILY@1000,2200 PRN 04/30/19 04/30/19 History tiotropium bromide [Spiriva with 04/30/19 History HandiHaler] Allergies Allergy/AdvReac Type Severity Reaction Status Date / Time fentanyl Allergy Mild Unknown Verified 04/30/19 16:40 nitrofurantoin Allergy Mild Unknown Verified 04/30/19 16:40 Penicillins Allergy Mild Unknown Verified 04/30/19 16:40 Past Med/Surg History Medical History CHF (congestive heart failure) (Chronic) Tobacco use (Chronic) Mood disorder (Chronic) Fibromyalgia (Chronic) CKD (chronic kidney disease), stage III (Chronic) CAD (coronary artery disease) (Chronic) Hypothyroidism (Chronic) Chronic respiratory failure (Chronic) home 2L NC O2 Ischemic cardiomyopathy (Chronic) IBS (irritable bowel syndrome) (Chronic) COPD (chronic obstructive pulmonary disease) (Chronic) Pulmonary edema (Acute) Respiratory acidosis (Acute) Myocardial infarction (Resolved) Chronic interstitial cystitis (Chronic) Chronic pain (Chronic) Surgical History H/O cystoscopy (Chronic) H/O heart artery stent (Chronic) Family History Other Colorectal cancer Heart disease Social History Preferred Language: Niuean Communication Ability: Effective 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 and A total of 10 systems reviewed and were otherwise negative Physical Exam Vital Signs Vital Signs - 24 hr 04/30/19 15:48 04/30/19 17:56 04/30/19 19:00 Temperature 36.4 C L Temperature Source Oral Sepsis Recent Fever Within 48 Hours No Sepsis New/Unexplained Change in Mental Status No Sepsis Action Taken by Nursing No Action Required Pulse Rate 71 Pulse Rate [Finger] 70 78 Pulse Rhythm [Finger] Regular Respiratory Rate 18 18 18 Respiratory Effort / Characteristics Non-Labored Spontaneous Non-Labored Spontaneous Respiratory Depth Normal Normal Respiratory Pattern Regular Regular Blood Pressure 93/64 L Blood Pressure [Left Arm] 92/53 L 106/68 Blood Pressure Mean 73 Blood Pressure Mean [Left Arm] 66 80 Blood Pressure Position Sitting Pulse Oximetry 93 97 97 Oxygen Delivery Method Room Air Room Air GENERAL: Awake, alert, chronically ill-appearing, in no distress. BMI of 33.4 kg/m^2. HENT: Normocephalic, atraumatic. Oropharynx with dry mucous membranes and oth erwise unremarkable. EYES: Normal conjunctiva. Sclera non-icteric. NECK: Supple. No nuchal rigidity. FROM. No JVD. RESPIRATORY: Diminished breath sounds at the bases bilaterally, otherwise clear. CARDIAC: Regular rate, normal rhythm. Extremities warm and well perfused. Pulses equal. ABDOMEN: Soft, non-distended. No tenderness to palpation. No rebound or guarding. No masses. RECTAL: Deferred. MUSCULOSKELETAL: Chest examination reveals no tenderness. The back is symmetrical on inspection without obvious abnormality. There is no CVA tenderness to palpation. No joint edema. LOWER EXTREMITIES: Calves are non-tender. Erythema, warmth, and edema of the left lower leg extending down to the foot, no crepitus. NEURO: Normal sensorium. No sensory or motor deficits noted. SKIN: No rash or jaundice noted. Course 1621: Past medical records reviewed. The patient was evaluated in room A12B by the resident under my supervision. A complete history and physical exam was performed. 170: Past medical records reviewed. The patient was evaluated in room A12B by me. A complete history and physical exam was performed. The patient is now complaining of chest pain. A complete chest pain work-up with be performed. She is in agreement with the treatment plan and hospitalist evaluation. 1740: The resident discussed the patient's case with Dr. Estevez, [facility] Hospitalist. She states she will call the resident back when the labs are back. 1830: The resident updated Dr. Estevez of the patient's lab. She will evaluate the patient for further management and care. Administered Medications Alprazolam (Xanax) 0.5 mg PO DAILY@1000,2200 PRN PRN Reason: Anxiety Stop: 05/30/19 21:59 Last Admin: 05/01/19 00:23 Dose: 0.5 mg Documented by: [id number] Buspirone HCl (Buspar) 20 mg PO [facility] Stop: 05/30/19 21:08 Last Admin: 05/01/19 00:16 Dose: 20 mg Documented by: [id number] Carisoprodol (Soma) 350 mg PO TID PRN PRN Reason: Muscle Spasm Stop: 05/31/19 00:52 Last Admin: 05/01/19 01:29 Dose: 350 mg Documented by: [id number] Ezetimibe (Zetia) 10 mg PO [facility] Stop: 05/30/19 21:08 Last Admin: 05/01/19 00:14 Dose: 10 mg Documented by: [id number] Isosorbide Dinitrate (Isordil) 10 mg PO DAILY@1000,1600,2200 [facility] Stop: 05/30/19 21:59 Last Admin: 05/01/19 00:16 Dose: 10 mg Documented by: [id number] Miscellaneous (Remove Nicoderm Patch) 1 ea N/A [facility] Stop: 05/31/19 07:58 Last Admin: 04/30/19 22:16 Dose: 1 ea Documented by: [id number] Morphine Sulfate (Ms Contin) 30 mg PO DAILY@1000,2200 PRN PRN Reason: Pain Last Admin: 05/01/19 01:29 Dose: 30 mg Documented by: [id number] Rosuvastatin Calcium (Crestor) 40 mg PO HS [facility]AN Stop: 05/30/19 21:08 Last Admin: 05/01/19 00:14 Dose: 40 mg Documented by: [id number] Fluticasone/Salmeterol (Advair Diskus 250/50) 1 puffs INH Q12 [facility] Stop: 05/30/19 21:08 Last Admin: 05/01/19 00:12 Dose: 1 puffs Documented by: [id number] Tramadol HCl (Ultram) 50 mg PO Q4H PRN PRN Reason: Pain Stop: 05/30/19 21:08 Last Admin: 05/01/19 00:23 Dose: 50 mg Documented by: [id number] Discontinued Medications Vancomycin HCl 2,250 mg/ (Sodium Chloride) 545 mls @ 200 mls/hr IV NOW ONE Stop: 04/30/19 20:07 Last Infusion: 04/30/19 21:03 Dose: 0 mls/hr Documented by: [id number] Admin: 04/30/19 18:16 Dose: 200 mls/hr Documented by: [id number] Cefepime HCl 2,000 mg/ Syringe 20 mls @ 5.5 mls/min IV Q12H MIAN; Protocol Stop: 05/10/19 17:44 Last Admin: 04/30/19 18:15 Dose: 5.5 mls/min Documented by: [id number] Sodium Chloride (Nss) 500 mls @ 125 mls/hr IV .Q4H [facility]AN Stop: 05/01/19 01:08 Last Admin: 05/01/19 02:53 Dose: 125 mls/hr Documented by: [id number] Miscellaneous Information (Cefepime Consult Active) 1 ea N/A NOW STA Stop: 04/30/19 21:10 Last Admin: 05/01/19 03:17 Dose: Not Given Documented by: [id number] Medical Decision Making Differential Diagnosis Differential diagnosis includes etiologies such as cellulitis, abscess, MRSA infection, DVT, necrotizing fasciitis, dermatitis, drug eruption, as well as others were entertained. Medical Records Attestation: I reviewed the patient's medical records. Home Medications Current Medication List: was personally reviewed by me Laboratory Data Attestation: I reviewed the patient's lab results. Result diagrams: 05/01/19 01:01 05/01/19 01:01 Lab Results 04/30/19 04/30/19 Range/Units 17:38 17:38 WBC 7.92 (4.8-10.8) K/uL RBC 4.21 (4.2-5.4) M/uL Hgb 12.9 (12.0-16.0) g/dL Hct 38.9 (37-47) % MCV 92.4 (80-100) fL MCH 30.6 (25-34) pg MCHC 33.2 (32-36) g/dL RDW Std Deviation 50.8 H (36.4-46.3) fL RDW Coeff of Adrianna 15.0 H (11.5-14.5) % Plt Count 266 (130-400) K/uL MPV 8.7 (7.4-10.4) fL Immature Gran % (Auto) 0.1 % Neut % (Auto) 65.4 % Lymph % (Auto) 22.5 % Calvert % (Auto) 8.7 % Eos % (Auto) 2.9 % Baso % (Auto) 0.4 % Immature Gran # (Auto) 0.01 (0.00-0.02) K/uL Neut # (Auto) 5.18 (1.4-6.5) K/uL Lymph # (Auto) 1.78 (1.2-3.4) K/uL Calvert # (Auto) 0.69 H (0.11-0.59) K/uL Eos # (Auto) 0.23 (0-0.5) K/uL Baso # (Auto) 0.03 (0-0.2) K/uL Sodium 137 (136-145) mmol/L Potassium 4.2 (3.5-5.1) mmol/L Chloride 98 (98-107) mmol/L Carbon Dioxide 35 H (21-32) mmol/L Anion Gap 4.0 (3-11) BUN 20 H (7-18) mg/dl Creatinine 1.04 (0.6-1.2) mg/dl Est Cr Clr Drug Dosing 49.1 ml/min Est GFR ( Amer) 60.4 Est GFR (Non-Af Amer) 52.1 BUN/Creatinine Ratio 18.9 (10-20) Glucose 95 (70-99) mg/dl Calcium 9.6 (8.5-10.1) mg/dl Total Bilirubin 0.3 (0.2-1) mg/dl AST 22 (15-37) U/L ALT 20 (12-78) U/L Alkaline Phosphatase 89 (45-117) U/L Troponin I < 0.015 (0-0.045) ng/ml Total Protein 7.5 (6.4-8.2) gm/dl Albumin 3.2 L (3.4-5.0) gm/dl Globulin 4.3 H (2.5-4.0) gm/dl Albumin/Globulin Ratio 0.7 L (0.9-2) Imaging Data Radiologist's Impression: Radiology results as stated below per my review and the radiologist's interpretation: XR chest 1V portable CLINICAL HISTORY: Atypical chest pain COMPARISON STUDY: 01/23/2019 FINDINGS: The heart remains enlarged. There is been marked interval improvement in the previously identified bilateral reticulonodular shadowing. There is no evidence for lobar consolidation. There are bibasilar opacity statistically atelectatic. There are no pleural effusions. There is no pneumothorax.[ IMPRESSION: 1. Significant interval improvement in the bilateral diffuse reticular nodular airspace opacities 2. Bilateral lower lung zone opacities statistically atelectatic 3. No evidence of pneumothorax Electronically signed by: Santos Rueda M.D. 04/30/2019 5:40 PM ECG Data Attestation: I personally reviewed and interpreted this ECG as follows: Indication: chest pain Rate (beats per minute): 69 Rhythm: normal sinus ECG Intervals/blocks: Left anterior fascicular block ECG Findings: Other (No: PACs, PVCs, ST depression, ST elevation. QTc of 422.) Blood Pressure Blood Pressure Findings: Low blood pressure Blood Pressure Disposition: further management by hospitalist FELIZ Narrative The patient is a pleasant 78-year-old woman with a past medical history of COPD on chronic home oxygen who presents emergency department with persistent left lower extremity redness and swelling in the setting of a recent diagnosis of cellulitis with failed outpatient treatment with Levaquin seen in the emergency department several days ago with trial of one-time Dalvance however upon 48-hour follow-up the patient had minimal improvement however she did not want admission at that time and so a second 24-hour follow-up was arranged and so she presents today with continued lack of improvement with no definite worsening per the patient. On arrival the patient is in no acute distress, chronically il l-appearing, afebrile stable vital signs. On exam the patient has erythema warmth and 3+ edema to the left lower leg without crepitus. Given the patient's lack of improvement she was agreeable today for admission for IV antibiotics. Cultures were drawn and lab work performed WBC, H/H and platelets within normal limits. INR 2.4. Chemistry without acidosis. Electrolytes and LFTs unremarkable. Troponin negative. EKG without overt acute ischemia. Chest x- ray negative for acute process. Order for Cefepime and Vancomycin for now. Dr. Freedom Barber discussed the case with Dr. Estevez, [facility] hospitalist, who will evaluate the patient for admission. This patient was managed with the assistance of resident, Dr. Freedom Barber. I discussed the case with the resident, examined the patient, and confirm the findings and plan as documented in this note. Impression & Plan Cellulitis, Failure of outpatient treatment, History of hypertension, History of CHF (congestive heart failure) Discharge Plan Visit Data *Final* Discharge Date/Time: 04/30/19 21:02 Chief Complaint: Infection Stated Complaint: RECHECK FOR CELLULITIS ED Provider: Sanjeev Berkowitz ED Midlevel Provider: Freedom Barber Discharge Problem: Cellulitis, Failure of outpatient treatment, History of hypertension, History of CHF (congestive heart failure) Patient Disposition: Admitted As Inpatient Discharge Instructions Interventions: ED Discharge Assessment Last Done: 04/30/19 21:02 Discharge Problem: Cellulitis Qualifiers: Site of cellulitis: extremity Site of cellulitis of extremity: lower extremity Laterality: left Qualified Code(s): L03.116 - Cellulitis of left lower limb The scribe's documentation has been prepared under my direction and personally reviewed by me in its entirety. I confirm that the note above accurately reflects all work, treatment, procedures, and medical decision making performed by me.
[2019-05-01] MEDS: FLUTICASONE/SALMETEROL 250/50 (ADVAIR) 14 PUFF/1 INHALER INH SCH ×3 (00:12→21:40)
[2019-05-01] MEDS: ISOSORBIDE DINITRATE 10 MG TAB PO SCH ×4 (00:16→21:44)
[2019-05-01] MEDS: TRAMADOL HCL 50 MG TABLET PO PRN ×4 (00:23→21:57)
[2019-05-01] MEDS: ALPRAZolam 0.5 MG TABLET PO PRN ×3 (00:23→21:42)
[2019-05-01] MEDS ORDERED: CARISOPRODOL 350 MG TABLET PO PRN ×2 (00:53→22:32)
[2019-05-01] MEDS: MoRPHine SULFATE CR 15 MG TABCR PO PRN ×3 (01:29→21:42)
[2019-05-01 01:49] LABS: Hematocrit (blood only) 37.7 % (37-47); Hemoglobin 12.3 g/dL (12.0-16.0); Mean Corpuscular Hemoglobin 30.7 pg (25-34); Mean Corpuscular Hgb Conc 32.6 g/dL (32-36); Mean Platelet Volume 9.2 fL (7.4-10.4); Platelet Count 247 K/uL (130-400); RDW Coefficient of Variation 14.9 % (11.5-14.5); Red Blood Count 4.01 M/uL (4.2-5.4); White Blood Count 8.12 K/uL (4.8-10.8)
[2019-05-01 01:59] LABS: INR 1.9 (0.9-1.1); Prothrombin Time 18.9 Seconds (9.0-12.0)
[2019-05-01 02:06] LABS: BUN Creatinine Ratio 18.1 (10-20); Calcium 9.2 mg/dl (8.5-10.1); Creatinine Clr Calc Pharmacy 55.2 ml/min; Est GFR (African American) 67.4; Est GFR (Non-African American) 58.2; Potassium 3.9 mmol/L (3.5-5.1)
[2019-05-01] MEDS: LEVOTHYROXINE SODIUM 112 MCG TABLET PO SCH (06:04)
[2019-05-01] MEDS: NICOTINE 21 MG/24 HR TDSY TD SCH (07:38)
[2019-05-01] MEDS ORDERED: VANCOMYCIN HCL 1,250 MG in SODIUM CHLORIDE 0.9% 250 ML IV SCH (10:00)
--- NOTE | 2019-05-01 11:01 | Infectious Disease Consult ---
Date of Consultation May 01, 2019 Assessment & Plan (1) Cellulitis of right lower extremity: Patient with worsening right lower extremity cellulitis despite what should have been adequate therapy. Will change patient to IV ceftaroline, with length of IV antibiotics to be determined by clinical response. Will follow. History of Present Illness Reason for Consultation: Right lower extremity cellulitis refractory to dalbavancin Attending Physician: Aquiles Toure MD History of Present Illness 78-year-old female with history of stage III chronic kidney disease, congestive heart failure, coronary artery disease, hypothyroidism, COPD, CAD, paroxysmal atrial fibrillation, who was diagnosed 1 week ago with right lower extremity cellulitis. She was given a dose of IV dalbavancin and oral levofloxacin, but developed worsening redness and swelling of her right leg and so was admitted for further management. She is now been started empirically on vancomycin and cefepime. Cultures are pending. Complaining of some pain in her right leg, currently 3 out of 10 in intensity. No reported fever or chills. Allergies Allergy/AdvReac Type Severity Reaction Status Date / Time fentanyl Allergy Mild Unknown Verified 04/30/19 16:40 nitrofurantoin Allergy Mild Unknown Verified 04/30/19 16:40 Penicillins Allergy Mild Unknown Verified 04/30/19 16:40 Home Medications Home Medications Medication Instructions Recorded Confirmed Type Refresh Optive 0.5 drp OPB DAILY@0800,1200,1700 01/23/19 04/30/19 History Soothe Night Time Lubricant 20 inch OPB HS 01/23/19 04/30/19 History Spiriva with HandiHaler 18 mcg INHALATION DAILY@1000 01/23/19 04/30/19 History Vitron-C 65 tab PO DAILY@1200 01/23/19 04/30/19 History albuterol sulfate [Ventolin HFA] 90 mcg INHALATION Q4H PRN 01/23/19 04/30/19 History alprazolam 0.5 mg PO DAILY@1000,2200 PRN 01/23/19 04/30/19 History alum-mag hydroxide-simeth [Mi-Acid] 15 ml PO Q4H PRN 01/23/19 04/30/19 History aspirin 81 mg PO DAILY@1200 01/23/19 04/30/19 History betamethasone, augmented 1 applic TOPICAL DAILY@0800,1700 01/23/19 04/30/19 History carisoprodol 350 mg PO TID PRN 01/23/19 04/30/19 History duloxetine 60 mg PO DAILY@1600 01/23/19 04/30/19 History ergocalciferol (vitamin D2) 50,000 unit PO MO@1200 01/23/19 04/30/19 History [Vitamin D2] ezetimibe 10 mg PO HS 01/23/19 04/30/19 History fluticasone propion-salmeterol 1 inh INHALATION Q12H 01/23/19 04/30/19 History [Advair Diskus] folic acid 1 mg PO DAILY@1200 01/23/19 04/30/19 History guaifenesin [Mucinex] 600 mg PO BID PRN 01/23/19 04/30/19 History ipratropium-albuterol 0.5 ml INHALATION Q4H PRN 01/23/19 04/30/19 History isosorbide dinitrate 10 mg PO DAILY@1000,1600,2200 01/23/19 04/30/19 History ketoconazole 2 % TOPICAL BID PRN 01/23/19 04/30/19 History levothyroxine 112 mcg PO QAM 01/23/19 04/30/19 History metoprolol succinate 25 mg PO DAILY@1200 01/23/19 04/30/19 History nitroglycerin 0.4 mg SUBLINGUAL QAM PRN 01/23/19 04/30/19 History ondansetron HCl 4 mg PO Q6H PRN 01/23/19 04/30/19 History phenazopyridine 200 mg PO TID PRN 01/23/19 04/30/19 History rosuvastatin 40 mg PO HS 01/23/19 04/30/19 History spironolactone 25 mg PO SUMOWEFRSA@1000 01/23/19 04/30/19 History tramadol 50 mg PO Q4H PRN 01/23/19 04/30/19 History buspirone 10 mg PO DAILY@1200 04/27/19 04/30/19 History buspirone 20 mg PO HS 04/27/19 04/30/19 History furosemide 20 mg PO DAILY@1700 04/27/19 04/30/19 History furosemide 40 mg PO DAILY@0800 04/27/19 04/30/19 History levofloxacin 250 mg PO DAILY@0800 04/27/19 04/30/19 History nicotine 1 patch TD QAM 04/27/19 04/30/19 History potassium chloride [Klor-Con M20] 20 meq PO DAILY@0800 04/27/19 04/30/19 History warfarin 4 mg PO DAILY@1700 04/27/19 04/30/19 History buspirone 5 mg PO QAM 04/30/19 04/30/19 History morphine 30 mg PO DAILY@1000,2200 PRN 04/30/19 04/30/19 History tiotropium bromide [Spiriva with 04/30/19 History HandiHaler] Patient History Medical History CHF (congestive heart failure) (Chronic) Tobacco use (Chronic) Mood disorder (Chronic) Fibromyalgia (Chronic) CKD (chronic kidney disease), stage III (Chronic) CAD (coronary artery disease) (Chronic) Hypothyroidism (Chronic) Chronic respiratory failure (Chronic) home 2L NC O2 Ischemic cardiomyopathy (Chronic) IBS (irritable bowel syndrome) (Chronic) COPD (chronic obstructive pulmonary disease) (Chronic) Pulmonary edema (Acute) Respiratory acidosis (Acute) Myocardial infarction (Resolved) Chronic interstitial cystitis (Chronic) Chronic pain (Chronic) Surgical History H/O cystoscopy (Chronic) H/O heart artery stent (Chronic) Family History Other Colorectal cancer Heart disease Social History Preferred Language: [place] Communication Ability: Effective Lock Setter Required: No Beliefs That Will Affect Care: None marital status: Current Living Situation: Personal Care Facility Current Living Situation Comment: [facility] current occupational status: retired Other Information That Helps Us Care for You: No Feels Safe at Home: Yes Safety Concerns: Feels Safe At This Time Smoking Status: Former smoker Tobacco Type: cigarettes ; Cigarettes Per Day: 10 ; Smoking End Date: december ; Hx Alcohol Use: No Hx Substance Use: No Review of Systems Review of Systems: All systems reviewed & are unremarkable except as noted in HPI & below Physical Exam Constitutional: WD/WN, vitals as above comfortable; no acute distress Eyes: PERRL, conjunctivae normal, anicteric sclerae ENMT: external ear and nose normal, oropharynx normal Neck: trachea midline, no thyromegaly neck nontender Respiratory: normal respiratory effort, lungs clear to auscultation normal percussion; does not use accessory muscles Cardiovascular: Rate/Rhythm: regular rate and regular rhythm Heart Sounds: normal S1 and normal S2; no gallop, no murmur and no cardiac rub Vessels: normal peripheral pulses; no JVD Extremities: + edema (Right lower extremity below the knee) Gastrointestinal (Abdomen): normal bowel sounds, soft, nontender, no hepatosplenomegaly Musculoskeletal: no cyanosis or clubbing, extremities motor strength 5/5 Spine: thoracic spine normal to inspection and lumbar spine normal to inspection; no cervical spinal tenderness Skin: no rashes, warm and dry normal turgor and + erythema (.Right lower extremity from mid kamara to foot, small eschar on kamara) Neurologic: patellar DTR's 2+ bilat, sensation intact no focal motor deficits Psychiatric: A+Ox3, euthymic affect Orientation: cooperative Lymphatic: no cervical or axillary lymphadenopathy no inguinal lymphadenopathy Results & Data Vital Signs (Past 12 Hours) Vital Signs Temp Pulse Resp BP Pulse Ox 05/01/19 07:37 36.8 C 74 14 131/86 95 05/01/19 00:20 75 111/70 04/30/19 23:00 36.8 C 81 18 117/69 96 Laboratory Results Short CBC 04/30/19 05/01/19 Range/Units 17:38 01:01 WBC 7.92 8.12 (4.8-10.8) K/uL Hgb 12.9 12.3 (12.0-16.0) g/dL Hct 38.9 37.7 (37-47) % Plt Count 266 247 (130-400) K/uL BMP 04/30/19 05/01/19 17:38 01:01 Sodium 137 138 Potassium 4.2 3.9 Chloride 98 101 Carbon Dioxide 35 H 32 BUN 20 H 17 Creatinine 1.04 0.95 Glucose 95 107 H Calcium 9.6 9.2 Cardiac Enzymes 04/30/19 Range/Units 17:38 Troponin I < 0.015 (0-0.045) ng/ml Liver Function 04/30/19 Range/Units 17:38 Total Bilirubin 0.3 (0.2-1) mg/dl AST 22 (15-37) U/L ALT 20 (12-78) U/L Alkaline Phosphatase 89 (45-117) U/L Albumin 3.2 L (3.4-5.0) gm/dl Diagnostic Findings XR chest 1V portable CLINICAL HISTORY: Atypical chest pain COMPARISON STUDY: 01/23/2019 FINDINGS: The heart remains enlarged. There is been marked interval improvement in the previously identified bilateral reticulonodular shadowing. There is no evidence for lobar consolidation. There are bibasilar opacity statistically atelectatic. There are no pleural effusions. There is no pneumothorax.[ IMPRESSION: 1. Significant interval improvement in the bilateral diffuse reticular nodular airspace opacities 2. Bilateral lower lung zone opacities statistically atelectatic 3. No evidence of pneumothorax Electronically signed by: Santos Rueda M.D. 04/30/2019 5:40 PM Dictated: 04/30/19 1739 PG Care Time/CCT Total # of Minutes Spent Total Time Spent with Patient: Total time spent is greater than 50% in coordination of care (as documented) at patient's floor/unit and/or counseling patient:
[2019-05-01] MEDS: TIOTROPIUM BROMIDE 5 PUFF/90 MCG INH INH SCH (11:08)
[2019-05-01] MEDS: FOLIC ACID 1 MG TAB PO SCH (11:09)
[2019-05-01] MEDS: ASPIRIN 81 MG ECTAB PO SCH (11:09)
[2019-05-01] MEDS: SPIRONOLACTONE 25 MG TAB PO SCH (11:09)
[2019-05-01] MEDS: METOPROLOL SUCC 25MG EXT REL TAB PO SCH (11:10)
--- NOTE | 2019-05-01 11:21 | Hospitalist Progress Note ---
Date of Service May 01, 2019 Assessment & Plan (1) Cellulitis of right lower extremity: RLE cellulitis refractory to Levaquin p.o. x4 days plus dalbavancin given on 04/28. Pt afebrile. No leukocytosis. -Blood cultures pending -Continue cefepime and Vancomycin -ID consult, appreciate recommendations -CBC, BMP in am (2) Hypotension: SBPs in 90's yesterday. Was given 500ml NSS Since BPs improved to 111/70, 131/86 -Resolved -Monitor BP (3) Paroxysmal A-fib: Regular rhythm, rate controlled -Continue metoprolol -INR: 1.9 -Continue Coumadin -INR in am (4) CKD (chronic kidney disease), stage III: Cr: 0.95. Baseline Cr: 0.9-1.0 -Avoid nephrotoxic agents when possible -Monitor renal functions (5) CAD (coronary artery disease): STEMI S/P LAD stent in 01/2006 H/O ischemic cardiomyopathy Chronic, has reported stable angina No current CP, SOB Appears euvolemic -Continue aspirin, isordil, metoprolol, crestor, zetia, spironolactone -Resume lasix (6) Hypothyroidism: Normal TSH last month. -Continue levothyroxine (7) Chronic respiratory failure: COPD. On chronic oxygen. No SOB, wheezing. -Continue chronic home oxygen via [place] -Continue home inhalers -Continue Duoneb prn wheezing/SOB (8) Chronic anemia: H/O iron deficiency anemia Hgb: 12.3 and stable -Continue iron supplement (9) Mood disorder: Hx mood disorder, depression, anxiety Pt currently irritable. Refusing morning medications Pt able to be calmed and allowed to vent her frustrations. I was able to confirm med list from [facility] and aligned the times of day of her medications her in hospital to outpatient time schedule Reports is now willing to take her medications and inhalers -Continue buspirone, duloxetine, alprazolam (10) DVT prophylaxis: Anticoagulated on Coumadin Pt was seen and care coordinated with Dr Toure. See addendum Supervising Physician Co-Signing Physician Notes HISTORY: Record reviewed. Patient interviewed and examined. Care coordinated with Linda Drummond PA-C. Patient had concerns about antibiotics and other medications this morning. She is concerned that cellulitis has not yet improved. No fever. EXAM: General- no distress Lungs- clear to auscultation; no respiratory distress Cardiovascular- RRR; no murmur; no gallop; no JVD; no pretibial edema Abdomen- + bowel sounds, soft, nontender Extremities- no cyanosis; no calf tenderness; 1-2 + edema and erythema RLE below knee Neuro- alert, oriented Skin- warm & dry DATA: Blood cultures negative so far. WBC 8120. ASSESSMENT AND PLAN: Cellulitis RLE. Failed outpatient management. ID consulted. Rx with IV ceftaroline recommended. Chronic left ventricular systolic heart failure. Echo 01/24/19 showed LVEF 20-25%. Compensated. Please refer to OTTO Drummond's documentation for discussion of other issues. Subjective Pt seen and examined. Lying in bed. Pt easily sits up in bed without assistance. Today pt reports some pain to right lower leg. She feels the antibiotics given last night have helped and reports some decreased swelling to right lower leg. Still with erythema and warmth. Denies fever/chills. This morning pt upset about her medications and feels that her home meds are not being continued here in hospital and is upset that she is not receiving her medications at the exact time she usually takes them outpatient. She has refused her am meds and inhalers today as reports she is mad. After further discussion with pt she states that she would be willing to take her medications after I verify her home meds. Pt also reports refused to eat this morning, also because she was upset. Now states she is a little hungry and plans on eating lunch. She expresses concerns about antibiotic choices and voices that she doesn't want any further Dalvance that was given prior to hospitalization as that did not work. She also voices concern over Gentamicin that she does not want to be given that secondary to side effect of hearing loss. Pt currently is on Cefepime and Vancomycin and seems satisfied with these antibiotic choices. Denies fever/chills, diaphoresis, N/V/D, YOU, dizziness, syncope, vision changes, neck pain, CP, SOB, orthopnea, palpitations, cough, sore throat, choking, otalgia, rhinorrhea, abdominal pain, paresthesias, extremity weakness, other rashes, urinary symptoms. Review of Systems Review of Systems: All systems reviewed & are unremarkable except as noted in HPI & below Physical Exam Physical Exam: General: no acute distress, WDWN Head: normocephalic, atraumatic Eyes: PERRL, EOM's intact, conjunctiva non-injected, anicteric ENT: normal inspection external ears, nose, mucous membranes moist Neck: supple, trachea midline, non-tender Lungs: clear, no respiratory distress, no wheezing/rhonchi/rales; on 2L oxygen nasal canula chronically CV: RRR, no murmur,no pretibial to LLE Abd: normal BS, soft, +umbilical hernia. Pt denies palpation of abdomen as reports is not painful and does not want it to become painful Ext: no calf tenderness; RLE: + erythema, edema and warmth to right lower extremity, skin markings in place and erythema within skin markings Neuro: A&O x 3, no focal deficits noted, pt irritable, does calm somewhat with gentle reassurance and interaction Skin: warm, dry; RLE as above Results & Data Vital Signs (Past 12 Hours) Vital Signs Temp Pulse Resp BP Pulse Ox 05/01/19 07:37 36.8 C 74 14 131/86 95 05/01/19 00:20 75 111/70 Laboratory Results Short CBC 04/30/19 04/30/19 04/30/19 Range/Units 17:38 17:38 21:34 WBC 7.92 (4.8-10.8) K/uL Hgb 12.9 (12.0-16.0) g/dL Hct 38.9 (37-47) % Plt Count 266 (130-400) K/uL INR 2.4 H (0.9-1.1) Glucose 95 (70-99) mg/dl 05/01/19 05/01/19 05/01/19 Range/Units 01:01 01:01 01:01 WBC 8.12 (4.8-10.8) K/uL Hgb 12.3 (12.0-16.0) g/dL Hct 37.7 (37-47) % Plt Count 247 (130-400) K/uL INR 1.9 H (0.9-1.1) Glucose 107 H (70-99) mg/dl BMP 04/30/19 05/01/19 17:38 01:01 Sodium 137 138 Potassium 4.2 3.9 Chloride 98 101 Carbon Dioxide 35 H 32 BUN 20 H 17 Creatinine 1.04 0.95 Glucose 95 107 H Calcium 9.6 9.2 Cardiac Enzymes 04/30/19 Range/Units 17:38 Troponin I < 0.015 (0-0.045) ng/ml Liver Function 04/30/19 Range/Units 17:38 Total Bilirubin 0.3 (0.2-1) mg/dl AST 22 (15-37) U/L ALT 20 (12-78) U/L Alkaline Phosphatase 89 (45-117) U/L Albumin 3.2 L (3.4-5.0) gm/dl
[2019-05-01] MEDS: CEFTAROLINE FOSAMIL ACETATE 600 MG in SODIUM CHLORIDE 0.9% 250 ML IV SCH ×2 (12:45→21:50)
[2019-05-01] MEDS: FERROUS SULFATE 325 MG TAB PO SCH (12:45)
[2019-05-01] MEDS ORDERED: TIOTROPIUM BROMIDE 5 PUFF/90 MCG INH INH ONE (13:03)
[2019-05-01] MEDS ORDERED: ALBUT/IPRATROP 3MG/0.5MG NEB 3 ML VIAL NEB PRN (13:07)
[2019-05-01] MEDS ORDERED: POTASSIUM CHLORIDE 20 MEQ TABCR PO STA (13:16)
[2019-05-01] MEDS ORDERED: TIOTROPIUM BROMIDE 5 PUFF/90 MCG INH INH SCH (13:30)
[2019-05-01] MEDS ORDERED: CEFEPIME 2,000 MG in SYRINGE 7.5 ML IV SCH (16:00)
[2019-05-01] MEDS: ARTIFICIAL TEARS OPB SCH (16:47)
[2019-05-01] MEDS: FUROSEMIDE 20 MG TAB PO SCH (16:48)
[2019-05-01] MEDS: DULOXETINE HCL 60 MG CAP PO SCH (16:48)
[2019-05-01] MEDS ORDERED: WARFARIN SOD 4 MG TAB PO SCH (17:00)
[2019-05-01] MEDS: ROSUVASTATIN CALCIUM 20 MG TAB PO SCH (21:42)
[2019-05-01] MEDS: EZETIMIBE 10 MG TABLET PO SCH (21:46)
[2019-05-02] MEDS: LEVOTHYROXINE SODIUM 112 MCG TABLET PO SCH (06:44)
[2019-05-02 07:24] LABS: Hematocrit (blood only) 37.6 % (37-47); Hemoglobin 11.6 g/dL (12.0-16.0); Mean Corpuscular Hemoglobin 29.1 pg (25-34); Mean Corpuscular Hgb Conc 30.9 g/dL (32-36); Mean Corpuscular Volume 94.2 fL (80-100); Mean Platelet Volume 8.9 fL (7.4-10.4); Platelet Count 225 K/uL (130-400); RDW Coefficient of Variation 14.9 % (11.5-14.5); Red Blood Count 3.99 M/uL (4.2-5.4); White Blood Count 5.71 K/uL (4.8-10.8)
[2019-05-02 07:32] LABS: INR 1.6 (0.9-1.1); Prothrombin Time 15.9 Seconds (9.0-12.0)
[2019-05-02 07:49] LABS: BUN Creatinine Ratio 15.1 (10-20); Calcium 9.1 mg/dl (8.5-10.1); Creatinine Clr Calc Pharmacy 58.1 ml/min; Est GFR (Non-African American) 62.1; Potassium 3.9 mmol/L (3.5-5.1)
[2019-05-02] MEDS: ARTIFICIAL TEARS OPB SCH ×3 (07:59→16:07)
[2019-05-02] MEDS: FUROSEMIDE 40 MG TAB PO SCH (08:00)
[2019-05-02] MEDS: POTASSIUM CHLORIDE 20 MEQ TABCR PO SCH (08:01)
[2019-05-02] MEDS: FLUTICASONE/SALMETEROL 250/50 (ADVAIR) 14 PUFF/1 INHALER INH SCH ×2 (08:01→20:38)
[2019-05-02] MEDS: NICOTINE 21 MG/24 HR TDSY TD SCH (08:02)
[2019-05-02] MEDS: ISOSORBIDE DINITRATE 10 MG TAB PO SCH ×3 (08:04→21:36)
[2019-05-02] MEDS: TIOTROPIUM BROMIDE 5 PUFF/90 MCG INH INH SCH (08:05)
[2019-05-02] MEDS: CEFTAROLINE FOSAMIL ACETATE 600 MG in SODIUM CHLORIDE 0.9% 250 ML IV SCH ×2 (09:13→20:39)
--- NOTE | 2019-05-02 09:17 | Hospitalist Progress Note ---
Date of Service May 02, 2019 Assessment & Plan (1) Cellulitis of right lower extremity: RLE cellulitis refractory to Levaquin p.o. x4 days plus dalbavancin given on 04/28. Pt afebrile. No leukocytosis. -Preliminary blood cultures with no growth -Initially received cefepime and Vancomycin -Transitioned to ceftaroline on 05/01/19 by ID -ID consult, appreciate recommendations -CBC, BMP in am (2) Hypotension: Variable BP. yesterday 2200 with BP 80/40 BP this am 119/67 -Monitor BP -Continue meds with holding parameters (3) Paroxysmal A-fib: Regular rhythm, rate controlled -Continue metoprolol -INR: 1.6 today -Adjust Coumadin and monitor INR -INR in am (4) CKD (chronic kidney disease), stage III: Cr: 0.95. Baseline Cr: 0.9-1.0 -Avoid nephrotoxic agents when possible -Monitor renal functions (5) CAD (coronary artery disease): H/O ischemic cardiomyopathy H/O Systolic CHF STEMI S/P LAD stent in 01/2006 Echo 01/24/19: EF 20-25%. No current CP, SOB Appears euvolemic -Continue aspirin, Isordil, metoprolol, Crestor, Zetia, spironolactone, Lasix (6) Hypothyroidism: Normal TSH last month. -Continue levothyroxine (7) Chronic respiratory failure: COPD. On chronic oxygen. No SOB, wheezing. -Continue chronic home oxygen via [place] -Continue home inhalers -Continue Duoneb prn wheezing/SOB (8) Chronic anemia: H/O iron deficiency anemia Hgb: 12.3 and stable -Continue iron supplement (9) Mood disorder: Hx mood disorder, depression, anxiety -Continue buspirone, duloxetine, alprazolam (10) DVT prophylaxis: Anticoagulated on Coumadin Pt was seen and care coordinated with Dr Toure. See addendum Supervising Physician Co-Signing Physician Notes HISTORY: Record reviewed. Patient interviewed and examined. Care coordinated with Linda Drummond PA-C. Right leg feels better- decreased erythema and swelling, but still has some pain. No fever. EXAM: General- no distress Lungs- clear to auscultation; no respiratory distress Cardiovascular- RRR; no murmur; no gallop; no JVD; no pretibial edema Abdomen- + bowel sounds, soft, nontender Extremities- no cyanosis; no calf tenderness; 1 + edema and erythema RLE below knee Neuro- alert, oriented Skin- warm & dry DATA: Blood cultures negative so far. WBC 5170. INR 1.6. ASSESSMENT AND PLAN: Cellulitis RLE. Failed outpatient management. ID consulted. Receiving IV ceftaroline with improvement. Chronic left ventricular systolic heart failure. Echo 01/24/19 showed LVEF 20-25%. Compensated. INR 1.6. Aniticipate rising INR with antibiotic therapy. Follow / titrate. Please refer to OTTO Drummond's documentation for discussion of other issues. Subjective Pt seen and examined lying in bed. Pt reports right lower leg with "touchy" areas. States this morning is not hungry and did not eat breakfast. Reports drinking some water. Pt otherwise offers no complaints. Denies fever/chills, diaphoresis, N/V/D/C, YOU, dizziness, vision changes, neck pain, CP, SOB, orthopnea, palpitations, cough, abdominal pain, paresthesias, weakness, extremity weakness, other rashes, urinary symptoms. Review of Systems Review of Systems: All systems reviewed & are unremarkable except as noted in HPI & below Physical Exam Physical Exam: General: no acute distress, WDWN Head: normocephalic, atraumatic Eyes:conjunctiva non-injected, anicteric ENT: normal inspection external ears, nose, mucous membranes moist Neck: supple, trachea midline, non-tender Lungs: clear, no respiratory distress, no wheezing/rhonchi/rales; on 2L oxygen nasal canula chronically CV: RRR, no murmur,no pretibial to LLE, RLE+edema Abd: normal BS, soft, +umbilical hernia. 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, + edema and warmth to right lower extremity Neuro: A&O x 3, no focal deficits noted, flat affect Skin: warm, dry; RLE as above Results & Data Vital Signs (Past 12 Hours) Vital Signs Temp Pulse Resp BP Pulse Ox 05/02/19 07:07 36.7 C 67 18 119/67 95 05/01/19 22:59 36.7 C 76 18 106/66 96 05/01/19 21:43 70 117/62 Laboratory Results Short CBC 04/30/19 05/01/19 05/02/19 Range/Units 21:34 01:01 07:09 WBC (4.8-10.8) K/uL Hgb (12.0-16.0) g/dL Hct (37-47) % Plt Count (130-400) K/uL INR 2.4 H 1.9 H 1.6 H (0.9-1.1) 05/02/19 Range/Units 07:09 WBC 5.71 (4.8-10.8) K/uL Hgb 11.6 L (12.0-16.0) g/dL Hct 37.6 (37-47) % Plt Count 225 (130-400) K/uL INR (0.9-1.1) BMP 05/02/19 07:09 Sodium 140 Potassium 3.9 Chloride 104 Carbon Dioxide 31 BUN 14 Creatinine 0.90 Glucose 106 H Calcium 9.1
[2019-05-02] MEDS: MoRPHine SULFATE CR 15 MG TABCR PO PRN ×2 (09:24→21:38)
[2019-05-02] MEDS: ALPRAZolam 0.5 MG TABLET PO PRN ×2 (09:24→21:44)
[2019-05-02] MEDS: FERROUS SULFATE 325 MG TAB PO SCH (12:04)
[2019-05-02] MEDS: FOLIC ACID 1 MG TAB PO SCH (12:05)
[2019-05-02] MEDS: METOPROLOL SUCC 25MG EXT REL TAB PO SCH (12:05)
[2019-05-02] MEDS: ASPIRIN 81 MG ECTAB PO SCH (12:05)
[2019-05-02] MEDS: DULOXETINE HCL 60 MG CAP PO SCH (16:05)
[2019-05-02] MEDS: FUROSEMIDE 20 MG TAB PO SCH (16:06)
[2019-05-02] MEDS: WARFARIN SOD 5 MG TAB PO SCH (16:07)
[2019-05-02] MEDS: TRAMADOL HCL 50 MG TABLET PO PRN ×2 (16:24→20:37)
--- NOTE | 2019-05-02 20:13 | Infectious Disease Progress Nt ---
Date of Service May 02, 2019 Assessment & Plan (1) Cellulitis of right lower extremity: Patient with worsening right lower extremity cellulitis despite what should have been adequate therapy. Will continue IV ceftaroline, with length of IV antibiotics to be determined by clinical response. Will follow. Subjective Patient seen in follow-up for right lower extremity cellulitis. Pain in right leg slightly better, still "touchy". Blood cultures remain negative. No other new complaints. Review of Systems Review of Systems: All systems reviewed & are unremarkable except as noted in HPI & below Physical Exam Constitutional: WD/WN, vitals as above comfortable; no acute distress Eyes: PERRL, conjunctivae normal, anicteric sclerae ENMT: external ear and nose normal, oropharynx normal Neck: trachea midline, no thyromegaly neck nontender Respiratory: normal respiratory effort, lungs clear to auscultation normal percussion; does not use accessory muscles Cardiovascular: Rate/Rhythm: regular rate and regular rhythm Heart Sounds: normal S1 and normal S2; no gallop, no murmur and no cardiac rub Vessels: normal peripheral pulses; no JVD Extremities: + edema (Right lower extremity below the knee) Gastrointestinal (Abdomen): normal bowel sounds, soft, nontender, no hepatosplenomegaly Musculoskeletal: no cyanosis or clubbing, extremities motor strength 5/5 Spine: thoracic spine normal to inspection and lumbar spine normal to inspection; no cervical spinal tenderness Skin: no rashes, warm and dry normal turgor and + erythema (.Right lower extremity from mid kamara to foot, small eschar on kamara) Neurologic: patellar DTR's 2+ bilat, sensation intact no focal motor deficits Psychiatric: A+Ox3, euthymic affect Orientation: cooperative Lymphatic: no cervical or axillary lymphadenopathy no inguinal lymphadenopathy Results & Data Vital Signs (Past 12 Hours) Vital Signs Temp Pulse Resp BP Pulse Ox 05/02/19 16:03 73 20 115/65 05/02/19 14:56 36.8 C 70 18 86/51 L 98 Laboratory Results Short CBC 05/02/19 Range/Units 07:09 WBC 5.71 (4.8-10.8) K/uL Hgb 11.6 L (12.0-16.0) g/dL Hct 37.6 (37-47) % Plt Count 225 (130-400) K/uL BMP 05/02/19 07:09 Sodium 140 Potassium 3.9 Chloride 104 Carbon Dioxide 31 BUN 14 Creatinine 0.90 Glucose 106 H Calcium 9.1 Diagnostic Findings Microbiology 04/30/19 18:09 Blood Aerobic Blood Culture - Preliminary No growth in Aerobic bottle after 48 hours. 04/30/19 18:09 Blood Anaerobic Blood Culture - Preliminary No growth in Anaerobic bottle after 48 hours. 04/30/19 17:38 Blood Aerobic Blood Culture - Preliminary No growth in Aerobic bottle after 48 hours. 04/30/19 17:38 Blood Anaerobic Blood Culture - Preliminary No growth in Anaerobic bottle after 48 hours. PG Care Time/CCT Total # of Minutes Spent Total Time Spent with Patient: Total time spent is greater than 50% in coordination of care (as documented) at patient's floor/unit and/or counseling patient:
[2019-05-02] MEDS: EZETIMIBE 10 MG TABLET PO SCH (21:36)
[2019-05-02] MEDS: ROSUVASTATIN CALCIUM 20 MG TAB PO SCH (21:37)
[2019-05-02] MEDS: CARISOPRODOL 350 MG TABLET PO PRN (21:44)
[2019-05-03] MEDS: LEVOTHYROXINE SODIUM 112 MCG TABLET PO SCH (05:50)
[2019-05-03 07:38] LABS: Hematocrit (blood only) 38.6 % (37-47); Hemoglobin 12.3 g/dL (12.0-16.0); Mean Corpuscular Hemoglobin 30.1 pg (25-34); Mean Corpuscular Hgb Conc 31.9 g/dL (32-36); Mean Corpuscular Volume 94.4 fL (80-100); Platelet Count 250 K/uL (130-400); RDW Coefficient of Variation 14.9 % (11.5-14.5); RDW Standard Deviation 50.9 fL (36.4-46.3); Red Blood Count 4.09 M/uL (4.2-5.4); White Blood Count 5.28 K/uL (4.8-10.8)
[2019-05-03 07:47] LABS: INR 1.9 (0.9-1.1); Prothrombin Time 18.3 Seconds (9.0-12.0)
[2019-05-03 08:05] LABS: Creatinine Clr Calc Pharmacy 56.2 ml/min; Est GFR (African American) 69.2; Est GFR (Non-African American) 59.7; Potassium 3.8 mmol/L (3.5-5.1)
[2019-05-03] MEDS: ARTIFICIAL TEARS OPB SCH ×3 (08:11→16:34)
[2019-05-03] MEDS: POTASSIUM CHLORIDE 20 MEQ TABCR PO SCH (08:11)
[2019-05-03] MEDS: FUROSEMIDE 40 MG TAB PO SCH (08:12)
[2019-05-03] MEDS: FLUTICASONE/SALMETEROL 250/50 (ADVAIR) 14 PUFF/1 INHALER INH SCH (08:12)
[2019-05-03] MEDS: NICOTINE 21 MG/24 HR TDSY TD SCH (08:13)
[2019-05-03] MEDS: TRAMADOL HCL 50 MG TABLET PO PRN ×2 (08:13→16:40)
[2019-05-03] MEDS: CARISOPRODOL 350 MG TABLET PO PRN (09:35)
[2019-05-03] MEDS: ALPRAZolam 0.5 MG TABLET PO PRN (09:36)
[2019-05-03] MEDS: SPIRONOLACTONE 25 MG TAB PO SCH (09:37)
[2019-05-03] MEDS: ISOSORBIDE DINITRATE 10 MG TAB PO SCH ×2 (09:37→16:35)
[2019-05-03] MEDS: CEFTAROLINE FOSAMIL ACETATE 600 MG in SODIUM CHLORIDE 0.9% 250 ML IV SCH (09:38)
[2019-05-03] MEDS: TIOTROPIUM BROMIDE 5 PUFF/90 MCG INH INH SCH (09:40)
--- NOTE | 2019-05-03 10:10 | Hospitalist Progress Note ---
Date of Service May 03, 2019 Assessment & Plan (1) Cellulitis of right lower extremity: RLE cellulitis refractory to Levaquin p.o. x4 days plus dalbavancin given on 04/28. Admitted 04/30/19 Pt continues to be afebrile. No leukocytosis. Blood cultures with no growth Initially received cefepime and Vancomycin Transitioned to ceftaroline on 05/01/19 by ID Pt with improvement and decreased erythema and edema to RLE today ID consult, appreciate recommendations Monitor CBC, BMP (2) Hypotension: Variable BPs throughout admission with SBP's 80's-130's Most recent BP 110/70 Monitor BP Continue meds with holding parameters (3) Paroxysmal A-fib: Regular rhythm, rate controlled Continue metoprolol INR: 1.9 today Coumadin dosage was adjusted from 4mg daily to 5mg daily starting 04/04/19 Suspect INR will increase with antibiotics and poor oral intake Monitor INR (4) CKD (chronic kidney disease), stage III: Creatinine has been stable. Today Cr: 0.93. Baseline Cr: 0.9-1.0 Avoid nephrotoxic agents when possible Monitor renal functions (5) CAD (coronary artery disease): H/O ischemic cardiomyopathy H/O Systolic CHF STEMI S/P LAD stent in 01/2006 Echo 01/24/19: EF 20-25%. No current CP, SOB Appears euvolemic Continue aspirin, Isordil, metoprolol, Crestor, Zetia, spironolactone, Lasix (6) Hypothyroidism: Normal TSH last month. Continue levothyroxine (7) Chronic respiratory failure: COPD. On chronic oxygen. No SOB, wheezing. Continue chronic home oxygen via [place] Continue home inhalers Continue Duoneb prn wheezing/SOB (8) Chronic anemia: H/O iron deficiency anemia Hgb: 12.3 and stable Continue iron supplement (9) Mood disorder: Hx mood disorder, depression, anxiety Continue buspirone, duloxetine, alprazolam (10) DVT prophylaxis: Anticoagulated on Coumadin Pt was seen and care coordinated with Dr Toure. See addendum Supervising Physician Co-Signing Physician Notes HISTORY: Record reviewed. Patient interviewed and examined. Care coordinated with Linda Drummond PA-C. Right leg feels better- decreased erythema and swelling. No fever. No diarrhea. EXAM: General- no distress Extremities- trace-1 + edema and erythema RLE below knee (significantly improved). Neuro- alert, oriented DATA: Blood cultures negative so far. WBC 5280. INR 1.9. ASSESSMENT AND PLAN: Cellulitis RLE. Failed outpatient management. ID consulted. Received IV ceftaroline with improvement. Transitioned to clindamycin 300 mg TID x 10 days per ID's recommendations. Chronic left ventricular systolic heart failure. Echo 01/24/19 showed LVEF 20-25%. Compensated. INR 1.9. Aniticipate rising INR with antibiotic therapy. Follow / titrate. Scheduled for INR 05/07. MRSA carrier. Nasal MRSA swab +. Discussed with patient, daughter, Gia Sunshine. Given [employer] info. Please refer to OTTO Drummond's documentation for discussion of other issues. Subjective Patient seen in f/u for right lower extremity cellulitis. Lying in bed. Reports some areas of RLE still painful, but overall feels like leg is less painful and less swollen. Pt still irritable that she is in the hospital. Is looking forward to going back to [facility]. Pt states she will not eat much while she is in hospital until she gets discharged back home. Denies fever/chills, N/V/D/C, YOU, dizziness, neck pain, CP, SOB, orthopnea, palpitations, cough, abdominal pain, other rashes, urinary symptoms. Review of Systems Review of Systems: All systems reviewed & are unremarkable except as noted in HPI & below Physical Exam Physical Exam: General: no acute distress, WDWN Head: normocephalic, atraumatic Eyes: conjunctiva non-injected, anicteric ENT: normal inspection external ears, nose, mucous membranes moist Neck: supple, trachea midline Lungs: clear, no respiratory distress, no wheezing/rhonchi/rales CV: RRR, no murmur,no pretibial to LLE, RLE 1+ edema Abd: normal BS, soft, +umbilical hernia. Pt denies palpation of abdomen Ext: no calf tenderness; RLE: Erythema has decreased, decreased edema and warmth , +scab areas to lower extremity Neuro: A&O x 3, no focal deficits noted, flat affect Skin: warm, dry; RLE as above Results & Data Vital Signs (Past 12 Hours) Vital Signs Temp Pulse Resp BP Pulse Ox 05/02/19 22:57 36.7 C 75 19 94/52 L 90 Laboratory Results Short CBC 05/03/19 Range/Units 07:04 WBC 5.28 (4.8-10.8) K/uL Hgb 12.3 (12.0-16.0) g/dL Hct 38.6 (37-47) % Plt Count 250 (130-400) K/uL BMP 05/03/19 07:04 Sodium 140 Potassium 3.8 Chloride 103 Carbon Dioxide 35 H BUN 11 Creatinine 0.93 Glucose 86 Calcium 9.0
[2019-05-03] MEDS: MoRPHine SULFATE CR 15 MG TABCR PO PRN (11:09)
[2019-05-03] MEDS: ASPIRIN 81 MG ECTAB PO SCH (12:21)
[2019-05-03] MEDS: FERROUS SULFATE 325 MG TAB PO SCH (12:21)
[2019-05-03] MEDS: FOLIC ACID 1 MG TAB PO SCH (12:22)
[2019-05-03] MEDS: METOPROLOL SUCC 25MG EXT REL TAB PO SCH (12:22)
--- NOTE | 2019-05-03 15:13 | Infectious Disease Progress Nt ---
Date of Service May 03, 2019 Assessment & Plan (1) Cellulitis of right lower extremity: Patient with right lower extremity cellulitis, improved with IV antibiotics. Patient to be transitioned to oral clindamycin 300 mg 3 times daily, likely in the range of [address] Toure. Subjective Patient seen in f/u for right lower extremity cellulitis. Still very angry about being in hospital, but states that the right leg has improved since on IV antibiotics. Refusing to eat until discharged. Remains afebrile. Blood cultures remain negative. Review of Systems Review of Systems: All systems reviewed & are unremarkable except as noted in HPI & below Physical Exam Constitutional: WD/WN, vitals as above comfortable; no acute distress Eyes: PERRL, conjunctivae normal, anicteric sclerae ENMT: external ear and nose normal, oropharynx normal Neck: trachea midline, no thyromegaly neck nontender Respiratory: normal respiratory effort, lungs clear to auscultation normal percussion; does not use accessory muscles Cardiovascular: Rate/Rhythm: regular rate and regular rhythm Heart Sounds: normal S1 and normal S2; no gallop, no murmur and no cardiac rub Vessels: normal peripheral pulses; no JVD Extremities: + edema (Right lower extremity below the knee) Gastrointestinal (Abdomen): normal bowel sounds, soft, nontender, no hepatosplenomegaly Musculoskeletal: no cyanosis or clubbing, extremities motor strength 5/5 Spine: thoracic spine normal to inspection and lumbar spine normal to inspection; no cervical spinal tenderness Skin: no rashes, warm and dry normal turgor and + erythema (Improvement from admission, still with some erythema of distal lower leg.) Neurologic: patellar DTR's 2+ bilat, sensation intact no focal motor deficits Psychiatric: A+Ox3, euthymic affect Orientation: cooperative Lymphatic: no cervical or axillary lymphadenopathy no inguinal lymphadenopathy Results & Data Vital Signs (Past 12 Hours) Vital Signs Temp Pulse Resp BP Pulse Ox 05/03/19 14:58 36.6 C 64 18 104/66 97 05/03/19 12:19 66 102/65 05/03/19 08:00 36.8 C 65 14 110/70 97 Laboratory Results Short CBC 05/03/19 Range/Units 07:04 WBC 5.28 (4.8-10.8) K/uL Hgb 12.3 (12.0-16.0) g/dL Hct 38.6 (37-47) % Plt Count 250 (130-400) K/uL BMP 05/03/19 07:04 Sodium 140 Potassium 3.8 Chloride 103 Carbon Dioxide 35 H BUN 11 Creatinine 0.93 Glucose 86 Calcium 9.0 Diagnostic Findings Microbiology 04/30/19 18:09 Blood Aerobic Blood Culture - Preliminary No growth in Aerobic bottle after 48 hours. 04/30/19 18:09 Blood Anaerobic Blood Culture - Preliminary No growth in Anaerobic bottle after 48 hours. 04/30/19 17:38 Blood Aerobic Blood Culture - Preliminary No growth in Aerobic bottle after 48 hours. 04/30/19 17:38 Blood Anaerobic Blood Culture - Preliminary No growth in Anaerobic bottle after 48 hours. PG Care Time/CCT Total # of Minutes Spent Total Time Spent with Patient: Total time spent is greater than 50% in coordination of care (as documented) at patient's floor/unit and/or counseling patient:
[2019-05-03] MEDS: WARFARIN SOD 5 MG TAB PO SCH (16:33)
[2019-05-03] MEDS: DULOXETINE HCL 60 MG CAP PO SCH (16:34)
[2019-05-03] MEDS: FUROSEMIDE 20 MG TAB PO SCH (16:34)
[2019-05-03] MEDS ORDERED: CLINDAMYCIN HCL 150 MG CAP PO SCH ×3 (16:45→22:00)
--- NOTE | 2019-05-04 09:58 | Discharge Summary ---
Date of Service Date of Admission: 04/30/19 Date of Discharge: 05/03/19 Admission HPI Per Admitting Provider 78-year-old female presented from [facility] with right lower extremity cellulitis present for the last 7 days and refractory to Levaquin p.o. and dalbavancin given in the ER 2 days ago. She denies any fevers or chills but does report some pain in her right lower extremity. She otherwise denies any chest pain, shortness of breath, nausea, vomiting, diarrhea, changes in urination or other issues at this time. She has been tolerating food without issue. Principal Diagnosis cellulitis right lower extremity OTHER ACUTE / NEW DIAGNOSES: MRSA carrier (+ nasal MRSA screen) Discharge Data Allergies Allergy/AdvReac Type Severity Reaction Status Date / Time fentanyl Allergy Mild Unknown Verified 04/30/19 16:40 nitrofurantoin Allergy Mild Unknown Verified 04/30/19 16:40 Penicillins Allergy Mild Unknown Verified 04/30/19 16:40 Consultations 04/30/19 19:03 ED Decision to Admit Stat 04/30/19 21:09 Consult Case Management - Discharge Planning Routine Consult Infectious Diseases Routine Hospital Course (1) Cellulitis of right lower extremity: RLE cellulitis refractory to Levaquin p.o. x4 days plus dalbavancin given on 04/28. Admitted 04/30/19 Pt continues to be afebrile. No leukocytosis. Blood cultures with no growth Initially received cefepime and Vancomycin Transitioned to ceftaroline on 05/01/19 by ID Pt with improvement and decreased erythema and edema to RLE today ID consult, appreciate recommendations (Discharge on clindamycin 300 mg TID x 10 days per ID recommendations. Patient has dry feet and often scratches and pulls skin on the soles of her feet. Exam revealed several healing lesions without drainage. Suspect that port of entry for cellulitis related to trauma to feet. Foot care with moisturizers and avoidance of trama discussed. ratna) (2) Paroxysmal A-fib: Regular rhythm, rate controlled Continue metoprolol INR: 1.9 today Coumadin dosage was adjusted from 4mg daily to 5mg daily starting 04/04/19 Suspect INR will increase with antibiotics and poor oral intake Monitor INR (Scheduled for f/u INR 05/07. ratna) (3) CKD (chronic kidney disease), stage III: Creatinine has been stable. Today Cr: 0.93. Baseline Cr: 0.9-1.0 Avoid nephrotoxic agents when possible Monitor renal functions (4) CAD (coronary artery disease): H/O ischemic cardiomyopathy H/O Systolic CHF STEMI S/P LAD stent in 01/2006 Echo 01/24/19: EF 20-25%. No current CP, SOB Appears euvolemic Continue aspirin, Isordil, metoprolol, Crestor, Zetia, spironolactone, Lasix (5) Hypothyroidism: Normal TSH last month. Continue levothyroxine (6) Chronic respiratory failure: COPD. On chronic oxygen. No SOB, wheezing. Continue chronic home oxygen via [place] Continue home inhalers Continue Duoneb prn wheezing/SOB (7) Chronic anemia: H/O iron deficiency anemia Hgb: 12.3 and stable Continue iron supplement (8) Mood disorder: Hx mood disorder, depression, anxiety Continue buspirone, duloxetine, alprazolam (9) DVT prophylaxis: Anticoagulated on Coumadin (10) Discharge planning issues: Discharged to [facility]. Patient wishes to establish with new PCP. Arrangements made for posthospital check and primary care follow-up with Dr. Melara. Total Time Total Time Spent Total Time Spent (In Minutes): 45 Discharge Plan Discharge Items Patient Disposition: Personal Alf Reason For Visit: cellulitis right leg Discharge Diagnosis: cellulitis right leg MRSA nasal carrier Condition on Discharge: Good Activity: Resume your previous activity Non-emergency contact: Primary Care Provider, Dolly Driver and [employer] Call non-emergency contact if: you have any medication questions, your symptoms worsen and your temperature is above 101 Follow-up/Referrals: [facility] [Provider Group] (05/09/2019 1:00 PM Crystal Melara, [facility]) Diet: Heart Healthy Addtl Attending Provider Instructions: MEDICATION CHANGES: Stop levofloxacin (Levaquin). Start clindamycin (Cleocin) 300 mg 3 times a day until gone. SUMMARY OF TEST RESULTS: Nasal swab showed that you carry MRSA. Blood cultures were negative- no sign of infection in blood stream. PENDING TEST RESULTS: None. RECOMMENDATIONS FOR FOLLOW-UP: Please take good care of your feet. Use a moisturizing cream like Eucerin twice a day. Do not scratch or pull skin. Do not walk around in bare feet. Have your INR checked next week on Monday to monitor warfarin (Coumadin). OTHER INSTRUCTIONS: Elevate right leg on pillow to help control swelling. Most antibiotics can cause diarrhea. Eating yogurt with active culture may help. Have a stool test for C diff if you have 3 or more loose stools a day. Seek medical attention if you have: * temperature above 101 * chest pain or trouble breathing * abdominal pain, nausea, vomiting * diarrhea, dark stools or bloody stools * worsening pain or swelling of leg or foot * any unanswered questions or concerns Call 911 if symptoms are severe. Please take good care of yourself. Call if you have any questions or problems. You can reach a [facility] hospitalist on duty at [facility] 24 hours a day by calling [phone]. My cell # is [phone]. Pending Studies at Discharge: No Stand-Alone Forms: My [facility], Smoking Cessation Skilled Items Patient informed of condition?: Yes DNR: No Discharge Level of Care: Other Communicable Disease: Yes (MRSA carrier) Discharge Prognosis: Improving Lines: None Urinary Catheter: No Medications and DC Order Prescriptions: New clindamycin HCl 150 mg Capsule 300 mg PO Q8 10 Days Qty: 60 RF: 0 Continued furosemide 40 mg tablet 40 mg PO DAILY@0800 RF: 0 warfarin 4 mg tablet 4 mg PO DAILY@1700 RF: 0 potassium chloride [Klor-Con M20] 20 mEq tablet,ER particles/crystals 20 meq PO DAILY@0800 RF: 0 buspirone 10 mg tablet 20 mg PO HS RF: 0 buspirone 10 mg tablet 10 mg PO DAILY@1200 RF: 0 furosemide 20 mg tablet 20 mg PO DAILY@1700 RF: 0 nicotine 21 mg/24 hr patch 24 hour 1 patch TD QAM RF: 0 carisoprodol 350 mg Tablet 350 mg PO TID PRN (Reason: Edema) RF: 0 isosorbide dinitrate 10 mg Tablet 10 mg PO DAILY@1000,1600,2200 RF: 0 ipratropium-albuterol 0.5 mg-3 mg(2.5 mg base)/3 mL Solution For Nebulization 0.5 ml inhalation Q4H PRN (Reason: Shortness Of Breath) RF: 0 phenazopyridine 200 mg Tablet 200 mg PO TID PRN (Reason: Urinary Pain) RF: 0 ondansetron HCl 4 mg Tablet 4 mg PO Q6H PRN (Reason: Nausea) RF: 0 aspirin 81 mg Tablet,Delayed Release (Dr/Ec) 81 mg PO DAILY@1200 RF: 0 tramadol 50 mg Tablet 50 mg PO Q4H PRN (Reason: Pain) RF: 0 spironolactone 25 mg Tablet 25 mg PO SUMOWEFRSA@1000 RF: 0 alprazolam 0.5 mg Tablet 0.5 mg PO DAILY@1200,2200 PRN (Reason: Anxiety) RF: 0 nitroglycerin 0.4 mg Tablet, Sublingual 0.4 mg sublingual QAM PRN (Reason: Chest Pain) RF: 0 betamethasone, augmented 0.05 % Ointment 1 applic TOPICAL DAILY@0800,1700 RF: 0 folic acid 1 mg Tablet 1 mg PO DAILY@1200 RF: 0 metoprolol succinate 25 mg Tablet Extended Release 24 Hr 25 mg PO DAILY@1200 RF: 0 ergocalciferol (vitamin D2) [Vitamin D2] 50,000 unit Capsule 50,000 unit PO MO@1200 RF: 0 alum-mag hydroxide-simeth [Mi-Acid] 200-200-20 mg/5 mL Suspension 15 ml PO Q4H PRN (Reason: dyspepsea) RF: 0 albuterol sulfate [Ventolin HFA] 90 mcg/actuation Hfa Aerosol Inhaler 90 mcg inhalation Q4H PRN (Reason: Shortness Of Breath) RF: 0 ketoconazole 2 % Cream 2 % topical BID PRN (Reason: fungal infection) RF: 0 levothyroxine 112 mcg Tablet 112 mcg PO DAILY@0930 RF: 0 ezetimibe 10 mg Tablet 10 mg PO HS RF: 0 rosuvastatin 40 mg Tablet 40 mg PO HS RF: 0 Spiriva with HandiHaler 18 mcg Capsule, W/Inhalation Device 18 mcg inhalation DAILY@1000 RF: 0 duloxetine 60 mg Capsule,Delayed Release(Dr/Ec) 60 mg PO DAILY@1600 RF: 0 Refresh Optive 0.5-0.9 % Drops 0.5 drp OPB DAILY@0800,1200,1700 RF: 0 Soothe Night Time Lubricant 80-20 % Ointment 20 inch OPB HS RF: 0 Vitron-C 65 mg iron- 125 mg Tablet,Delayed Release (Dr/Ec) 65 tab PO DAILY@1200 RF: 0 guaifenesin [Mucinex] 600 mg Tablet Extended Release 12hr 600 mg PO BID PRN (Reason: Cough) RF: 0 fluticasone propion-salmeterol [Advair Diskus] 250-50 mcg/dose Blister With Device 1 inh INHALATION BID@1000,2000 RF: 0 buspirone 5 mg tablet 5 mg PO QAM RF: 0 morphine 30 mg Tablet Extended Release 30 mg PO DAILY@1000,2200 PRN (Reason: Pain) RF: 0 Discontinued levofloxacin 250 mg Tablet 250 mg PO DAILY@0800 RF: 0 Discharge Orders: Discharge Order (Routine); Ordered 05/03/19 Ordered By: Aquiles Braun/Other Patient Handouts: Infec MRSA Admission Data Admit Date/Time: 04/30/19 19:31 Attending Provider: Aquiles oTure Admit Provider: Doris Estevez Primary Care Provider: [facility] Other Providers: Doris Estevez ; Alf Hardy Other Interventions: Discharge Summary Assessment (RN) Last Done: 05/03/19 17:41 DC Date/Time DO NOT enter until pt leaves facility: 05/03/19 18:28
== END 2019-05-03 18:28 | disposition home or self-care (01) | DRG 603 ==
LOC: ED 15:37 → SUATTDRO 19:31 → 2W 19:31